=== PATIENT | male | born 1970 | race Caucasian/White ===

== ENCOUNTER 2019-10-17 01:32 | Inpatient (IN) | payer MEDICAID ==
[~2019-10-17] VITALS: Ht 165.1 cm; Wt 80.6 kg
[2019-10-17] MEDS ORDERED: NO HOME MEDS (01:40)
[2019-10-17] MEDS ORDERED: magnesium hydroxide 30ml (MOM) UD suspension PO PRN (02:40)
[2019-10-17] MEDS ORDERED: acetaminophen 325mg tablet PO PRN (02:40)
[2019-10-17] MEDS ORDERED: mag hydrox/Alum hydrox/simeth 30ml oral suspension PO PRN (02:40)
[2019-10-17] MEDS ORDERED: ondansetron/PF 4mg/2ml inj IV PRN (02:40)
[2019-10-17] MEDS ORDERED: morphine 2 MG/ML inj. syringe IV PRN (02:40)
[2019-10-17] MEDS: normal saline 1000ml 1,000 ML IV SCH ×4 (03:06→19:38)
--- NOTE | 2019-10-17 03:43 | NUR ---
Patient in room [facility]. I have received report from Ej MEEKS and had the opportunity to ask questions and assume patient care.
[2019-10-17 03:44] VITALS: BP 136/89
[2019-10-17] MEDS ORDERED: albuterol 2.5 MG/3 ML nebule NEB PRN (04:05)
--- NOTE | 2019-10-17 06:36 | NUR ---
Problems reprioritized. Patient report given, questions answered & plan of care reviewed with Fallon MEEKS.
[2019-10-17 07:40] VITALS: BP 136/84
[2019-10-17] MEDS: metroNIDAZOLE-Flagyl 500mg/NS 100 ML IV SCH ×2 (08:02→15:24)
[2019-10-17] MEDS: morphine 2 MG/ML inj. syringe IV PRN ×2 (08:08→21:17)
[2019-10-17] MEDS: piperacillin/tazo 3.375gm/50ml 50 ML IV SCH ×3 (09:33→23:59)
[2019-10-17 10:10] LABS: ALBUMIN 2.6 G/DL (3.4-5.0); ANION GAP 9 (8-16); BLOOD UREA NITROGEN 19 MG/DL (7-18); BUN/CREATININE RATIO 19.8 (5.4-32.0); CHLORIDE 103 MMOL/L (99-107); CREATININE 0.96 MG/DL (0.60-1.10); GLUCOSE 109 MG/DL (70-104); POTASSIUM 4.1 MMOL/L (3.5-5.1); SODIUM 134 MMOL/L (135-145); TOTAL CARBON DIOXIDE 21.6 MMOL/L (24-32); eGFR 84 ML/MIN
[2019-10-17 10:12] LABS: BASOPHILS # (AUTO) 0.2 X10'3 (0-0.2); BASOPHILS % (AUTO) 1.1 % (0-1); EOSINOPHILS # (AUTO) 0.1 X10'3 (0-0.9); EOSINOPHILS % (AUTO) 0.4 % (0-6); HEMATOCRIT 39.3 % (42.0-52.0); HEMOGLOBIN 13.5 g/dl (14.0-17.9); LYMPHOCYTES % (AUTO) 6.4 % (21-51); MEAN CORPUSCULAR HEMOGLOBIN 31.1 PG (27.0-31.0); MEAN CORPUSCULAR HGB CONC 34.2 g/dL (33.0-36.5); MEAN CORPUSCULAR VOLUME 90.9 FL (78-98); MEAN PLATELET VOLUME 7.8 FL (7.4-10.4); MONOCYTES # (AUTO) 0.7 X10'3 (0-0.9); MONOCYTES % (AUTO) 4.6 % (2-12); NEUTROPHILS # (AUTO) 13.6 X10'3 (1.8-7.7); NEUTROPHILS % (AUTO) 87.5 % (42-75); PLATELET COUNT 265 X10'3 (140-440); RED BLOOD COUNT 4.32 X10'6 (4.70-6.10); RED CELL DISTRIBUTION WIDTH 13.3 % (11.5-14.5); WHITE BLOOD COUNT 15.5 X10'3 (4.5-11.0)
[2019-10-17 10:44] LABS: TOTAL CELLS COUNTED 100
[2019-10-17 10:45] LABS: PLATELET ESTIMATE NORMAL
[2019-10-17 11:41] VITALS: BP 124/84
--- NOTE | 2019-10-17 18:24 | NUR ---
Problems reprioritized. Patient report given, questions answered & plan of care reviewed with CONSTANTINO GLASER.
--- NOTE | 2019-10-17 18:30 | NUR ---
Patient in room [facility]. I have received report from YULIET and had the opportunity to ask questions and assume patient care.
[2019-10-17 19:00] VITALS: BP 148/93
[2019-10-17] MEDS: lactobacillus rhamnosus 10,000 MMU CELLS/CAPSULE PO SCH (21:11)
[2019-10-17 23:30] VITALS: BP 134/89
[2019-10-18] MEDS: normal saline 1000ml 1,000 ML IV SCH ×3 (02:35→17:40)
[2019-10-18 05:39] LABS: BASOPHILS % (AUTO) 0.2 % (0-1); EOSINOPHILS # (AUTO) 0.3 X10'3 (0-0.9); HEMATOCRIT 37.4 % (42.0-52.0); HEMOGLOBIN 12.6 g/dl (14.0-17.9); LYMPHOCYTES # (AUTO) 1.5 X10'3 (1.1-4.8); LYMPHOCYTES % (AUTO) 11.2 % (21-51); MEAN CORPUSCULAR HEMOGLOBIN 30.7 PG (27.0-31.0); MEAN CORPUSCULAR HGB CONC 33.7 g/dL (33.0-36.5); MEAN CORPUSCULAR VOLUME 91.2 FL (78-98); MEAN PLATELET VOLUME 7.9 FL (7.4-10.4); MONOCYTES # (AUTO) 0.8 X10'3 (0-0.9); MONOCYTES % (AUTO) 5.9 % (2-12); NEUTROPHILS # (AUTO) 10.5 X10'3 (1.8-7.7); NEUTROPHILS % (AUTO) 80.7 % (42-75); PLATELET COUNT 284 X10'3 (140-440); RED BLOOD COUNT 4.11 X10'6 (4.70-6.10); RED CELL DISTRIBUTION WIDTH 13.2 % (11.5-14.5)
[2019-10-18 05:58] LABS: ALANINE AMINOTRANSFERASE 12 U/L (12-78); ALBUMIN 2.3 G/DL (3.4-5.0); ALBUMIN/GLOBULIN RATIO 0.6 (1.1-1.5); ALKALINE PHOSPHATASE 85 IU/L (46-116); ANION GAP 10 (8-16); ASPARTATE AMINO TRANSFERASE 12 U/L (10-37); BILIRUBIN,TOTAL 0.6 MG/DL (0.1-1.0); BLOOD UREA NITROGEN 17 MG/DL (7-18); BUN/CREATININE RATIO 17.5 (5.4-32.0); CALCIUM 7.9 MG/DL (8.5-10.1); CHLORIDE 105 MMOL/L (99-107); CREATININE 0.97 MG/DL (0.60-1.10); GLUCOSE 95 MG/DL (70-104); POTASSIUM 3.9 MMOL/L (3.5-5.1); SODIUM 137 MMOL/L (135-145); TOTAL CARBON DIOXIDE 21.6 MMOL/L (24-32); TOTAL PROTEIN 6.2 G/DL (6.4-8.2); eGFR 83 ML/MIN
--- NOTE | 2019-10-18 06:23 | NUR ---
Problems reprioritized. Patient report given, questions answered & plan of care reviewed with YULIET.
[2019-10-18 07:35] VITALS: BP 131/93
[2019-10-18] MEDS: piperacillin/tazo 3.375gm/50ml 50 ML IV SCH ×3 (08:17→23:39)
[2019-10-18] MEDS: lactobacillus rhamnosus 10,000 MMU CELLS/CAPSULE PO SCH ×2 (08:17→21:32)
[2019-10-18 12:09] VITALS: BP 119/82
--- NOTE | 2019-10-18 18:07 | NUR ---
Problems reprioritized. Patient report given, questions answered & plan of care reviewed with CONSTANTINO GLASER.
--- NOTE | 2019-10-18 18:30 | NUR ---
Patient in room [facility]. I have received report from YULIET and had the opportunity to ask questions and assume patient care.
[2019-10-18 19:00] VITALS: BP 131/85
[2019-10-18] MEDS: morphine 2 MG/ML inj. syringe IV PRN (21:30)
[2019-10-18] MEDS: diatr meglu/diatrizoate 30ml oral sol.-(3 dose) bottle PO SCH (21:32)
[2019-10-18 23:30] VITALS: BP 149/93
[2019-10-19] MEDS: normal saline 1000ml 1,000 ML IV SCH ×4 (00:33→19:28)
[2019-10-19 06:26] LABS: BASOPHILS % (AUTO) 0.3 % (0-1); EOSINOPHILS # (AUTO) 0.3 X10'3 (0-0.9); EOSINOPHILS % (AUTO) 3.1 % (0-6); HEMATOCRIT 35.6 % (42.0-52.0); HEMOGLOBIN 11.9 g/dl (14.0-17.9); LYMPHOCYTES # (AUTO) 1.6 X10'3 (1.1-4.8); LYMPHOCYTES % (AUTO) 14.7 % (21-51); MEAN CORPUSCULAR HEMOGLOBIN 30.4 PG (27.0-31.0); MEAN CORPUSCULAR HGB CONC 33.3 g/dL (33.0-36.5); MEAN CORPUSCULAR VOLUME 91.3 FL (78-98); MEAN PLATELET VOLUME 7.6 FL (7.4-10.4); NEUTROPHILS % (AUTO) 72.9 % (42-75); PLATELET COUNT 310 X10'3 (140-440); RED CELL DISTRIBUTION WIDTH 13.2 % (11.5-14.5)
[2019-10-19 06:45] LABS: ALANINE AMINOTRANSFERASE 14 U/L (12-78); ALBUMIN 2.3 G/DL (3.4-5.0); ALBUMIN/GLOBULIN RATIO 0.6 (1.1-1.5); ALKALINE PHOSPHATASE 89 IU/L (46-116); ANION GAP 8 (8-16); ASPARTATE AMINO TRANSFERASE 15 U/L (10-37); BILIRUBIN,TOTAL 0.5 MG/DL (0.1-1.0); BLOOD UREA NITROGEN 11 MG/DL (7-18); BUN/CREATININE RATIO 12.6 (5.4-32.0); CALCIUM 7.7 MG/DL (8.5-10.1); CHLORIDE 105 MMOL/L (99-107); CREATININE 0.87 MG/DL (0.60-1.10); GLUCOSE 89 MG/DL (70-104); SODIUM 136 MMOL/L (135-145); TOTAL CARBON DIOXIDE 23.2 MMOL/L (24-32); TOTAL PROTEIN 6.1 G/DL (6.4-8.2); eGFR > 90 ML/MIN
--- NOTE | 2019-10-19 06:55 | NUR ---
Patient in room [facility]. I have received report from Anna MEEKS and had the opportunity to ask questions and assume patient care.
[2019-10-19 07:00] VITALS: BP 120/91
[2019-10-19] MEDS: lactobacillus rhamnosus 10,000 MMU CELLS/CAPSULE PO SCH ×2 (07:22→19:27)
[2019-10-19] MEDS: diatr meglu/diatrizoate 30ml oral sol.-(3 dose) bottle PO SCH ×2 (07:22→09:57)
[2019-10-19] MEDS: piperacillin/tazo 3.375gm/50ml 50 ML IV SCH ×3 (07:34→23:16)
[2019-10-19] MEDS ORDERED: iohexol 300mg/ml 100ml inj. ONE (09:55)
[2019-10-19 11:00] VITALS: BP 134/105
[2019-10-19 11:58] VITALS: BP 134/102
--- NOTE | 2019-10-19 18:15 | NUR ---
Patient in room [facility]. I have received report from CONSTANTINO Vazquez and had the opportunity to ask questions and assume patient care.
--- NOTE | 2019-10-19 18:50 | NUR ---
Problems reprioritized. Patient report given, questions answered & plan of care reviewed with Kathya MEEKS.
[2019-10-19 19:54] VITALS: BP 143/88
--- NOTE | 2019-10-19 20:00 | NUR ---
Pt states up to restroom every hour to urinate and have a BM. States stools are brown and lose.
[2019-10-20] VITALS: BP 136/90
[2019-10-20] MEDS: normal saline 1000ml 1,000 ML IV SCH (01:48)
[2019-10-20 05:15] LABS: ALANINE AMINOTRANSFERASE 14 U/L (12-78); ALBUMIN 2.2 G/DL (3.4-5.0); ALBUMIN/GLOBULIN RATIO 0.6 (1.1-1.5); ALKALINE PHOSPHATASE 75 IU/L (46-116); ANION GAP 8 (8-16); ASPARTATE AMINO TRANSFERASE 15 U/L (10-37); BILIRUBIN,TOTAL 0.3 MG/DL (0.1-1.0); BLOOD UREA NITROGEN 9 MG/DL (7-18); BUN/CREATININE RATIO 10.3 (5.4-32.0); CALCIUM 7.8 MG/DL (8.5-10.1); CHLORIDE 105 MMOL/L (99-107); CREATININE 0.87 MG/DL (0.60-1.10); GLUCOSE 94 MG/DL (70-104); POTASSIUM 3.8 MMOL/L (3.5-5.1); SODIUM 137 MMOL/L (135-145); TOTAL CARBON DIOXIDE 23.6 MMOL/L (24-32); TOTAL PROTEIN 5.9 G/DL (6.4-8.2); eGFR > 90 ML/MIN
[2019-10-20 05:34] LABS: BASOPHILS % (AUTO) 0.3 % (0-1); EOSINOPHILS # (AUTO) 0.3 X10'3 (0-0.9); EOSINOPHILS % (AUTO) 3.1 % (0-6); HEMATOCRIT 34.3 % (42.0-52.0); HEMOGLOBIN 11.8 g/dl (14.0-17.9); LYMPHOCYTES # (AUTO) 1.8 X10'3 (1.1-4.8); LYMPHOCYTES % (AUTO) 17.3 % (21-51); MEAN CORPUSCULAR HEMOGLOBIN 31.2 PG (27.0-31.0); MEAN CORPUSCULAR HGB CONC 34.3 g/dL (33.0-36.5); MEAN CORPUSCULAR VOLUME 90.8 FL (78-98); MEAN PLATELET VOLUME 7.5 FL (7.4-10.4); MONOCYTES % (AUTO) 9.9 % (2-12); NEUTROPHILS # (AUTO) 7.3 X10'3 (1.8-7.7); NEUTROPHILS % (AUTO) 69.4 % (42-75); PLATELET COUNT 309 X10'3 (140-440); RED BLOOD COUNT 3.78 X10'6 (4.70-6.10); RED CELL DISTRIBUTION WIDTH 12.9 % (11.5-14.5); WHITE BLOOD COUNT 10.5 X10'3 (4.5-11.0)
--- NOTE | 2019-10-20 06:37 | NUR ---
Problems reprioritized. Patient report given, questions answered & plan of care reviewed with CONSTANTINO Vazquez.
--- NOTE | 2019-10-20 06:50 | NUR ---
Patient in room [facility]. I have received report from Kathya MEEKS and had the opportunity to ask questions and assume patient care.
[2019-10-20 08:00] VITALS: BP 139/95
[2019-10-20] MEDS: lactobacillus rhamnosus 10,000 MMU CELLS/CAPSULE PO SCH (08:01)
[2019-10-20] MEDS: piperacillin/tazo 3.375gm/50ml 50 ML IV SCH (08:01)
[2019-10-20 11:00] VITALS: BP 152/94
[2019-10-20] MEDS ORDERED: LEVO750T21 PO (15:15)
[2019-10-20] MEDS ORDERED: METR-159 PO (15:15)
[2019-10-20] MEDS ORDERED: HYDR-4383 PO ×2 (15:15→15:17)
--- NOTE | 2019-10-20 16:20 | NUR ---
Pt DC to home in [place]. Pt is A & Ox4 and in no apparent distress. Pt has not taken no pain meds in the last 2 days and states he is feeling very well. Pt will follow up with Dr Shaw in two weeks. Pt verbalizes understanding of all DC instructions and was able to teach back the importance of finishing antibiotics. Pt packed all of his belongings and will drive himself home. Pt ate regular meals on since this morning and has tolerated meals well. No pain. Pt walked to the front where he went home.
--- NOTE | 2019-10-20 16:25 | NUR ---
pt DC to [facility] where pt lived with his . Pt is A & O x4 and in no apparent distress. Pt verbalizes understanding of all DC orders and understands the importance of following up with Dr Sawyer and Clay . [facility] was also informed of the importance of following up with Dr's mention above. 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 pt's IV cath was removed and it was intact. Pt was loaded onto his own wheel chair brought in by [facility] advanced practice psychiatric nurse. Pt was helped into wheelchair. Pt taken by [facility] employee with all of his personal belongings. Addendum: 10/20/19 at 1939 by Taylor Armando RN wrong pt
== END 2019-10-20 16:19 | disposition home or self-care (01) | DRG 244 ==
LOC: ER 01:33 → ED HOLD 02:37 → SUR 3N 03:23
PROVIDERS: ADMIT Internal Medicine; ATTEND Family Medicine
DX: K57.20 Diverticulitis of large intestine with perforation and abscess without bleeding (principal); K65.8 Other peritonitis; Z79.899 Other long term (current) drug therapy
CPT/HCPCS: 36415; 74177; 80048; 80053; 85025; 87081; 94760; 99285; G0378; J2270; J2543; J3490; J7030; Q9963; Q9967

== ENCOUNTER 2020-07-26 18:58 | Emergency (ER) | payer MEDICAID ==
[~2020-07-26] VITALS: Ht 165.1 cm; Wt 70.5 kg
[~2020-07-26 18:58] MED LIST: HYDR-4383 PO
--- NOTE | 2020-07-26 19:22 | NUR ---
PT TAKEN BACK TO ROOM 8 FRMO TRIAGE AND PLACED IN AIRBORN ISOLATION PRECAUTIONS. OVEN UNLOADERRAFY UPDATED OF PT R/O COVID.
[2020-07-26] MEDS ORDERED: normal saline 1000ML IV soln IV ONE (19:30)
[2020-07-26] MEDS ORDERED: acetaminophen 325mg tablet PO ONE (19:30)
[2020-07-26 20:13] LABS: MEAN CORPUSCULAR HEMOGLOBIN 30.9 PG (27.0-31.0); MONOCYTES # (AUTO) 0.4 X10'3 (0-0.9)
[2020-07-26 20:16] LABS: BASOPHILS % (AUTO) 0.6 % (0-1); EOSINOPHILS % (AUTO) 0 % (0-6); HEMATOCRIT 51.6 % (42.0-52.0); HEMOGLOBIN 17.7 g/dl (14.0-17.9); LYMPHOCYTES # (AUTO) 1.7 X10'3 (1.1-4.8); LYMPHOCYTES % (AUTO) 22.9 % (21-51); MEAN CORPUSCULAR HGB CONC 34.4 g/dL (33.0-36.5); MEAN CORPUSCULAR VOLUME 89.8 FL (78-98); MEAN PLATELET VOLUME 7.5 FL (7.4-10.4); MONOCYTES % (AUTO) 4.9 % (2-12); NEUTROPHILS # (AUTO) 5.2 X10'3 (1.8-7.7); NEUTROPHILS % (AUTO) 71.6 % (42-75); PLATELET COUNT 236 X10'3 (140-440); RED BLOOD COUNT 5.74 X10'6 (4.70-6.10); RED CELL DISTRIBUTION WIDTH 13.4 % (11.5-14.5); WHITE BLOOD COUNT 7.2 X10'3 (4.5-11.0)
[2020-07-26 20:30] LABS: ALANINE AMINOTRANSFERASE 46 U/L (12-78); ALBUMIN 3.8 G/DL (3.4-5.0); ALBUMIN/GLOBULIN RATIO 0.8 (1.1-1.5); ALKALINE PHOSPHATASE 144 IU/L (46-116); ANION GAP 12 (8-16); ASPARTATE AMINO TRANSFERASE 47 U/L (10-37); BILIRUBIN,TOTAL 0.4 MG/DL (0.1-1.0); BLOOD UREA NITROGEN 21 MG/DL (7-18); BUN/CREATININE RATIO 16.7 (5.4-32.0); CALCIUM 9.2 MG/DL (8.5-10.1); CHLORIDE 95 MMOL/L (99-107); CREATININE 1.26 MG/DL (0.60-1.10); GLUCOSE 99 MG/DL (70-104); POTASSIUM 4.6 MMOL/L (3.5-5.1); SODIUM 132 MMOL/L (135-145); TOTAL PROTEIN 8.6 G/DL (6.4-8.2); eGFR 61 ML/MIN
[2020-07-26 22:00] LABS: CLARITY,URINE SLIGHTLY CLOUDY (Clear); GLUCOSE, URINE NEGATIVE (Neg); KETONES,URINE 15 mg/dl (Neg); LEUKOCYTE ESTERASE ,URINE NEGATIVE (Neg); NITRITES, URINE NEGATIVE (Neg); OCCULT BLOOD,URINE NEGATIVE (Neg); PH,URINE 5.5 (4.8-8.0); PROTEIN,URINE 30 mg/dl (Neg); UROBILINOGEN,URINE 0.2 E.U/dL (0.2-1.0)
[2020-07-26 22:02] LABS: COLOR,URINE DARK YELLOW (Yellow); UA COLLECTION TYPE CLN CATCH MIDSTREAM
[2020-07-26 22:07] LABS: BACTERIA,URINE FEW /HPF (Neg); MUCUS STRANDS MANY /LPF (Neg); RBC,URINE NONE SEEN /HPF (0-2); SQUAMOUS EPITHELIAL CELL,UR FEW /LPF (FEW); WBC,URINE 0-4 /HPF (0-4)
[2020-07-26 22:08] LABS: AMORPHOUS URATES 1+
[2020-07-26 22:16] LABS: URINE AMPHETAMINE SCREEN POSITIVE (Neg); URINE BARBITUATE SCREEN NEGATIVE (Neg); URINE BENZODIAZEPINES SCREEN NEGATIVE (Neg); URINE CANNABINOID SCREEN POSITIVE (Neg); URINE COCAINE SCREEN NEGATIVE (Neg); URINE METHADONE SCREEN NEGATIVE (Neg); URINE OPIATE SCREEN NEGATIVE (Neg); URINE PHENCYCLIDINE SCREEN NEGATIVE (Neg)
[2020-07-27 01:19] VITALS: BP 122/71
== END 2020-07-27 01:21 | disposition home or self-care (01) ==
LOC: ER 18:59
DX: R50.9 Fever, unspecified (principal); Z20.822 Contact with and (suspected) exposure to COVID-19; R53.1 Weakness; K63.2 Fistula of intestine; N32.1 Vesicointestinal fistula; R63.0 Anorexia; R05 Cough; R10.84 Generalized abdominal pain; F17.200 Nicotine dependence, unspecified, uncomplicated; Z72.89 Other problems related to lifestyle; Z79.899 Other long term (current) drug therapy
CPT/HCPCS: 36415; 71045; 74176; 80053; 80305; 81001; 83605; 83735; 84145; 85025; 87040; 87502; 87503; 87635; 93005; 96360; 96361; 99285; C9803; J7030

== ENCOUNTER 2022-02-06 11:20 | Emergency (ER) | payer MEDICAID ==
[~2022-02-06] VITALS: Ht 165.1 cm; Wt 72.7 kg
[2022-02-06 12:30] LABS: BASOPHILS # (AUTO) 0.2 X10'3 (0-0.2); BASOPHILS % (AUTO) 1.1 % (0-1); EOSINOPHILS # (AUTO) 0.2 X10'3 (0-0.9); HEMATOCRIT 44.3 % (42.0-52.0); HEMOGLOBIN 14.8 g/dl (14.0-17.9); LYMPHOCYTES # (AUTO) 3.7 X10'3 (1.1-4.8); LYMPHOCYTES % (AUTO) 24.6 % (21-51); MEAN CORPUSCULAR HEMOGLOBIN 29.6 PG (27.0-31.0); MEAN CORPUSCULAR HGB CONC 33.4 g/dL (33.0-36.5); MEAN CORPUSCULAR VOLUME 88.7 FL (78-98); MEAN PLATELET VOLUME 6.7 FL (7.4-10.4); MONOCYTES # (AUTO) 0.9 X10'3 (0-0.9); MONOCYTES % (AUTO) 5.7 % (2-12); NEUTROPHILS # (AUTO) 10.1 X10'3 (1.8-7.7); NEUTROPHILS % (AUTO) 67.6 % (42-75); PLATELET COUNT 585 X10'3 (140-440); RED CELL DISTRIBUTION WIDTH 13.3 % (11.5-14.5); WHITE BLOOD COUNT 14.9 X10'3 (4.5-11.0)
[2022-02-06] MEDS ORDERED: normal saline 1000ml 1,000 ML IV ONE (13:45)
[2022-02-06] MEDS ORDERED: ondansetron/PF 4mg/2ml inj IV ONE (13:45)
[2022-02-06] MEDS ORDERED: morphine 4 MG/ML inj SYRINge IV ONE (13:45)
[2022-02-06 14:36] VITALS: BP 100/82
[2022-02-06 15:06] LABS: ALANINE AMINOTRANSFERASE 17 U/L (12-78); ALBUMIN 3.5 G/DL (3.4-5.0); ALBUMIN/GLOBULIN RATIO 0.8 (1.1-1.5); ALKALINE PHOSPHATASE 99 IU/L (46-116); ANION GAP 13 (8-16); ASPARTATE AMINO TRANSFERASE 19 U/L (10-37); BILIRUBIN,TOTAL 0.3 MG/DL (0.1-1.0); BLOOD UREA NITROGEN 21 MG/DL (7-18); BUN/CREATININE RATIO 17.9 (5.4-32.0); CALCIUM 9.4 MG/DL (8.5-10.1); CHLORIDE 103 MMOL/L (99-107); CREATININE 1.17 MG/DL (0.60-1.10); GLUCOSE 131 MG/DL (70-104); LIPASE 121 U/L (73-393); POTASSIUM 4.2 MMOL/L (3.5-5.1); SODIUM 139 MMOL/L (135-145); TOTAL CARBON DIOXIDE 22.7 MMOL/L (24-32); TOTAL PROTEIN 7.8 G/DL (6.4-8.2); eGFR 66 ML/MIN
[2022-02-06] MEDS ORDERED: AZIT-31 PO (16:29)
== END 2022-02-06 16:47 | disposition home or self-care (01) ==
LOC: ER 11:21
DX: N45.2 Orchitis (principal); R10.31 Right lower quadrant pain; Z79.899 Other long term (current) drug therapy
CPT/HCPCS: 36415; 74176; 76870; 80053; 83690; 84145; 85025; 93976; 96361; 96374; 96375; 99285; J2270; J2405; J7030

== ENCOUNTER 2022-03-19 05:29 | Inpatient (IN) | payer MEDICAID ==
[2022-03-12 10:03] LABS: CLARITY,URINE CLOUDY (Clear); COLOR,URINE YELLOW (Yellow); GLUCOSE, URINE NEGATIVE (Neg); KETONES,URINE NEGATIVE (Neg); LEUKOCYTE ESTERASE ,URINE SMALL (Neg); NITRITES, URINE NEGATIVE (Neg); OCCULT BLOOD,URINE TRACE-INTACT (Neg); PH,URINE 6.5 (4.8-8.0); PROTEIN,URINE NEGATIVE (Neg); UROBILINOGEN,URINE 0.2 E.U/dL (0.2-1.0)
[2022-03-12 10:05] LABS: BASOPHILS # (AUTO) 0.1 X10'3 (0-0.2); BASOPHILS % (AUTO) 0.5 % (0-1); EOSINOPHILS # (AUTO) 0.2 X10'3 (0-0.9); EOSINOPHILS % (AUTO) 2.3 % (0-6); LYMPHOCYTES # (AUTO) 2.9 X10'3 (1.1-4.8); LYMPHOCYTES % (AUTO) 29.3 % (21-51); MEAN CORPUSCULAR HEMOGLOBIN 30.1 PG (27.0-31.0); MEAN CORPUSCULAR HGB CONC 33.9 g/dL (33.0-36.5); MEAN CORPUSCULAR VOLUME 88.8 FL (78-98); MEAN PLATELET VOLUME 7.1 FL (7.4-10.4); MONOCYTES # (AUTO) 0.7 X10'3 (0-0.9); MONOCYTES % (AUTO) 7.5 % (2-12); NEUTROPHILS # (AUTO) 5.9 X10'3 (1.8-7.7); NEUTROPHILS % (AUTO) 60.4 % (42-75); PRE OP HEMATOCRIT 43.4 % (42.0-52.0); PRE OP HEMOGLOBIN 14.7 g/dL (14.0-17.9); PRE OP PLATELET COUNT 357 X10'3 (140-440); RED BLOOD COUNT 4.88 X10'6 (4.70-6.10); RED CELL DISTRIBUTION WIDTH 13.7 % (11.5-14.5)
[2022-03-12 10:18] LABS: UA COLLECTION TYPE VOIDED
[2022-03-12 10:26] LABS: ALBUMIN 3.9 G/DL (3.4-5.0); ALBUMIN/GLOBULIN RATIO 1.1 (1.1-1.5); ALKALINE PHOSPHATASE 126 IU/L (46-116); BLOOD UREA NITROGEN 19 MG/DL (7-18); BUN/CREATININE RATIO 17.4 (5.4-32.0); CALCIUM 8.7 MG/DL (8.5-10.1); CHLORIDE 102 MMOL/L (99-107); CREATININE 1.09 MG/DL (0.60-1.10); PRE OP ALT 41 U/L (30-65); PRE OP ANION GAP 8 (8-16); PRE OP AST 31 U/L (10-37); PRE OP BILIRUB, TOTAL 0.4 MG/DL (0.0-1.0); PRE OP GLUCOSE 102 MG/DL (70-104); PRE OP SODIUM 138 MMOL/L (135-145); TOTAL CARBON DIOXIDE 27.9 MMOL/L (24-32); TOTAL PROTEIN 7.5 G/DL (6.4-8.2); eGFR 72 ML/MIN
[2022-03-12 10:29] LABS: BACTERIA,URINE 1+ /HPF (Neg); MUCUS STRANDS NONE SEEN /LPF (Neg); SQUAMOUS EPITHELIAL CELL,UR FEW /LPF (FEW)
[2022-03-12 10:41] LABS: TRANSITIONAL EPI CELLS,URINE FEW /HPF; WBC,URINE 30-50 /HPF (0-4)
[2022-03-19] VITALS (20 sets, daily range): BP systolic 102–156; BP diastolic 48–105
[~2022-03-19] VITALS: Ht 165.1 cm; Wt 72.6 kg
[~2022-03-19 05:29] MED LIST changes: -HYDR-4383 PO; +NO HOME MEDS; +ringers solution, lacted 1,000 ML IV SCH
[2022-03-19] MEDS ORDERED: albuterol 2.5 MG/3 ML nebule NEB ONE (05:30)
[2022-03-19] MEDS ORDERED: ceFAZolin inj. 2,000 MG in dextrose 5%-water 100 ML IV ONE (05:30)
[2022-03-19] MEDS ORDERED: famotidine 20mg tablet PO ONE (05:30)
[2022-03-19] MEDS ORDERED: fentaNYL/PF 50MCG/1 ML 2ML syringe ONE (06:37)
[2022-03-19] MEDS ORDERED: MIDAZolam 1 MG/ML 5ML VIAL ONE (06:38)
--- NOTE | 2022-03-19 13:16 | NUR ---
(5030) PT RETRIEVED FROM PAS UNIT BY GI LAB. (6675) RETURNED TO PAS UNIT. DROWSY BUT AWAKENS EASILY. SAO2 96-100% RA, P 69, RR 14. IV PATENT LEFT HAND #20 WITH LR AT TKO ON A PUMP.(1315) PT HAS BEEN SLEEPING MOSTLY. CONT O2 MONITOR REMAINS BETWEEN 96-100% RA, BP112/82, P 74, R 15. DENIES ANY DISCOMFORT WHEN ASKED, AWAITING SURGERY
--- NOTE | 2022-03-19 13:33 | NUR ---
PT'S YANDEL ARRIVED. PT UP WALKING, VOID BRP. YANDEL TAKING 1 CELL PHONE HOME TO CHARGE
[2022-03-19] MEDS ORDERED: morphine 4 MG/ML inj SYRINge IV PRN (13:50)
[2022-03-19] MEDS ORDERED: hydrALAZINE 20mg/ml inj. IV PRN (13:50)
[2022-03-19] MEDS ORDERED: labetalol 20mg/4ml (5mg/ml) syringe IV PRN (13:50)
[2022-03-19] MEDS ORDERED: acetaminophen 1,000mg/100ml IV 100 ML IV PRN (13:50)
[2022-03-19] MEDS ORDERED: ringers solution, lacted 1,000 ML IV SCH (13:50)
[2022-03-19] MEDS ORDERED: morphine 2 MG/ML inj. syringe IV PRN (13:50)
[2022-03-19] MEDS ORDERED: proCHLORperazine 10 MG/2 ml inj IV PRN (13:50)
[2022-03-19] MEDS ORDERED: meperidine/PF 25mg/ml syringe IV PRN ×3 (13:50)
[2022-03-19] MEDS ORDERED: ondansetron/PF 4mg/2ml inj IV PRN ×2 (13:50→19:05)
[2022-03-19] MEDS ORDERED: LIDOcaine 1% 30ml preserv. free vial ONE (13:58)
[2022-03-19] MEDS ORDERED: BUPIVAcaine 0.5% inj/PF 30 ML ONE (13:59)
[2022-03-19] MEDS ORDERED: INDOCYANINE GREEN 25 MG/10 ML VIAL IV ONE (14:01)
[2022-03-19] MEDS ORDERED: midazolam 1 mg/ML 2ml injection ONE (14:27)
[2022-03-19] MEDS ORDERED: fentaNYL /PF 50mcg/ml 5ml ampule ONE ×2 (14:28→18:23)
[2022-03-19] MEDS ORDERED: metroNIDAZOLE-Flagyl 500mg/NS 100 ML IV ONE (15:02)
[2022-03-19] MEDS ORDERED: propofol inj 20 ML IV ONE (15:04)
[2022-03-19] MEDS ORDERED: LIDOcaine 1%/PF 5ML 10 MG/ML VIAL ONE ×2 (15:04)
[2022-03-19] MEDS ORDERED: rocuronium 10mg/ml inj IV ONE ×2 (15:04→18:23)
[2022-03-19] MEDS ORDERED: dexamethasone sod phosphate 4mg/ml inj. ONE (15:38)
[2022-03-19] MEDS ORDERED: ondansetron/PF 4mg/2ml inj ONE (15:38)
[2022-03-19] MEDS ORDERED: BUPIVAcaine 0.5% inj/PF 30 ml vial IJ ONE (15:50)
[2022-03-19] MEDS ORDERED: neostigmine methylsulfate 1 MG/ML 10ml vial ONE (18:50)
[2022-03-19] MEDS ORDERED: glycopyrrolate 0.2mg/ml inj ONE (18:50)
[2022-03-19] MEDS ORDERED: naloxone 0.4 mg/ml inj IV PRN (19:05)
--- NOTE | 2022-03-19 19:07 | NUR ---
Received from OR via HOSPITAL BED, accompanied by Anesthesiologist and report given by CHUCK Anesthesiologist. PATIENT WAKING UP, DENIES PAIN, V/S WNL, SCD ON , PIV 20G LEFT HAND, ABDOMEN DRESSING C/D/I. WILLIS CATHETER DRAINING CLEAR YELLOW URINE. Addendum: 03/19/22 at 1935 by Espinoza Rangel RN Amended: Links added.
[2022-03-19] MEDS: HYDROmorph/NS 0.2 mg/ml PCA 100 ML IV SCH ×3 (19:38→23:00)
--- NOTE | 2022-03-19 19:57 | NUR ---
PATIENT HAS MET ALL CRITERIA FOR TRANSFER TO THE SURGICAL FLOOR. VSS. DRESSINGS INTACT. BED LOW, CALL LIGHT PRESENT AND 2 RAILS UP. RN PRESENT TO ACCEPT CARE OF PATIENT AND REPORT HAS BEEN CALLED. ALL QUESTIONS ANSWERED TO ACCEPTING RN. Addendum: 03/19/22 at 2009 by Espinoza Rangel RN Amended: Links added.
--- NOTE | 2022-03-19 20:05 | NUR ---
pt arrived his at the bedside. received report prior to pt's arrival.
[2022-03-19] MEDS: potassium CL 20mEq in D5-1/2NS 1,000 ML IV SCH (22:09)
[2022-03-19] MEDS: normal saline 1000ml 1,000 ML IV SCH (22:35)
[2022-03-19] MEDS: piperacillin/tazo 4.5gm/100ml 100 ML IV SCH (23:21)
[2022-03-19] MEDS: ketorolac tromethamine 15mg/ml inj. IV SCH (23:21)
[2022-03-20] MEDS: HYDROmorph/NS 0.2 mg/ml PCA 100 ML IV SCH ×12 (01:00→23:00)
[2022-03-20 02:00] VITALS: BP 101/62
[2022-03-20] MEDS: potassium CL 20mEq in D5-1/2NS 1,000 ML IV SCH ×3 (05:38→20:38)
[2022-03-20 06:00] VITALS: BP 106/62
--- NOTE | 2022-03-20 06:34 | NUR ---
Problems reprioritized. Patient report given, questions answered & plan of care reviewed with CONSTANTINO AKERS.
--- NOTE | 2022-03-20 06:44 | NUR ---
Patient in room [facility] 344. I have received report from Zoila MEEKS and had the opportunity to ask questions and assume patient care.
[2022-03-20 07:07] LABS: BASOPHILS % (AUTO) 0.1 % (0-1); EOSINOPHILS % (AUTO) 0 % (0-6); HEMATOCRIT 38.8 % (42.0-52.0); HEMOGLOBIN 13.1 g/dl (14.0-17.9); LYMPHOCYTES # (AUTO) 1.1 X10'3 (1.1-4.8); LYMPHOCYTES % (AUTO) 9.5 % (21-51); MEAN CORPUSCULAR HEMOGLOBIN 30.3 PG (27.0-31.0); MEAN CORPUSCULAR HGB CONC 33.9 g/dL (33.0-36.5); MEAN CORPUSCULAR VOLUME 89.4 FL (78-98); MEAN PLATELET VOLUME 7.6 FL (7.4-10.4); MONOCYTES # (AUTO) 0.6 X10'3 (0-0.9); MONOCYTES % (AUTO) 5.1 % (2-12); NEUTROPHILS # (AUTO) 10.4 X10'3 (1.8-7.7); NEUTROPHILS % (AUTO) 85.3 % (42-75); PLATELET COUNT 306 X10'3 (140-440); RED BLOOD COUNT 4.34 X10'6 (4.70-6.10); RED CELL DISTRIBUTION WIDTH 13.9 % (11.5-14.5); WHITE BLOOD COUNT 12.2 X10'3 (4.5-11.0)
[2022-03-20] MEDS: albuterol 2.5 MG/3 ML nebule NEB SCH ×4 (07:28→19:42)
[2022-03-20 08:01] LABS: ALBUMIN 2.9 G/DL (3.4-5.0); ANION GAP 8 (8-16); BLOOD UREA NITROGEN 17 MG/DL (7-18); BUN/CREATININE RATIO 14.5 (5.4-32.0); CALCIUM 7.3 MG/DL (8.5-10.1); CHLORIDE 102 MMOL/L (99-107); CREATININE 1.17 MG/DL (0.60-1.10); GLUCOSE 169 MG/DL (70-104); POTASSIUM 4.7 MMOL/L (3.5-5.1); SODIUM 134 MMOL/L (135-145); TOTAL CARBON DIOXIDE 24.5 MMOL/L (24-32); eGFR 66 ML/MIN
[2022-03-20] MEDS: normal saline 1000ml 1,000 ML IV SCH (08:25)
[2022-03-20] MEDS: ketorolac tromethamine 15mg/ml inj. IV SCH ×2 (08:43→15:38)
[2022-03-20] MEDS: piperacillin/tazo 4.5gm/100ml 100 ML IV SCH ×2 (08:43→15:38)
[2022-03-20] MEDS: enoxaparin 40mg/0.4ml syringe SQ SCH (08:43)
[2022-03-20 11:00] VITALS: BP 106/66
[2022-03-20 18:00] VITALS: BP 108/69
--- NOTE | 2022-03-20 18:41 | NUR ---
Patient in room [facility] 344. I have received report from Mey SANCHEZ and had the opportunity to ask questions and assume patient care.
--- NOTE | 2022-03-20 18:44 | NUR ---
Problems reprioritized. Patient report given, questions answered & plan of care reviewed with Jessi MEEKS.
--- NOTE | 2022-03-20 19:00 | NUR ---
Patient drank broth, apple juice, icy and ate jello. Addendum: 03/21/22 at 0105 by Jessi Luna RN Amended: Links added.
[2022-03-20 22:00] VITALS: BP 117/77
[2022-03-21] MEDS: ketorolac tromethamine 15mg/ml inj. IV SCH ×3 (00:07→16:28)
[2022-03-21] MEDS: piperacillin/tazo 4.5gm/100ml 100 ML IV SCH ×3 (00:07→16:28)
[2022-03-21] MEDS: HYDROmorph/NS 0.2 mg/ml PCA 100 ML IV SCH ×7 (01:00→12:52)
[2022-03-21] MEDS: potassium CL 20mEq in D5-1/2NS 1,000 ML IV SCH ×2 (04:33→12:43)
[2022-03-21 05:00] VITALS: BP 120/95
[2022-03-21 06:28] LABS: BASOPHILS % (AUTO) 0.2 % (0-1); EOSINOPHILS # (AUTO) 0.3 X10'3 (0-0.9); EOSINOPHILS % (AUTO) 2.6 % (0-6); HEMATOCRIT 35.7 % (42.0-52.0); HEMOGLOBIN 11.9 g/dl (14.0-17.9); LYMPHOCYTES % (AUTO) 30.6 % (21-51); MEAN CORPUSCULAR HEMOGLOBIN 30.1 PG (27.0-31.0); MEAN CORPUSCULAR HGB CONC 33.3 g/dL (33.0-36.5); MEAN CORPUSCULAR VOLUME 90.4 FL (78-98); MEAN PLATELET VOLUME 7.5 FL (7.4-10.4); MONOCYTES # (AUTO) 0.7 X10'3 (0-0.9); MONOCYTES % (AUTO) 7.6 % (2-12); NEUTROPHILS # (AUTO) 5.8 X10'3 (1.8-7.7); PLATELET COUNT 271 X10'3 (140-440); RED BLOOD COUNT 3.95 X10'6 (4.70-6.10); RED CELL DISTRIBUTION WIDTH 14.5 % (11.5-14.5); WHITE BLOOD COUNT 9.8 X10'3 (4.5-11.0)
[2022-03-21 06:29] LABS: ALBUMIN 2.8 G/DL (3.4-5.0); ANION GAP 7 (8-16); BLOOD UREA NITROGEN 15 MG/DL (7-18); BUN/CREATININE RATIO 12.3 (5.4-32.0); CALCIUM 7.5 MG/DL (8.5-10.1); CHLORIDE 105 MMOL/L (99-107); CREATININE 1.22 MG/DL (0.60-1.10); GLUCOSE 107 MG/DL (70-104); POTASSIUM 4.1 MMOL/L (3.5-5.1); SODIUM 137 MMOL/L (135-145); TOTAL CARBON DIOXIDE 25.5 MMOL/L (24-32); eGFR 63 ML/MIN
--- NOTE | 2022-03-21 06:47 | NUR ---
Patient in room [facility] 344. I have received report from Jessi and had the opportunity to ask questions and assume patient care.
--- NOTE | 2022-03-21 06:50 | NUR ---
Problems reprioritized. Patient report given, questions answered & plan of care reviewed with Vale MEEKS.
[2022-03-21] MEDS: albuterol 2.5 MG/3 ML nebule NEB SCH ×4 (07:10→19:56)
[2022-03-21] MEDS: enoxaparin 40mg/0.4ml syringe SQ SCH (08:11)
[2022-03-21 11:00] VITALS: BP 119/81
[2022-03-21] MEDS ORDERED: oxyCODONE/APAP 5-325mg tablet PO PRN (15:40)
[2022-03-21] MEDS ORDERED: PCA WASTE DOCUMENTATION MC ONE (16:05)
[2022-03-21 18:00] VITALS: BP 109/73
--- NOTE | 2022-03-21 18:16 | NUR ---
Problems reprioritized. Patient report given, questions answered & plan of care reviewed with Prudence.
--- NOTE | 2022-03-21 18:35 | NUR ---
Patient in room [facility] 344. I have received report from HUSSEIN Baker RN and had the opportunity to ask questions and assume patient care.
[2022-03-21] MEDS: acetaminophen 325mg tablet PO SCH (20:38)
[2022-03-21 22:00] VITALS: BP 127/77
[2022-03-22] MEDS: ketorolac tromethamine 15mg/ml inj. IV SCH ×2 (00:49→08:12)
[2022-03-22] MEDS: piperacillin/tazo 4.5gm/100ml 100 ML IV SCH ×2 (00:49→08:11)
[2022-03-22] MEDS: acetaminophen 325mg tablet PO SCH ×2 (02:00→08:12)
--- NOTE | 2022-03-22 06:46 | NUR ---
Patient in room [facility]. I have received report from Toya MEEKS and had the opportunity to ask questions and assume patient care.
[2022-03-22 07:05] LABS: BASOPHILS % (AUTO) 0.4 % (0-1); EOSINOPHILS # (AUTO) 0.4 X10'3 (0-0.9); EOSINOPHILS % (AUTO) 4.5 % (0-6); HEMOGLOBIN 12.2 g/dl (14.0-17.9); LYMPHOCYTES # (AUTO) 2.6 X10'3 (1.1-4.8); LYMPHOCYTES % (AUTO) 29.6 % (21-51); MEAN CORPUSCULAR HEMOGLOBIN 29.2 PG (27.0-31.0); MEAN CORPUSCULAR HGB CONC 32.3 g/dL (33.0-36.5); MEAN CORPUSCULAR VOLUME 90.6 FL (78-98); MEAN PLATELET VOLUME 7.7 FL (7.4-10.4); MONOCYTES # (AUTO) 0.7 X10'3 (0-0.9); MONOCYTES % (AUTO) 7.5 % (2-12); PLATELET COUNT 269 X10'3 (140-440); RED BLOOD COUNT 4.19 X10'6 (4.70-6.10); RED CELL DISTRIBUTION WIDTH 14.3 % (11.5-14.5); WHITE BLOOD COUNT 8.6 X10'3 (4.5-11.0)
[2022-03-22 07:15] LABS: ALBUMIN 2.7 G/DL (3.4-5.0); ANION GAP 5 (8-16); BLOOD UREA NITROGEN 13 MG/DL (7-18); BUN/CREATININE RATIO 12.7 (5.4-32.0); CALCIUM 8.2 MG/DL (8.5-10.1); CHLORIDE 106 MMOL/L (99-107); CREATININE 1.02 MG/DL (0.60-1.10); GLUCOSE 88 MG/DL (70-104); POTASSIUM 4.5 MMOL/L (3.5-5.1); SODIUM 138 MMOL/L (135-145); TOTAL CARBON DIOXIDE 26.8 MMOL/L (24-32); eGFR 78 ML/MIN
[2022-03-22] MEDS: albuterol 2.5 MG/3 ML nebule NEB SCH ×3 (07:43→14:27)
[2022-03-22] MEDS: enoxaparin 40mg/0.4ml syringe SQ SCH (08:12)
[2022-03-22 10:00] VITALS: BP 135/94
[2022-03-22] MEDS ORDERED: PER5325T PO (15:28)
[2022-03-22] MEDS ORDERED: AMOX-117 PO (15:28)
--- NOTE | 2022-03-22 16:27 | NUR ---
patient reported he had two BM diet advanced to reguylar which patient tolerated well. up and about. Dr elizabeth contacted. patient ok to DC. Education given to patient with regards rich care, and follow up with Dr elizabeth Mar 29. All Dc instructions given to patient. patient discharged to own car, to drive himself home in stable condition.
== END 2022-03-22 16:15 | disposition home or self-care (01) | DRG 447 ==
LOC: PAS IN 05:29 → SUR 3N 20:05
PROVIDERS: ADMIT Surgery; ATTEND Surgery
PROC: 0DBN4ZZ Excision of Sigmoid Colon, Percutaneous Endoscopic Approach (ICD-10-PCS; 2022-03-19)
PROC: 8E0W4CZ Robotic Assisted Procedure of Trunk Region, Percutaneous Endoscopic Approach (ICD-10-PCS; 2022-03-19)
PROC: 0DNN4ZZ Release Sigmoid Colon, Percutaneous Endoscopic Approach (ICD-10-PCS; 2022-03-19)
PROC: B4151ZZ Fluoroscopy of Inferior Mesenteric Artery using Low Osmolar Contrast (ICD-10-PCS; 2022-03-19)
PROC: B4141ZZ Fluoroscopy of Superior Mesenteric Artery using Low Osmolar Contrast (ICD-10-PCS; 2022-03-19)
PROC: 0DJD8ZZ Inspection of Lower Intestinal Tract, Via Natural or Artificial Opening Endoscopic (ICD-10-PCS; 2022-03-19)
PROC: 0DN84ZZ Release Small Intestine, Percutaneous Endoscopic Approach (ICD-10-PCS; principal; 2022-03-19 14:21)
DX: N32.1 Vesicointestinal fistula (principal); K57.32 Diverticulitis of large intestine without perforation or abscess without bleeding; K64.8 Other hemorrhoids; K66.0 Peritoneal adhesions (postprocedural) (postinfection)
CPT/HCPCS: 36415; 45330; 80048; 80053; 81001; 82948; 85025; 87081; 87088; 93005; 94640; 94760; 99152; 99153; A4215; A4618; A4620; A5200; A7000; C1758; G0378; J0690; J1100; J1170; J1650; J1885; J2250; J2405; J2543; J2704; J2710; J3010; J3480; J3490; J7030; J7060; J7120; S0020

== ENCOUNTER 2022-04-02 08:41 | Inpatient (IN) | payer MEDICAID ==
[~2022-04-02] VITALS: Ht 165.1 cm; Wt 70.5 kg
[2022-04-02] VITALS (7 sets, daily range): BP systolic 125–150; BP diastolic 75–101
[2022-04-02] MEDS: normal saline 1000ml 1,000 ML IV SCH ×2 (00:30→12:50)
[~2022-04-02 08:41] MED LIST changes: +AMOX-117 PO; +PER5325T PO; -ringers solution, lacted 1,000 ML IV SCH
[2022-04-02 10:10] LABS: BASOPHILS # (AUTO) 0.1 X10'3 (0-0.2); BASOPHILS % (AUTO) 0.5 % (0-1); EOSINOPHILS # (AUTO) 0.5 X10'3 (0-0.9); EOSINOPHILS % (AUTO) 3.3 % (0-6); HEMATOCRIT 42.7 % (42.0-52.0); HEMOGLOBIN 14.4 g/dl (14.0-17.9); LYMPHOCYTES # (AUTO) 2.2 X10'3 (1.1-4.8); LYMPHOCYTES % (AUTO) 13.8 % (21-51); MEAN CORPUSCULAR HEMOGLOBIN 29.7 PG (27.0-31.0); MEAN CORPUSCULAR HGB CONC 33.7 g/dL (33.0-36.5); MEAN PLATELET VOLUME 7.3 FL (7.4-10.4); MONOCYTES # (AUTO) 1.2 X10'3 (0-0.9); MONOCYTES % (AUTO) 7.5 % (2-12); NEUTROPHILS # (AUTO) 11.8 X10'3 (1.8-7.7); NEUTROPHILS % (AUTO) 74.9 % (42-75); PLATELET COUNT 549 X10'3 (140-440); RED BLOOD COUNT 4.85 X10'6 (4.70-6.10); RED CELL DISTRIBUTION WIDTH 14.2 % (11.5-14.5); WHITE BLOOD COUNT 15.7 X10'3 (4.5-11.0)
[2022-04-02 10:20] LABS: ALANINE AMINOTRANSFERASE 26 U/L (12-78); ALBUMIN 2.7 G/DL (3.4-5.0); ALBUMIN/GLOBULIN RATIO 0.5 (1.1-1.5); ALKALINE PHOSPHATASE 138 IU/L (46-116); ANION GAP 10 (8-16); ASPARTATE AMINO TRANSFERASE 14 U/L (10-37); BILIRUBIN,TOTAL 0.3 MG/DL (0.1-1.0); BLOOD UREA NITROGEN 19 MG/DL (7-18); BUN/CREATININE RATIO 20.4 (5.4-32.0); CALCIUM 9.5 MG/DL (8.5-10.1); CHLORIDE 99 MMOL/L (99-107); CREATININE 0.93 MG/DL (0.60-1.10); GLUCOSE 116 MG/DL (70-104); POTASSIUM 4.2 MMOL/L (3.5-5.1); SODIUM 137 MMOL/L (135-145); TOTAL PROTEIN 7.8 G/DL (6.4-8.2); eGFR 86 ML/MIN
[2022-04-02] MEDS ORDERED: normal saline 1000ML IV soln IVB ONE (10:30)
[2022-04-02] MEDS ORDERED: iohexol 300mg/ml 100ml inj. ONE (10:52)
[2022-04-02] MEDS ORDERED: piperacillin/tazo 3.375gm/50ml 50 ML IV ONE (12:00)
[2022-04-02] MEDS: diatr meglu/diatrizoate 30ml oral sol.-(3 dose) bottle PO SCH ×3 (12:30→14:00)
[2022-04-02] MEDS ORDERED: potassium Cl 40MEQ/1/2NS 520ml 520 ML IV PRN (12:50)
[2022-04-02] MEDS ORDERED: ondansetron/PF 4mg/2ml inj IV PRN ×3 (12:50→22:45)
[2022-04-02] MEDS ORDERED: acetaminophen 325mg tablet PO PRN ×2 (12:50)
[2022-04-02] MEDS ORDERED: morphine 2 MG/ML inj. syringe IV PRN ×2 (12:50→20:05)
[2022-04-02] MEDS ORDERED: magnesium 4gm in 100ml NS 100 ML IV PRN (12:50)
[2022-04-02] MEDS ORDERED: potassium Cl 20 mEq SR tablet PO PRN ×2 (12:50)
[2022-04-02] MEDS ORDERED: magnesium Cl slow-release 64mg tablet PO PRN (12:50)
[2022-04-02] MEDS ORDERED: HYDROcodone/acetaminophen 5mg/325mg tablet PO PRN (12:50)
[2022-04-02] MEDS ORDERED: diatr meglu/diatrizoate 30ml oral sol.-(3 dose) bottle ONE (13:05)
[2022-04-02 13:28] LABS: CLARITY,URINE CLEAR (Clear); COLOR,URINE YELLOW (Yellow); GLUCOSE, URINE NEGATIVE (Neg); KETONES,URINE 15 mg/dl (Neg); LEUKOCYTE ESTERASE ,URINE NEGATIVE (Neg); NITRITES, URINE NEGATIVE (Neg); OCCULT BLOOD,URINE NEGATIVE (Neg); PROTEIN,URINE NEGATIVE (Neg); UROBILINOGEN,URINE 0.2 E.U/dL (0.2-1.0)
[2022-04-02 13:42] LABS: UA COLLECTION TYPE VOIDED
[2022-04-02 14:01] LABS: URINE AMPHETAMINE SCREEN POSITIVE (Neg); URINE BARBITUATE SCREEN NEGATIVE (Neg); URINE BENZODIAZEPINES SCREEN NEGATIVE (Neg); URINE CANNABINOID SCREEN NEGATIVE (Neg); URINE COCAINE SCREEN NEGATIVE (Neg); URINE METHADONE SCREEN NEGATIVE (Neg); URINE OPIATE SCREEN NEGATIVE (Neg); URINE PHENCYCLIDINE SCREEN NEGATIVE (Neg)
[2022-04-02] MEDS ORDERED: vancomycin 1,750 MG in NS 350ml IV soln IV ONE (14:15)
[2022-04-02] MEDS ORDERED: OXYC-145 PO (15:03)
[2022-04-02] MEDS ORDERED: piperacillin/tazo 3.375gm/50ml 50 ML IV SCH (16:00)
[2022-04-02] MEDS: piperacillin/tazo 3.375gm/50ml 50 ML IV SCH (20:00)
[2022-04-02] MEDS ORDERED: heparin, porcine 5000 units/ml vial SQ SCH (20:00)
[2022-04-02] MEDS ORDERED: sevoflurane 250ml liquid IH ONE (20:04)
[2022-04-02] MEDS ORDERED: neostigmine methylsulfate 1 MG/ML 10ml vial ONE (20:04)
[2022-04-02] MEDS ORDERED: glycopyrrolate 0.2mg/ml inj ONE (20:04)
[2022-04-02] MEDS ORDERED: hydrALAZINE 20mg/ml inj. IV PRN (20:05)
[2022-04-02] MEDS ORDERED: ringers solution, lacted 1,000 ML IV SCH (20:05)
[2022-04-02] MEDS ORDERED: acetaminophen 1,000mg/100ml IV 100 ML IV PRN (20:05)
[2022-04-02] MEDS ORDERED: labetalol 20mg/4ml (5mg/ml) syringe IV PRN (20:05)
[2022-04-02] MEDS ORDERED: ketorolac trometh. 30mg/ml inj. IV ONE (20:05)
[2022-04-02] MEDS ORDERED: proCHLORperazine 10 MG/2 ml inj IV PRN (20:05)
[2022-04-02] MEDS ORDERED: meperidine/PF 25mg/ml syringe IV PRN ×3 (20:05)
[2022-04-02] MEDS ORDERED: midazolam 1 mg/ML 2ml injection ONE (20:09)
[2022-04-02] MEDS ORDERED: propofol inj 20 ML IV ONE (20:21)
[2022-04-02] MEDS ORDERED: fentaNYL /PF 50mcg/ml 5ml ampule ONE (20:21)
[2022-04-02] MEDS ORDERED: LIDOcaine 2% (20mg/ml) 5ml vial ONE (20:21)
[2022-04-02] MEDS ORDERED: rocuronium 10mg/ml inj IV ONE ×2 (20:22→21:01)
[2022-04-02] MEDS ORDERED: ceFOXitin 1000 MG inj ONE ×2 (20:33)
[2022-04-02] MEDS ORDERED: ondansetron/PF 4mg/2ml inj ONE (20:33)
[2022-04-02] MEDS ORDERED: dexamethasone sod phosphate 4mg/ml inj. ONE (20:33)
[2022-04-02] MEDS ORDERED: temazepam 15mg capsule PO PRN (21:00)
[2022-04-02] MEDS ORDERED: BUPIVAcaine 0.5% inj/PF 30 ML ONE (21:29)
[2022-04-02] MEDS ORDERED: BUPIVACAINE liposomal/PF 13.3 MG/ML vial IM ONE (21:29)
[2022-04-02] MEDS ORDERED: albumin (Human) 5% 250ml 250 ML IV ONE ×2 (21:40)
[2022-04-02] MEDS ORDERED: morphine 10mg/ml inj. ONE (22:43)
[2022-04-02] MEDS ORDERED: sugammadex 200mg/2ml injection IV ONE (22:44)
[2022-04-02] MEDS ORDERED: naloxone 0.4 mg/ml inj IV PRN (22:45)
[2022-04-02] MEDS ORDERED: HYDROmorphone inj. 0.5 MG/0.5 ML DISP.SYRIN IV PRN (22:50)
--- NOTE | 2022-04-02 22:55 | NUR ---
PT ARRIVED TO RR VIA BED ACCOMPANIED BY DR WOODS- ANESTHESIA REPORT GIVEN, PT AWAKE, C/O PAIN AT ABD INCISION-NEW COLOSTOMY WITH BAG PRESENT-STOMA PINK, SMALL AMOUNT OF DRAINAGE IN BAG, PATTI ON RIGHT SIDE OF ABD WITH BLOODY DRAINAGE NOTED, LG ABD DRESSING MIDLINE, F/C PRESENT-DRAINING DARK YELLOW URINE, SCDS ON, NG IN RIGHT NARE-TO CONT SXN-NO OUTPUT PRESENTLY, 20G PIV LEFT A/C-LR RUNNING AT 100ML/HR.
[2022-04-02] MEDS: morphine 4 MG/ML inj SYRINge IV PRN ×2 (23:15→23:42)
[2022-04-03] VITALS (13 sets, daily range): BP systolic 114–145; BP diastolic 61–86
--- NOTE | 2022-04-03 | NUR ---
PT PAIN A BIT BETTER AFTER DEMEROL, MORPHINE, TYLENOL, AND TORADOL-VSS, WOUND DRSG-CDI, J/P WITH SXN INTACT, NO CHANGES TO COLOSTOMY SITE, PT ABLE TO ROLL FOR US AND CHANGE BEDDING FOR COMFORT AND TO MOVE PT UP IN BED-TOLERATED WELL, NG REMOVED-PER DR REYNOLDS ORDER TO REMOVE IF NO OUTPUT WHILE IN RR-PT TOLERATED WELL, REPORT CALLED TO DORON RN-ALL QUESTIONS ANSWERED, PT TAKEN WITH ALL BELONGINGS TO [id number] RN IN TO RECEIVE PT. BED LOW AND LOCKED, CALL LIGHT IN REACH.
[2022-04-03] MEDS ORDERED: vancomycin/NS 1 GM ADD-VANTAGE 250 ML IV SCH (03:00)
[2022-04-03] MEDS: piperacillin/tazo 3.375gm/50ml 50 ML IV SCH ×4 (04:00→21:53)
[2022-04-03] MEDS: vancomycin/NS 1 GM ADD-VANTAGE 250 ML IV SCH ×2 (05:30→16:28)
--- NOTE | 2022-04-03 06:35 | NUR ---
Patient in room [facility]. I have received report from CONSTANTINO Doran and had the opportunity to ask questions and assume patient care.
--- NOTE | 2022-04-03 06:45 | NUR ---
Problems reprioritized. Patient report given, questions answered & plan of care reviewed with CONSTANTINO ROBERTS.
[2022-04-03] MEDS: morphine 2 MG/ML inj. syringe IV PRN ×3 (06:54→16:32)
[2022-04-03 07:01] LABS: ALANINE AMINOTRANSFERASE 15 U/L (12-78); ALBUMIN 2.3 G/DL (3.4-5.0); ALBUMIN/GLOBULIN RATIO 0.6 (1.1-1.5); ALKALINE PHOSPHATASE 99 IU/L (46-116); ANION GAP 10 (8-16); ASPARTATE AMINO TRANSFERASE 19 U/L (10-37); BILIRUBIN,TOTAL 0.7 MG/DL (0.1-1.0); BLOOD UREA NITROGEN 18 MG/DL (7-18); BUN/CREATININE RATIO 19.1 (5.4-32.0); CHLORIDE 104 MMOL/L (99-107); CREATININE 0.94 MG/DL (0.60-1.10); GLUCOSE 144 MG/DL (70-104); POTASSIUM 4.5 MMOL/L (3.5-5.1); SODIUM 139 MMOL/L (135-145); TOTAL CARBON DIOXIDE 24.9 MMOL/L (24-32); TOTAL PROTEIN 6.4 G/DL (6.4-8.2); eGFR 85 ML/MIN
[2022-04-03 07:06] LABS: BASOPHILS % (AUTO) 0.1 % (0-1); EOSINOPHILS % (AUTO) 0.1 % (0-6); HEMATOCRIT 36.2 % (42.0-52.0); HEMOGLOBIN 12.3 g/dl (14.0-17.9); LYMPHOCYTES # (AUTO) 0.6 X10'3 (1.1-4.8); LYMPHOCYTES % (AUTO) 5.2 % (21-51); MEAN CORPUSCULAR HEMOGLOBIN 30.1 PG (27.0-31.0); MEAN CORPUSCULAR VOLUME 88.6 FL (78-98); MEAN PLATELET VOLUME 7.3 FL (7.4-10.4); MONOCYTES # (AUTO) 1.2 X10'3 (0-0.9); MONOCYTES % (AUTO) 9.8 % (2-12); NEUTROPHILS # (AUTO) 10.5 X10'3 (1.8-7.7); NEUTROPHILS % (AUTO) 84.8 % (42-75); PLATELET COUNT 477 X10'3 (140-440); RED BLOOD COUNT 4.09 X10'6 (4.70-6.10); WHITE BLOOD COUNT 12.4 X10'3 (4.5-11.0)
[2022-04-03] MEDS: normal saline 1000ml 1,000 ML IV SCH ×2 (08:50→18:50)
--- NOTE | 2022-04-03 12:57 | NUR ---
Patient c/o pain, distended abd. Patient had ice chips at bedside and stated he had been "sipping just a little and maybe an ice chip every hour." Educated patient that he is NPO and importance to rest bowel as he is colostomy post op and no flatus. Encouraged patient to ambulate and also NPO. Oral swabs given to patient d/t patient c/o dry mouth. Will continue to monitor.
[2022-04-03] MEDS: ketorolac trometh. 30mg/ml inj. IV PRN (14:16)
--- NOTE | 2022-04-03 18:35 | NUR ---
Problems reprioritized. Patient report given, questions answered & plan of care reviewed with CONSTANTINO Collazo.
[2022-04-03] MEDS: HYDROcodone/acetaminophen 10/325mg tab PO PRN (21:54)
[2022-04-04] MEDS: piperacillin/tazo 3.375gm/50ml 50 ML IV SCH ×3 (04:24→19:39)
[2022-04-04] MEDS ORDERED: VANCOMYCIN LEVEL IV ONE (04:30)
[2022-04-04] MEDS: normal saline 1000ml 1,000 ML IV SCH ×2 (04:50→19:40)
[2022-04-04 05:54] LABS: BASOPHILS # (AUTO) 0.1 X10'3 (0-0.2); BASOPHILS % (AUTO) 0.3 % (0-1); EOSINOPHILS # (AUTO) 0.6 X10'3 (0-0.9); EOSINOPHILS % (AUTO) 3.2 % (0-6); HEMOGLOBIN 11.1 g/dl (14.0-17.9); LYMPHOCYTES # (AUTO) 1.7 X10'3 (1.1-4.8); LYMPHOCYTES % (AUTO) 9.7 % (21-51); MEAN CORPUSCULAR HEMOGLOBIN 29.2 PG (27.0-31.0); MEAN CORPUSCULAR HGB CONC 32.7 g/dL (33.0-36.5); MEAN CORPUSCULAR VOLUME 89.2 FL (78-98); MEAN PLATELET VOLUME 7.3 FL (7.4-10.4); MONOCYTES # (AUTO) 1.9 X10'3 (0-0.9); MONOCYTES % (AUTO) 10.8 % (2-12); NEUTROPHILS # (AUTO) 13.4 X10'3 (1.8-7.7); PLATELET COUNT 431 X10'3 (140-440); RED CELL DISTRIBUTION WIDTH 14.4 % (11.5-14.5); WHITE BLOOD COUNT 17.7 X10'3 (4.5-11.0)
[2022-04-04 06:14] LABS: ALANINE AMINOTRANSFERASE 18 U/L (12-78); ALBUMIN 2.2 G/DL (3.4-5.0); ALBUMIN/GLOBULIN RATIO 0.6 (1.1-1.5); ALKALINE PHOSPHATASE 88 IU/L (46-116); ANION GAP 8 (8-16); ASPARTATE AMINO TRANSFERASE 19 U/L (10-37); BILIRUBIN,TOTAL 0.5 MG/DL (0.1-1.0); BLOOD UREA NITROGEN 24 MG/DL (7-18); CALCIUM 8.5 MG/DL (8.5-10.1); CHLORIDE 105 MMOL/L (99-107); CREATININE 1.85 MG/DL (0.60-1.10); GLUCOSE 119 MG/DL (70-104); POTASSIUM 4.1 MMOL/L (3.5-5.1); SODIUM 137 MMOL/L (135-145); TOTAL CARBON DIOXIDE 24.5 MMOL/L (24-32); TOTAL PROTEIN 6.1 G/DL (6.4-8.2); VANCOMYCIN,TROUGH 11.3 UG/ML (6.0-14.0); eGFR 39 ML/MIN
--- NOTE | 2022-04-04 06:27 | NUR ---
L hand blood cultures positive for Gram + rods. Pt already on vancomycin and zosyn. Day shift nurse aware and will pass along to day shift hospitalist.
--- NOTE | 2022-04-04 06:57 | NUR ---
Patient in room [facility]. I have received report from Vale Galindo Traveler and had the opportunity to ask questions and assume patient care.
--- NOTE | 2022-04-04 07:01 | NUR ---
Patient in room [facility]. I have received report from Vale MEEKS and had the opportunity to ask questions and assume patient care.
--- NOTE | 2022-04-04 07:09 | NUR ---
Spoke to pharmacist regarding pt's kidney fx and antibiotic doses. He will contact Mansi regarding change on it.
[2022-04-04] MEDS: linezolid 600mg/300ml PREMIX 300 ML IV SCH ×2 (08:26→19:39)
--- NOTE | 2022-04-04 11:03 | NUR ---
called Dr Busby and asked to advance pt to full liquids. He said yes. Pt passing gas and + BS.
[2022-04-04] MEDS: HYDROcodone/acetaminophen 10/325mg tab PO PRN (12:18)
--- NOTE | 2022-04-04 15:33 | NUR ---
PRESSURE ULCER EDUCATION: DEFINITION: A pressure ulcer is an area of skin that breaks down when you stay in one position too long. The constant pressure against the skin reduces the blood flow to that area and the affected tissue dies. CAUSES: "Being bedridden or in a wheelchair "Fragile skin "Having a chronic condition, such as diabetes or vascular disease "Inability to move certain parts of your body without assistance "Older age "Incontinence of urine or stool SYMPTOMS: "A reddened area that DOES NOT turn white when pressed on - this can be the beginning of a pressure ulcer "A blister, deep sore or a crater - these can be advanced pressure ulcers FIRST AID: "Relieve the pressure on this area "Keep the area clean and dry "Call your primary doctor if you see any of the above symptoms "DO NOT massage the area "DO NOT use a donut shaped or ring shaped pillow- these actually interfere with the blood flow and cause complications PREVENTION: "Check for pressure ulcers everyday "Change position at least every two hours to relieve pressure "Use items that help relieve pressure- pillows, sheepskin, foam padding, and powders. "Keep skin clean and dry "Eat healthy well balanced meals "Exercise daily IF YOU SEE ANY OF THESE SYMPTOMS WHILE IN THE HOSPITAL - TELL YOUR NURSE IMMEDIATELY. IF YOU SEE ANY OF THESE SYMPTOMS WHILE AT HOME OR HAVE ANY QUESTIONS OR CONCERNS ABOUT PRESSURE ULCERS - CALL YOUR PRIMARY DOCTOR IMMEDIATELY. Addendum: 04/04/22 at 1534 by Gali Choi RN Amended: Links added.
[2022-04-04 18:00] VITALS: BP 145/60
--- NOTE | 2022-04-04 18:11 | NUR ---
Problems reprioritized. Patient report given, questions answered & plan of care reviewed with Prudence RN.
--- NOTE | 2022-04-04 18:53 | NUR ---
Patient in room [facility] 345. I have received report from DULCE MEEKS and had the opportunity to ask questions and assume patient care.
[2022-04-04 22:00] VITALS: BP 119/84
[2022-04-05] MEDS: normal saline 1000ml 1,000 ML IV SCH ×3 (00:50→17:00)
[2022-04-05] MEDS: morphine 2 MG/ML inj. syringe IV PRN ×2 (02:25→20:26)
[2022-04-05] MEDS: piperacillin/tazo 3.375gm/50ml 50 ML IV SCH (04:05)
[2022-04-05 05:30] VITALS: BP 122/96
[2022-04-05 05:51] LABS: BASOPHILS # (AUTO) 0.1 X10'3 (0-0.2); BASOPHILS % (AUTO) 0.4 % (0-1); EOSINOPHILS # (AUTO) 1.1 X10'3 (0-0.9); EOSINOPHILS % (AUTO) 5.7 % (0-6); HEMATOCRIT 31.8 % (42.0-52.0); HEMOGLOBIN 10.3 g/dl (14.0-17.9); LYMPHOCYTES # (AUTO) 2.1 X10'3 (1.1-4.8); LYMPHOCYTES % (AUTO) 11.4 % (21-51); MEAN CORPUSCULAR HEMOGLOBIN 29.2 PG (27.0-31.0); MEAN CORPUSCULAR HGB CONC 32.5 g/dL (33.0-36.5); MEAN CORPUSCULAR VOLUME 89.6 FL (78-98); MEAN PLATELET VOLUME 7.5 FL (7.4-10.4); MONOCYTES # (AUTO) 1.2 X10'3 (0-0.9); MONOCYTES % (AUTO) 6.4 % (2-12); NEUTROPHILS # (AUTO) 14.4 X10'3 (1.8-7.7); NEUTROPHILS % (AUTO) 76.1 % (42-75); PLATELET COUNT 464 X10'3 (140-440); RED BLOOD COUNT 3.54 X10'6 (4.70-6.10); RED CELL DISTRIBUTION WIDTH 14.9 % (11.5-14.5); WHITE BLOOD COUNT 18.9 X10'3 (4.5-11.0)
[2022-04-05 06:03] LABS: ALANINE AMINOTRANSFERASE 19 U/L (12-78); ALBUMIN 1.9 G/DL (3.4-5.0); ALBUMIN/GLOBULIN RATIO 0.4 (1.1-1.5); ALKALINE PHOSPHATASE 110 IU/L (46-116); ANION GAP 10 (8-16); ASPARTATE AMINO TRANSFERASE 31 U/L (10-37); BILIRUBIN,TOTAL 0.5 MG/DL (0.1-1.0); BLOOD UREA NITROGEN 25 MG/DL (7-18); BUN/CREATININE RATIO 9.5 (5.4-32.0); CALCIUM 8.4 MG/DL (8.5-10.1); CHLORIDE 104 MMOL/L (99-107); CREATININE 2.64 MG/DL (0.60-1.10); GLUCOSE 107 MG/DL (70-104); POTASSIUM 3.9 MMOL/L (3.5-5.1); SODIUM 138 MMOL/L (135-145); TOTAL CARBON DIOXIDE 24.2 MMOL/L (24-32); TOTAL PROTEIN 6.2 G/DL (6.4-8.2); eGFR 26 ML/MIN
--- NOTE | 2022-04-05 06:10 | NUR ---
Patient in room [facility]. I have received report from CONSTANTINO Pittman and had the opportunity to ask questions and assume patient care.
--- NOTE | 2022-04-05 06:28 | NUR ---
Problems reprioritized. Patient report given, questions answered & plan of care reviewed with ARLEEN RN.
[2022-04-05] MEDS: ketorolac trometh. 30mg/ml inj. IV PRN (07:11)
[2022-04-05] MEDS: linezolid 600mg/300ml PREMIX 300 ML IV SCH ×2 (08:24→20:26)
[2022-04-05] MEDS: HYDROcodone/acetaminophen 10/325mg tab PO PRN ×3 (08:25→17:06)
[2022-04-05 10:00] VITALS: BP 131/91
[2022-04-05] MEDS: meropenem inj 1 GM in normal saline 100ml IV soln 100 ML IV SCH ×2 (12:15→20:26)
--- NOTE | 2022-04-05 13:52 | NUR ---
Noted pt POD #3 s/p small bowel resection, sigmoid colon resection, and colostomy formation. Currently receiving Linezolid. Pt seen at bedside for written and verbal colostomy and low tyramine nutrition therapy educations. Pt denies questions at this time. RD contact information provided and pt encouraged to reach out if needed. Pt endorses a good appetite and denies food allergies, food preferences, or difficulty chewing/swallowing. Pt states he's used to "gumming it" with his food and denies need for texture modification. Patient's diet has been advanced to regular from full liquids, d/w RN recommendation for diet change to low fiber in view of recent GI surgery. Will continue to follow. Addendum: 04/05/22 at [address] Amended: Links added.
--- NOTE | 2022-04-05 15:20 | NUR ---
OSTOMY FACTS: Almost everyone has know of, or met, businessmen, entertainers, athletes, and people from all walks of life who have an ostomy. Ostomates (a person that has an ostomy) can ski, ride horses, bowl, and get healthy exercise in countless ways. Your usual activities of daily living can be resumed as soon as you are able. Gradually you will be able to wear the clothes worn before surgery. With modern pouches, nothing is noticeable under your clothing. It may be difficult at first to believe that an intimate relationship can be possible when one's body has been disfigured by surgery. This is not true. Love, fortunately, is not easily destroyed when it is based on genuine appreciation of a person as a thinking, feeling, reacting human being. AN OSTOMY IS NOT AN IMPAIRMENT!! DEFINITIONS: 1.OSTOMY: An opening that is created by a surgical procedure. The opening is called a "stoma". 2.STOMA: A surgical opening in the abdomen (belly) where intestine is brought through the abdominal wall and connected at the skin level. A stoma is shiny, wet and at first is dark purple but eventually turns pink, similar to the inside lining of your mouth. 3.COLON: A portion of the large bowel. 4.COLOSTOMY: A fecal diversion with an opening, (stoma) created anywhere along the colon. Making a connection between the colon and the abdominal wall. 5.ILLEOSTOMY: A fecal diversion with an opening, (stoma) created in the small intestine. Making a connection between the small intestine and the abdominal wall. 6.UROSTOMY: A urinary diversion with the ureters connected to a segment of the small bowel and one end is brought out and connected to the abdominal wall, creating a stoma. SHAPES and SIZES: "The stoma is usually round or oval. "It is anywhere from a dime to half dollar in size. "A stoma reaches its permanent size 6-8 weeks after surgery. PRODUCTS: 1.POUCH or APPLIANCE: An external device to contain stool or urine output and protect the skin around the stoma. It can be a one piece pouch or two pieces (a pouch and a wafer). 2.BARRIER: Substance that is used to protect the skin around the stoma from drainage and adhesive. 3.SKIN PREP or SEALANT: Product applied to the skin to reduce injury from moisture, drainage, or repeated pouch removal. Available in spray or wipes. 4.CLOSURE or CLAMP: A device used to close the bottom of a drainable pouch. 5.BRIDGE or ERICK: A piece of plastic placed under a loop of bowel on the skins surface, to secure the bowel in place while the skin heals. POUCH CHANGE PROCEEDURE: 1.Assemble all the supplies "1 or 2 piece appliance "Ostomy paste (if needed) "Ostomy powder (if needed) "Skin prep wipes ( not recommended with coloplast products) "Moist wash cloth or cotton balls 2.Remove plastic center and paper backing from pouch. If pouch or wafer is not precut, use the sizing guide, or plastic backing from pouch to make a pattern. Do this by placing the paper over the stoma and trace it, or draw a pattern. Cut the wafer to fit and set it aside. 3.Remove old pouch by lifting up on tape while pressing skin down away from the tape. If there is a clip on your pouch, remove it and save it. 4.Clean skin or stoma with moistened wash cloth or cotton balls. Place a clean cotton ball over stoma hole to catch any drainage. Let skin dry. 5.For grooves or uneven areas in the skin- apply ostomy paste and sprinkle with ostomy powder, then gently shape the past so the area around the stoma is smooth and as flat as possible. Wipe off or blow away excess. Blot powder with skin prep wipe (DO NOT wipe powder). Let dry until no longer sticky. 6.For irritated or reddened skin- sprinkle ostomy powder on red or irritated area. Wipe off or blow away excess. Blot powder with skin prep wipe (DO NOT wipe powder). Let dry until no longer sticky. 7.Apply skin prep wipe to skin to which the pouch and tape will adhere. Let dry until no longer sticky. 8.If you have a one piece appliance- apply pouch so it is centered around the stoma. No skin should be exposed to stool. All skin should be covered by paste or pouch. 9.If you have a two piece appliance- Apply the wafer as described above, then snap or stick pouch onto wafer. Check to make sure wafer and pouch are securely connected. 10.Place clip on bottom of pouch. 11.Empty pouch when 1/3 full. OSTOMY SKIN CARE: "Good health care and nutrition are essential for healthy skin. "Usually a correct pouch size will prevent skin breakdown. "Use warm water and soap for skin cleansing. "Do not use creams or oil based products on skin around the stoma. This will prevent the appliance from sticking. "Use skin prep around the stoma. IT CAN TAKE 24 HOURS TO SEVERAL DAYS FOR SKIN TO HEAL. IF IT IS NOT RESOLVING, OR GETTING WORSE, CALL YOUR PRIMARY CARE DOCTOR. Addendum: 04/05/22 at 1521 by Gali Choi RN Amended: Links added.
[2022-04-05 18:00] VITALS: BP 135/85
--- NOTE | 2022-04-05 18:30 | NUR ---
Problems reprioritized. Patient report given, questions answered & plan of care reviewed with CONSTANTINO Pittman.
--- NOTE | 2022-04-05 18:31 | NUR ---
Patient in room [facility]. I have received report from ARLEEN MEEKS and had the opportunity to ask questions and assume patient care.
[2022-04-05 22:53] VITALS: BP 151/95
[2022-04-06] MEDS: normal saline 1000ml 1,000 ML IV SCH ×2 (03:55→17:45)
[2022-04-06 05:30] VITALS: BP 140/82
[2022-04-06] MEDS: HYDROcodone/acetaminophen 10/325mg tab PO PRN ×5 (05:51→22:24)
--- NOTE | 2022-04-06 06:15 | NUR ---
Patient in room [facility]. I have received report from CONSTANTINO Pittman and had the opportunity to ask questions and assume patient care.
--- NOTE | 2022-04-06 06:25 | NUR ---
Problems reprioritized. Patient report given, questions answered & plan of care reviewed with HUSSEIN MEEKS. Addendum: 04/06/22 at 0626 by Toya Soler RN REPORT GIVEN TO ARLEEN MEEKS.
[2022-04-06 06:43] LABS: ALANINE AMINOTRANSFERASE 31 U/L (12-78); ALBUMIN 1.8 G/DL (3.4-5.0); ALBUMIN/GLOBULIN RATIO 0.4 (1.1-1.5); ALKALINE PHOSPHATASE 139 IU/L (46-116); ANION GAP 8 (8-16); ASPARTATE AMINO TRANSFERASE 31 U/L (10-37); BILIRUBIN,TOTAL 0.2 MG/DL (0.1-1.0); BLOOD UREA NITROGEN 29 MG/DL (7-18); CALCIUM 8.7 MG/DL (8.5-10.1); CHLORIDE 106 MMOL/L (99-107); CREATININE 2.64 MG/DL (0.60-1.10); GLUCOSE 99 MG/DL (70-104); POTASSIUM 4.2 MMOL/L (3.5-5.1); SODIUM 139 MMOL/L (135-145); TOTAL CARBON DIOXIDE 25.1 MMOL/L (24-32); TOTAL PROTEIN 6.3 G/DL (6.4-8.2); eGFR 26 ML/MIN
[2022-04-06 06:46] LABS: BASOPHILS # (AUTO) 0.1 X10'3 (0-0.2); BASOPHILS % (AUTO) 0.3 % (0-1); EOSINOPHILS # (AUTO) 0.9 X10'3 (0-0.9); HEMATOCRIT 31.8 % (42.0-52.0); HEMOGLOBIN 10.5 g/dl (14.0-17.9); LYMPHOCYTES # (AUTO) 1.9 X10'3 (1.1-4.8); LYMPHOCYTES % (AUTO) 10.7 % (21-51); MEAN CORPUSCULAR HEMOGLOBIN 29.8 PG (27.0-31.0); MEAN CORPUSCULAR VOLUME 90.2 FL (78-98); MEAN PLATELET VOLUME 7.7 FL (7.4-10.4); MONOCYTES # (AUTO) 1.3 X10'3 (0-0.9); MONOCYTES % (AUTO) 7.3 % (2-12); NEUTROPHILS # (AUTO) 13.8 X10'3 (1.8-7.7); NEUTROPHILS % (AUTO) 76.7 % (42-75); PLATELET COUNT 519 X10'3 (140-440); RED BLOOD COUNT 3.52 X10'6 (4.70-6.10); RED CELL DISTRIBUTION WIDTH 14.7 % (11.5-14.5)
[2022-04-06] MEDS: meropenem inj 1 GM in normal saline 100ml IV soln 100 ML IV SCH ×2 (09:48→20:30)
[2022-04-06] MEDS: heparin, porcine 5000 units/ml vial SQ SCH ×2 (09:49→20:30)
[2022-04-06 10:00] VITALS: BP 144/97
[2022-04-06] MEDS: linezolid 600mg/300ml PREMIX 300 ML IV SCH ×2 (10:42→22:24)
[2022-04-06 17:30] VITALS: BP 152/86
[2022-04-06 22:00] VITALS: BP 145/88
[2022-04-07] MEDS: HYDROcodone/acetaminophen 10/325mg tab PO PRN ×4 (02:10→21:05)
[2022-04-07] MEDS: normal saline 1000ml 1,000 ML IV SCH ×3 (02:50→19:35)
[2022-04-07 06:00] VITALS: BP 161/90
[2022-04-07 06:47] LABS: BASOPHILS # (AUTO) 0.1 X10'3 (0-0.2); BASOPHILS % (AUTO) 0.8 % (0-1); EOSINOPHILS # (AUTO) 0.8 X10'3 (0-0.9); EOSINOPHILS % (AUTO) 4.7 % (0-6); HEMATOCRIT 33.7 % (42.0-52.0); HEMOGLOBIN 10.9 g/dl (14.0-17.9); LYMPHOCYTES # (AUTO) 2.1 X10'3 (1.1-4.8); LYMPHOCYTES % (AUTO) 13.2 % (21-51); MEAN CORPUSCULAR HGB CONC 32.4 g/dL (33.0-36.5); MEAN CORPUSCULAR VOLUME 89.5 FL (78-98); MEAN PLATELET VOLUME 7.7 FL (7.4-10.4); MONOCYTES # (AUTO) 1.3 X10'3 (0-0.9); NEUTROPHILS # (AUTO) 11.8 X10'3 (1.8-7.7); NEUTROPHILS % (AUTO) 73.3 % (42-75); PLATELET COUNT 542 X10'3 (140-440); RED BLOOD COUNT 3.76 X10'6 (4.70-6.10); RED CELL DISTRIBUTION WIDTH 14.8 % (11.5-14.5); WHITE BLOOD COUNT 16.1 X10'3 (4.5-11.0)
--- NOTE | 2022-04-07 07:00 | NUR ---
Patient in room [facility] 345. I have received report from Lolita MEEKS and had the opportunity to ask questions and assume patient care.
[2022-04-07 07:04] LABS: ALANINE AMINOTRANSFERASE 25 U/L (12-78); ALBUMIN 1.8 G/DL (3.4-5.0); ALBUMIN/GLOBULIN RATIO 0.4 (1.1-1.5); ALKALINE PHOSPHATASE 107 IU/L (46-116); ANION GAP 7 (8-16); ASPARTATE AMINO TRANSFERASE 25 U/L (10-37); BILIRUBIN,TOTAL 0.2 MG/DL (0.1-1.0); BLOOD UREA NITROGEN 29 MG/DL (7-18); BUN/CREATININE RATIO 12.4 (5.4-32.0); CHLORIDE 106 MMOL/L (99-107); CREATININE 2.33 MG/DL (0.60-1.10); GLUCOSE 94 MG/DL (70-104); POTASSIUM 4.1 MMOL/L (3.5-5.1); SODIUM 138 MMOL/L (135-145); TOTAL CARBON DIOXIDE 24.8 MMOL/L (24-32); TOTAL PROTEIN 6.4 G/DL (6.4-8.2); eGFR 30 ML/MIN
--- NOTE | 2022-04-07 07:07 | NUR ---
Received report from night nurse Lolita RN. Assumed care of patient.
[2022-04-07] MEDS: heparin, porcine 5000 units/ml vial SQ SCH ×2 (08:16→20:56)
[2022-04-07] MEDS: meropenem inj 1 GM in normal saline 100ml IV soln 100 ML IV SCH ×2 (08:46→19:39)
[2022-04-07] MEDS: linezolid 600mg/300ml PREMIX 300 ML IV SCH ×2 (08:46→20:55)
[2022-04-07 10:00] VITALS: BP 150/97
--- NOTE | 2022-04-07 11:46 | NUR ---
Initial: Pt admit DX sepsis secondary to peritonitis s/p OR for sigmoid resection and colostomy per EMR. Advanced to low residue diet 04/05 PO initially ~50% avg meals though regressed yesterday only drinking fluids per EMR; not meeting needs. KRISTEN recommends Ensure Plus High Protein TIDWM; notified. Two BM's 04/06 w/ no colostomy volume noted in EMR. Will monitor for further PO trends and nutrition intervention needs. Rec: 1. continue low-residue diet; encourage PO 2. Ensure Plus High Protein TIDWM; pending physician verification in EMR 3. bowel care per rx 4. scaled wt this admit; subsequent weekly wts Addendum: 04/07/22 at [address] Amended: Links added.
[2022-04-07] MEDS: LACTOSE-REDUCED FOOD 237ML LIQUID PO SCH ×2 (13:00→18:00)
--- NOTE | 2022-04-07 16:55 | NUR ---
patient refused lunch from us. Drinks all fluids given on tray. Family brings patient fast food for lunch and sometimes dinner. Education given to patient regarding risk and surgery complications. Addendum: 04/07/22 at 1658 by Mirtha Amor LVN Amended: Links added.
--- NOTE | 2022-04-07 17:12 | NUR ---
Student documentation: I have reviewed and agree with all interventions, assessments performed and documented by Mirtha SANCHEZ.
--- NOTE | 2022-04-07 18:36 | NUR ---
Report given to night nurse Facundo MEEKS. Patient in bed resting at this time. No acute changes this shift. All safety measures in place.
[2022-04-07 19:00] VITALS: BP 163/99
[2022-04-07 22:00] VITALS: BP 147/94
[2022-04-08] MEDS: HYDROcodone/acetaminophen 10/325mg tab PO PRN ×4 (00:50→21:13)
--- NOTE | 2022-04-08 06:23 | NUR ---
Patient in room [facility]. I have received report from MICHELLE MEEKS and had the opportunity to ask questions and assume patient care.
--- NOTE | 2022-04-08 06:24 | NUR ---
Problems reprioritized. Patient report given, questions answered & plan of care reviewed with Shaheen. Addendum: 04/08/22 at 0624 by Lloyd Pollock RN Amended: Links added.
--- NOTE | 2022-04-08 06:25 | NUR ---
Problems reprioritized. Patient report given, questions answered & plan of care reviewed with Shaheen. Addendum: 04/08/22 at 0625 by Lloyd Pollock RN Amended: Links added.
--- NOTE | 2022-04-08 06:33 | NUR ---
received report from night nurse Facundo MEEKS. Assumed care of patient. Patient resting at this time. Will resume care. All safety measures in place and call light in reach.
[2022-04-08 06:49] VITALS: BP 157/107
[2022-04-08] MEDS: heparin, porcine 5000 units/ml vial SQ SCH ×2 (07:21→20:55)
[2022-04-08] MEDS: linezolid 600mg tablet PO SCH ×2 (07:22→20:54)
[2022-04-08] MEDS: meropenem inj 1 GM in normal saline 100ml IV soln 100 ML IV SCH ×2 (07:30→20:54)
[2022-04-08] MEDS: LACTOSE-REDUCED FOOD 237ML LIQUID PO SCH ×3 (08:00→18:18)
[2022-04-08] MEDS: amLODIPine 5mg tablet PO SCH (10:47)
[2022-04-08 11:00] VITALS: BP 144/95
[2022-04-08 13:45] LABS: BASOPHILS # (AUTO) 0.1 X10'3 (0-0.2); EOSINOPHILS # (AUTO) 0.6 X10'3 (0-0.9); LYMPHOCYTES % (AUTO) 11.9 % (21-51); MEAN PLATELET VOLUME 7.3 FL (7.4-10.4)
[2022-04-08 13:47] LABS: BASOPHILS % (AUTO) 0.5 % (0-1); EOSINOPHILS % (AUTO) 3.1 % (0-6); HEMATOCRIT 40.2 % (42.0-52.0); HEMOGLOBIN 12.6 g/dl (14.0-17.9); LYMPHOCYTES # (AUTO) 2.3 X10'3 (1.1-4.8); MEAN CORPUSCULAR HEMOGLOBIN 28.9 PG (27.0-31.0); MEAN CORPUSCULAR HGB CONC 31.3 g/dL (33.0-36.5); MEAN CORPUSCULAR VOLUME 92.5 FL (78-98); MONOCYTES # (AUTO) 1.3 X10'3 (0-0.9); MONOCYTES % (AUTO) 6.6 % (2-12); NEUTROPHILS # (AUTO) 14.9 X10'3 (1.8-7.7); NEUTROPHILS % (AUTO) 77.9 % (42-75); PLATELET COUNT 582 X10'3 (140-440); RED BLOOD COUNT 4.35 X10'6 (4.70-6.10); RED CELL DISTRIBUTION WIDTH 15.9 % (11.5-14.5); WHITE BLOOD COUNT 19.1 X10'3 (4.5-11.0)
--- NOTE | 2022-04-08 15:31 | NUR ---
Patient care provided. Patient walked 300ft 2x. Wound care to ABD dressing CDI. [place] provided for pain with good relief.
[2022-04-08] MEDS: normal saline 1000ml 1,000 ML IV SCH ×2 (15:36→18:50)
[2022-04-08 16:19] LABS: ALBUMIN 1.9 G/DL (3.4-5.0); ANION GAP 8 (8-16); BLOOD UREA NITROGEN 25 MG/DL (7-18); BUN/CREATININE RATIO 12.2 (5.4-32.0); CALCIUM 9.2 MG/DL (8.5-10.1); CHLORIDE 106 MMOL/L (99-107); CREATININE 2.05 MG/DL (0.60-1.10); GLUCOSE 98 MG/DL (70-104); POTASSIUM 4.3 MMOL/L (3.5-5.1); SODIUM 141 MMOL/L (135-145); TOTAL CARBON DIOXIDE 27.3 MMOL/L (24-32); eGFR 35 ML/MIN
--- NOTE | 2022-04-08 17:24 | NUR ---
End of shift note. Colostomy care and wound care provided. Dressing to ABD CDI. Patients colostomy intact. Continues to produce gas and small amounts of watery stool. MD ordered CT to ABD contrast will start tonight. Bed bath given. All safety measures in place and call light in reach. Will report to Mihir MEEKS.
--- NOTE | 2022-04-08 17:53 | NUR ---
Student documentation: I have reviewed and agree with all interventions, assessments performed and documented by Mirtha MEEKS.
[2022-04-08 18:30] VITALS: BP 157/100
[2022-04-08] MEDS: diatr meglu/diatrizoate 30ml oral sol.-(3 dose) bottle PO SCH (21:11)
[2022-04-09] MEDS: normal saline 1000ml 1,000 ML IV SCH ×2 (01:35→15:46)
[2022-04-09] MEDS: HYDROcodone/acetaminophen 10/325mg tab PO PRN ×3 (01:35→23:15)
[2022-04-09 05:59] LABS: BASOPHILS # (AUTO) 0.1 X10'3 (0-0.2); BASOPHILS % (AUTO) 0.5 % (0-1); EOSINOPHILS # (AUTO) 0.7 X10'3 (0-0.9); EOSINOPHILS % (AUTO) 4.1 % (0-6); HEMATOCRIT 30.8 % (42.0-52.0); HEMOGLOBIN 10.4 g/dl (14.0-17.9); LYMPHOCYTES # (AUTO) 2.8 X10'3 (1.1-4.8); LYMPHOCYTES % (AUTO) 16.5 % (21-51); MEAN CORPUSCULAR HEMOGLOBIN 29.6 PG (27.0-31.0); MEAN CORPUSCULAR HGB CONC 33.9 g/dL (33.0-36.5); MEAN CORPUSCULAR VOLUME 87.3 FL (78-98); MEAN PLATELET VOLUME 7.1 FL (7.4-10.4); MONOCYTES # (AUTO) 1.2 X10'3 (0-0.9); MONOCYTES % (AUTO) 7.3 % (2-12); NEUTROPHILS # (AUTO) 12.2 X10'3 (1.8-7.7); NEUTROPHILS % (AUTO) 71.6 % (42-75); PLATELET COUNT 565 X10'3 (140-440); RED BLOOD COUNT 3.53 X10'6 (4.70-6.10); RED CELL DISTRIBUTION WIDTH 14.7 % (11.5-14.5)
[2022-04-09 06:00] VITALS: BP 140/82
--- NOTE | 2022-04-09 06:00 | NUR ---
Problems reprioritized. Patient report given, questions answered & plan of care reviewed with XAVIER. Addendum: 04/09/22 at 0639 by Lloyd Pollock RN Amended: Links added.
[2022-04-09 06:11] LABS: ALBUMIN 1.9 G/DL (3.4-5.0); ANION GAP 8 (8-16); BLOOD UREA NITROGEN 23 MG/DL (7-18); BUN/CREATININE RATIO 11.4 (5.4-32.0); CALCIUM 9.1 MG/DL (8.5-10.1); CHLORIDE 107 MMOL/L (99-107); CREATININE 2.02 MG/DL (0.60-1.10); GLUCOSE 100 MG/DL (70-104); POTASSIUM 4.5 MMOL/L (3.5-5.1); SODIUM 141 MMOL/L (135-145); TOTAL CARBON DIOXIDE 25.6 MMOL/L (24-32); eGFR 35 ML/MIN
--- NOTE | 2022-04-09 06:33 | NUR ---
Patient in room [facility]. I have received report from MICHELLE MEEKS and had the opportunity to ask questions and assume patient care.
[2022-04-09] MEDS: diatr meglu/diatrizoate 30ml oral sol.-(3 dose) bottle PO SCH ×2 (07:16→21:00)
[2022-04-09] MEDS: linezolid 600mg tablet PO SCH ×2 (07:34→21:26)
[2022-04-09] MEDS: amLODIPine 5mg tablet PO SCH (07:34)
[2022-04-09] MEDS: meropenem inj 1 GM in normal saline 100ml IV soln 100 ML IV SCH ×2 (07:36→21:25)
[2022-04-09] MEDS: LACTOSE-REDUCED FOOD 237ML LIQUID PO SCH ×3 (08:00→18:00)
[2022-04-09] MEDS: heparin, porcine 5000 units/ml vial SQ SCH ×2 (10:08→21:30)
[2022-04-09 11:00] VITALS: BP 142/86
--- NOTE | 2022-04-09 12:00 | NUR ---
Rec'd call from "Therese" from "[facility]" to report a 'critical finding' of "free air" from the CT of A&P on 04/09/22 at 1043 am. Therese reports "imporved size of collection" and "New right lower lobe air space disease, suspicious for aspiration or other pneumonia", as per Dr Ledesma at [phone]. CONSTANTINO Rucker and LAURA Shannon, notified.
--- NOTE | 2022-04-09 12:29 | NUR ---
critical finding per Luz Maria boyle see note above reported to Dr Ryder and DR Salinas Addendum: 04/09/22 at 1338 by Alka Beatty RN reported findings to Dr Enamorado,hospitalist for this patient
--- NOTE | 2022-04-09 17:25 | NUR ---
Patient resting comfortably at this time. Will report off to night nurse. All safety measures in place and call light in reach. Will continue to monitor.
[2022-04-09 18:00] VITALS: BP 159/88
--- NOTE | 2022-04-09 18:40 | NUR ---
Patient in room [facility]. I have received report from Mirtha SANCHEZ and Alka MEEKS and had the opportunity to ask questions and assume patient care.
--- NOTE | 2022-04-09 18:52 | NUR ---
patient had CT today see results. Dr Sears into see patient, ok to DC in am with oral ABX by Dr sullivan. wound changed still distal serous drainage . DR Sears aware. Ambulating in hallway. [place] given for pain with good results. i agree with charting done by Mirtha SANCHEZ. . Report given to Jessi MEEKS
[2022-04-09 22:00] VITALS: BP 114/78
[2022-04-09] MEDS ORDERED: ciprofloxacin 250mg tablet PO SCH (22:00)
[2022-04-09] MEDS: metroNIDAZOLE 500mg tablet PO SCH (23:10)
[2022-04-10] MEDS: normal saline 1000ml 1,000 ML IV SCH (01:57)
[2022-04-10 06:00] VITALS: BP 139/79
--- NOTE | 2022-04-10 06:10 | NUR ---
Patient in room [facility]. I have received report from Jessi MEEKS and had the opportunity to ask questions and assume patient care.
[2022-04-10 06:13] VITALS: BP 139/79
--- NOTE | 2022-04-10 07:00 | NUR ---
Problems reprioritized. Patient report given, questions answered & plan of care reviewed with Shadia CALLE.
--- NOTE | 2022-04-10 07:53 | NUR ---
PAGER ID: [phone] MESSAGE: [id number]-Taiwo Doherty.- patient is wanting to leave by 08:30. Are you ok with discharge? Patient states he will leave AMA if not. Pls advise? NICOLETTE Reno LVN [id number]
[2022-04-10 08:31] VITALS: BP_SYST 139
[2022-04-10] MEDS: metroNIDAZOLE 500mg tablet PO SCH (08:31)
[2022-04-10] MEDS: linezolid 600mg tablet PO SCH (08:31)
[2022-04-10] MEDS: amLODIPine 5mg tablet PO SCH (08:31)
[2022-04-10] MEDS: heparin, porcine 5000 units/ml vial SQ SCH (08:32)
--- NOTE | 2022-04-10 09:30 | NUR ---
patient decided to leave AMA. All risks were explained to him regarding him wanting to leave. Both MD and surgeon were notified.
--- NOTE | 2022-04-10 09:54 | NUR ---
Called Dr. Sears and advised him that this patient left AMA. Dr. Sears verbalized understanding
--- NOTE | 2022-04-10 13:28 | NUR ---
WOUND INFECTION EDUCATION PROVIDED BY WOUND CARE 1. Patient instructed to call their primary doctor, or go the ED immediately if any of the following symptoms occur: * Increased pain in wound * Increase in drainage from the wound * Redness in the skin surrounding the wound * Warmth in the skin surrounding the wound * Bleeding from the wound * Temperature of 101 or greater 2. If any of these occur while in the hospital tell a nurse immediately. OSTOMY FACTS: Almost everyone has know of, or met, businessmen, entertainers, athletes, and people from all walks of life who have an ostomy. Ostomates (a person that has an ostomy) can ski, ride horses, bowl, and get healthy exercise in countless ways. Your usual activities of daily living can be resumed as soon as you are able. Gradually you will be able to wear the clothes worn before surgery. With modern pouches, nothing is noticeable under your clothing. It may be difficult at first to believe that an intimate relationship can be possible when one's body has been disfigured by surgery. This is not true. Love, fortunately, is not easily destroyed when it is based on genuine appreciation of a person as a thinking, feeling, reacting human being. AN OSTOMY IS NOT AN IMPAIRMENT!! DEFINITIONS: 1.OSTOMY: An opening that is created by a surgical procedure. The opening is called a "stoma". 2.STOMA: A surgical opening in the abdomen (belly) where intestine is brought through the abdominal wall and connected at the skin level. A stoma is shiny, wet and at first is dark purple but eventually turns pink, similar to the inside lining of your mouth. 3.COLON: A portion of the large bowel. 4.COLOSTOMY: A fecal diversion with an opening, (stoma) created anywhere along the colon. Making a connection between the colon and the abdominal wall. 5.ILLEOSTOMY: A fecal diversion with an opening, (stoma) created in the small intestine. Making a connection between the small intestine and the abdominal wall. 6.UROSTOMY: A urinary diversion with the ureters connected to a segment of the small bowel and one end is brought out and connected to the abdominal wall, creating a stoma. SHAPES and SIZES: "The stoma is usually round or oval. "It is anywhere from a dime to half dollar in size. "A stoma reaches its permanent size 6-8 weeks after surgery. PRODUCTS: 1.POUCH or APPLIANCE: An external device to contain stool or urine output and protect the skin around the stoma. It can be a one piece pouch or two pieces (a pouch and a wafer). 2.BARRIER: Substance that is used to protect the skin around the stoma from drainage and adhesive. 3.SKIN PREP or SEALANT: Product applied to the skin to reduce injury from moisture, drainage, or repeated pouch removal. Available in spray or wipes. 4.CLOSURE or CLAMP: A device used to close the bottom of a drainable pouch. 5.BRIDGE or ERICK: A piece of plastic placed under a loop of bowel on the skins surface, to secure the bowel in place while the skin heals. POUCH CHANGE PROCEEDURE: 1.Assemble all the supplies "1 or 2 piece appliance "Ostomy paste (if needed) "Ostomy powder (if needed) "Skin prep wipes ( not recommended with coloplast products) "Moist wash cloth or cotton balls 2.Remove plastic center and paper backing from pouch. If pouch or wafer is not precut, use the sizing guide, or plastic backing from pouch to make a pattern. Do this by placing the paper over the stoma and trace it, or draw a pattern. Cut the wafer to fit and set it aside. 3.Remove old pouch by lifting up on tape while pressing skin down away from the tape. If there is a clip on your pouch, remove it and save it. 4.Clean skin or stoma with moistened wash cloth or cotton balls. Place a clean cotton ball over stoma hole to catch any drainage. Let skin dry. 5.For grooves or uneven areas in the skin- apply ostomy paste and sprinkle with ostomy powder, then gently shape the past so the area around the stoma is smooth and as flat as possible. Wipe off or blow away excess. Blot powder with skin prep wipe (DO NOT wipe powder). Let dry until no longer sticky. 6.For irritated or reddened skin- sprinkle ostomy powder on red or irritated area. Wipe off or blow away excess. Blot powder with skin prep wipe (DO NOT wipe powder). Let dry until no longer sticky. 7.Apply skin prep wipe to skin to which the pouch and tape will adhere. Let dry until no longer sticky. 8.If you have a one piece appliance- apply pouch so it is centered around the stoma. No skin should be exposed to stool. All skin should be covered by paste or pouch. 9.If you have a two piece appliance- Apply the wafer as described above, then snap or stick pouch onto wafer. Check to make sure wafer and pouch are securely connected. 10.Place clip on bottom of pouch. 11.Empty pouch when 1/3 full. OSTOMY SKIN CARE: "Good health care and nutrition are essential for healthy skin. "Usually a correct pouch size will prevent skin breakdown. "Use warm water and soap for skin cleansing. "Do not use creams or oil based products on skin around the stoma. This will prevent the appliance from sticking. "Use skin prep around the stoma. IT CAN TAKE 24 HOURS TO SEVERAL DAYS FOR SKIN TO HEAL. IF IT IS NOT RESOLVING, OR GETTING WORSE, CALL YOUR PRIMARY CARE DOCTOR. Addendum: 04/10/22 at 1329 by Mercedez Shay LVN Amended: Links added.
--- NOTE | 2022-04-10 15:30 | NUR ---
Dr. Enamorado called and asked that I call patient and remind him to pharmacy picking technician his antibiotic and to call Dr. Sears office [facility]. Patient verbalized understanding
[2022-04-10] MEDS ORDERED: LINE600T12 PO (15:53)
[2022-04-10] MEDS ORDERED: METR-159 PO (15:53)
[2022-04-10] MEDS ORDERED: CIPR250T4 PO (15:53)
== END 2022-04-10 09:30 | disposition left against medical advice (07) | DRG 710 ==
LOC: ER 08:41 → ED HOLD 12:52 → SUR 3N 04-03 00:15
PROVIDERS: ADMIT Internal Medicine; ATTEND Internal Medicine
PROC: 0D1M0Z4 Bypass Descending Colon to Cutaneous, Open Approach (ICD-10-PCS; 2022-04-02)
PROC: BW211ZZ Computerized Tomography (CT Scan) of Abdomen and Pelvis using Low Osmolar Contrast (ICD-10-PCS; 2022-04-02)
PROC: 3E0T3BZ Introduction of Anesthetic Agent into Peripheral Nerves and Plexi, Percutaneous Approach (ICD-10-PCS; 2022-04-02)
PROC: 3E0T33Z Introduction of Anti-inflammatory into Peripheral Nerves and Plexi, Percutaneous Approach (ICD-10-PCS; 2022-04-02)
PROC: 0DB80ZZ Excision of Small Intestine, Open Approach (ICD-10-PCS; principal; 2022-04-02 20:04)
DX: A41.9 Sepsis, unspecified organism (principal); N17.0 Acute kidney failure with tubular necrosis; K56.50 Intestinal adhesions [bands], unspecified as to partial versus complete obstruction; K65.9 Peritonitis, unspecified; J18.9 Pneumonia, unspecified organism; K57.20 Diverticulitis of large intestine with perforation and abscess without bleeding; B95.2 Enterococcus as the cause of diseases classified elsewhere; K91.89 Other postprocedural complications and disorders of digestive system; Z16.21 Resistance to vancomycin; B96.20 Unspecified Escherichia coli [E. coli] as the cause of diseases classified elsewhere; Z16.24 Resistance to multiple antibiotics; F12.90 Cannabis use, unspecified, uncomplicated; R79.89 Other specified abnormal findings of blood chemistry; D75.839 Thrombocytosis, unspecified; F17.210 Nicotine dependence, cigarettes, uncomplicated; Z53.29 Procedure and treatment not carried out because of patient's decision for other reasons; Z87.440 Personal history of urinary (tract) infections; Z71.6 Tobacco abuse counseling; Z88.5 Allergy status to narcotic agent; Z79.899 Other long term (current) drug therapy
CPT/HCPCS: 36415; 71045; 74018; 74176; 74177; 80048; 80053; 80202; 80305; 81003; 83605; 84145; 85025; 87015; 87040; 87070; 87075; 87076; 87077; 87081; 87185; 87186; 99285; A4421; A4615; A4618; A4649; A6212; A6213; A6253; A6407; A6449; A7000; C1758; C9290; G0378; J0131; J0694; J1100; J1644; J1885; J2020; J2175; J2185; J2250; J2270; J2274; J2405; J2543; J2704; J2710; J3010; J3370; J3490; J7030; J7040; J7120; P9045; Q9963; Q9967; S0020

== ENCOUNTER 2022-06-04 14:36 | Emergency (ER) | payer MEDICAID ==
[~2022-06-04] VITALS: Ht 165.1 cm; Wt 73.1 kg
[~2022-06-04 14:36] MED LIST changes: -AMOX-117 PO; -NO HOME MEDS; +OXYC-145 PO; -PER5325T PO
[2022-06-04 17:51] LABS: BASOPHILS % (AUTO) 0.4 % (0-1); EOSINOPHILS # (AUTO) 0.3 X10'3 (0-0.9); EOSINOPHILS % (AUTO) 1.9 % (0-6); HEMATOCRIT 35.3 % (42.0-52.0); HEMOGLOBIN 11.6 g/dl (14.0-17.9); LYMPHOCYTES # (AUTO) 5.1 X10'3 (1.1-4.8); LYMPHOCYTES % (AUTO) 37.9 % (21-51); MEAN CORPUSCULAR HGB CONC 32.9 g/dL (33.0-36.5); MEAN CORPUSCULAR VOLUME 82.2 FL (78-98); MEAN PLATELET VOLUME 6.5 FL (7.4-10.4); MONOCYTES # (AUTO) 1.1 X10'3 (0-0.9); MONOCYTES % (AUTO) 8.1 % (2-12); NEUTROPHILS % (AUTO) 51.7 % (42-75); PLATELET COUNT 536 X10'3 (140-440); RED BLOOD COUNT 4.29 X10'6 (4.70-6.10); RED CELL DISTRIBUTION WIDTH 18.1 % (11.5-14.5); WHITE BLOOD COUNT 13.5 X10'3 (4.5-11.0)
[2022-06-04 18:06] LABS: ALANINE AMINOTRANSFERASE 9 U/L (12-78); ALBUMIN/GLOBULIN RATIO 0.6 (1.1-1.5); ALKALINE PHOSPHATASE 103 IU/L (46-116); ANION GAP 10 (8-16); ASPARTATE AMINO TRANSFERASE 10 U/L (10-37); BILIRUBIN,TOTAL 0.3 MG/DL (0.1-1.0); BLOOD UREA NITROGEN 17 MG/DL (7-18); BUN/CREATININE RATIO 17.5 (10.0-20.0); CALCIUM 9.3 MG/DL (8.5-10.1); CHLORIDE 100 MMOL/L (99-107); CREATININE 0.97 MG/DL (0.60-1.10); GLUCOSE 102 MG/DL (70-104); MAGNESIUM 2.1 MG/DL (1.5-2.4); SODIUM 136 MMOL/L (135-145); TOTAL CARBON DIOXIDE 26.4 MMOL/L (24-32); TOTAL PROTEIN 8.4 G/DL (6.4-8.2); eGFR 82 ML/MIN
[2022-06-04] MEDS ORDERED: cephalexin 500mg capsule PO ONE (18:10)
[2022-06-04] MEDS ORDERED: CEPH-585 PO (18:12)
[2022-06-04 18:48] VITALS: BP 121/79
--- NOTE | 2022-06-04 19:27 | NUR ---
dressing applied to wound site.
== END 2022-06-04 19:29 | disposition home or self-care (01) ==
LOC: ER 14:36
DX: T81.30XA Disruption of wound, unspecified, initial encounter (principal); F17.200 Nicotine dependence, unspecified, uncomplicated; Z90.49 Acquired absence of other specified parts of digestive tract; Z79.899 Other long term (current) drug therapy
CPT/HCPCS: 36415; 80053; 83735; 84145; 85025; 99283; A6222

== ENCOUNTER 2022-07-11 05:22 | Day surgery (SDC) | payer MEDICAID ==
[2022-07-09 15:21] LABS: BASOPHILS % (AUTO) 0.4 % (0-1); EOSINOPHILS # (AUTO) 0.2 X10'3 (0-0.9); EOSINOPHILS % (AUTO) 2.1 % (0-6); LYMPHOCYTES # (AUTO) 5.1 X10'3 (1.1-4.8); LYMPHOCYTES % (AUTO) 43.5 % (21-51); MEAN CORPUSCULAR HEMOGLOBIN 27.7 PG (27.0-31.0); MEAN CORPUSCULAR HGB CONC 32.3 g/dL (33.0-36.5); MEAN CORPUSCULAR VOLUME 85.6 FL (78-98); MEAN PLATELET VOLUME 6.7 FL (7.4-10.4); MONOCYTES # (AUTO) 0.9 X10'3 (0-0.9); MONOCYTES % (AUTO) 7.7 % (2-12); NEUTROPHILS # (AUTO) 5.5 X10'3 (1.8-7.7); NEUTROPHILS % (AUTO) 46.3 % (42-75); PRE OP HEMATOCRIT 41.5 % (42.0-52.0); PRE OP HEMOGLOBIN 13.4 g/dL (14.0-17.9); PRE OP PLATELET COUNT 452 X10'3 (140-440); RED BLOOD COUNT 4.85 X10'6 (4.70-6.10); RED CELL DISTRIBUTION WIDTH 19.7 % (11.5-14.5)
[2022-07-09 15:32] LABS: ALBUMIN 3.5 G/DL (3.4-5.0); ALBUMIN/GLOBULIN RATIO 0.8 (1.1-1.5); ALKALINE PHOSPHATASE 141 IU/L (46-116); BLOOD UREA NITROGEN 16 MG/DL (7-18); BUN/CREATININE RATIO 17.8 (10.0-20.0); CALCIUM 8.8 MG/DL (8.5-10.1); CHLORIDE 103 MMOL/L (99-107); PRE OP ALT 19 U/L (30-65); PRE OP ANION GAP 7 (8-16); PRE OP AST 12 U/L (10-37); PRE OP BILIRUB, TOTAL 0.2 MG/DL (0.0-1.0); PRE OP GLUCOSE 90 MG/DL (70-104); PRE OP POTASSIUM 4.2 MMOL/L (3.4-5.1); PRE OP SODIUM 138 MMOL/L (135-145); TOTAL CARBON DIOXIDE 27.9 MMOL/L (24-32); TOTAL PROTEIN 7.9 G/DL (6.4-8.2); eGFR 90 ML/MIN
[2022-07-09 16:29] LABS: PLATELET ESTIMATE INCREASED
[2022-07-09 16:30] LABS: ANISOCYTOSIS 2+
[~2022-07-11] VITALS: Ht 165.1 cm; Wt 72.6 kg
[~2022-07-11 05:22] MED LIST changes: +MARIJUANA INH; -OXYC-145 PO; +PER5325T PO; +ringers solution, lacted 1,000 ML IV SCH
[2022-07-11] MEDS ORDERED: famotidine 20mg tablet PO ONE (05:30)
[2022-07-11] MEDS ORDERED: ceFOXitin 2GM-NS 100mL ADDvant 100 ML IV ONE (05:30)
[2022-07-11] MEDS ORDERED: fentaNYL/PF 50MCG/1 ML 2ML syringe ONE (06:45)
[2022-07-11] MEDS ORDERED: MIDAZolam 1 MG/ML 5ML VIAL ONE (06:45)
[2022-07-11 07:04] VITALS: BP 140/85
[2022-07-11 07:35] VITALS: BP 126/87
[2022-07-11 07:45] VITALS: BP 127/72
[2022-07-11 07:55] VITALS: BP 124/90
[2022-07-11 08:05] VITALS: BP 120/86
[2022-07-11] MEDS ORDERED: ondansetron/PF 4mg/2ml inj IV PRN (11:15)
[2022-07-11] MEDS ORDERED: PEG 3350/Na sulf,bicarb,Cl/KCl oral sol 4 liter bottle PO ONE (11:15)
[2022-07-11] MEDS ORDERED: MIDAZolam 1 MG/ML 5ML VIAL IV PRN (11:15)
[2022-07-11] MEDS ORDERED: naloxone 0.4 mg/ml inj IV PRN (11:15)
[2022-07-11] MEDS ORDERED: fentaNYL/PF 50MCG/1 ML 2ML syringe IV PRN (11:15)
[2022-07-11] MEDS ORDERED: oxyCODONE/APAP 5-325mg tablet PO PRN (11:20)
--- NOTE | 2022-07-11 11:57 | NUR ---
WOUND CONSULT NOT REQUIRED PER PAS UNIT- PATIENT WILL BE SEEN AT LATER DATE
[2022-07-11] MEDS ORDERED: metoclopramide 5 mg/ml inj IV SCH (14:00)
== END 2022-07-11 13:00 | disposition home or self-care (01) ==
LOC: PAS IN 05:22 → OR 05:22 → UNDOADMIN 05:22 → OR 11:57 → EDSTATUS 13:00
PROVIDERS: ATTEND Surgery
DX: Z43.3 Encounter for attention to colostomy (principal); K64.8 Other hemorrhoids; F17.210 Nicotine dependence, cigarettes, uncomplicated; Z72.89 Other problems related to lifestyle; Z90.49 Acquired absence of other specified parts of digestive tract; Z82.3 Family history of stroke; Z79.899 Other long term (current) drug therapy
CPT/HCPCS: 36415; 44388; 45330; 80053; 82948; 85025; 86885; 86900; 86901; 87081; 99152; J0694; J2250; J3010; J7030; J7120; Z7512; 45378; 85008; 99153; A4620

== ENCOUNTER 2022-07-12 06:43 | Day surgery (SDC) | payer MEDICAID ==
--- NOTE | 2022-07-11 05:30 | NUR ---
PLACED IV AND WAITING FOR GI LAB TO COME GET PATIENT. DOCTOR ANITA WILL DO A COLONOSCOPY TO CHECK FOR TAKEDOWN OPTION FOR THIS PATIENT.
--- NOTE | 2022-07-11 07:00 | NUR ---
RN FROM [facility] CAME TO GET PATIENT.
--- NOTE | 2022-07-11 08:00 | NUR ---
DR HOWARD HAS DECIDED TO CANCEL THIS PATIENT DUE TO A BAD PREP. WITH DC IV AND SEND PATIENT HOME. Addendum: 07/11/22 at 1434 by Debora Sims RN WILL DC IV / NOT WITH DC IV
--- NOTE | 2022-07-11 13:00 | NUR ---
DR HOWARD EDUCATED PATIENT ON RETURN INSTRUCTIONS AND I DC'D THE IV AND WHEELED THE PATIENT DOWN TO THE LOBBY AND WAITED FOR HIS RIDE. HIS RIDE PICKED HIM UP.
[~2022-07-12] VITALS: Ht 165.1 cm; Wt 76.4 kg
[~2022-07-12 06:43] MED LIST changes: -ringers solution, lacted 1,000 ML IV SCH
[2022-07-12 06:50] VITALS: BP 131/93
[2022-07-12] MEDS ORDERED: fentaNYL/PF 50MCG/1 ML 2ML syringe ONE (06:52)
[2022-07-12] MEDS ORDERED: MIDAZolam 1 MG/ML 5ML VIAL ONE (06:52)
[2022-07-12 08:00] VITALS: BP 134/85
[2022-07-12 08:10] VITALS: BP 143/80
[2022-07-12 08:20] VITALS: BP 141/88
[2022-07-12 08:30] VITALS: BP 151/75
[2022-07-16] MEDS ORDERED: morphine 4 MG/ML inj SYRINge IV PRN (10:05)
[2022-07-16] MEDS ORDERED: ringers solution, lacted 1,000 ML IV SCH (10:05)
[2022-07-16] MEDS ORDERED: proCHLORperazine 10 MG/2 ml inj IV PRN (10:05)
[2022-07-16] MEDS ORDERED: ondansetron/PF 4mg/2ml inj IV PRN (10:05)
[2022-07-16] MEDS ORDERED: meperidine/PF 25mg/ml syringe IV PRN ×3 (10:05)
[2022-07-16] MEDS ORDERED: morphine 2 MG/ML inj. syringe IV PRN (10:05)
== END 2022-07-12 09:12 | disposition home or self-care (01) ==
LOC: GI LAB 06:43
PROVIDERS: ATTEND Surgery
DX: Z43.3 Encounter for attention to colostomy (principal); K57.32 Diverticulitis of large intestine without perforation or abscess without bleeding; F17.210 Nicotine dependence, cigarettes, uncomplicated; F12.90 Cannabis use, unspecified, uncomplicated
CPT/HCPCS: 44388; 99152; 99153; J2250; J3010; J7030; Z7512; A4620

== ENCOUNTER 2022-07-16 10:08 | Inpatient (IN) | payer MEDICAID ==
[2022-07-16] VITALS (19 sets, daily range): BP systolic 109–135; BP diastolic 71–91
[~2022-07-16] VITALS: Ht 165.1 cm; Wt 75.2 kg
[~2022-07-16 10:08] MED LIST changes: +cefazolin 2gm/D5W 100mL 100 ML IV ONE; +famotidine 20mg tablet PO ONE; +ringers solution, lacted 1,000 ML IV SCH
[2022-07-16] MEDS ORDERED: LIDOcaine 1% 30ml preserv. free vial ONE (10:49)
[2022-07-16] MEDS ORDERED: BUPIVAcaine/PF 2.5 mg/ml (0.25%) 30ml vial ONE (10:49)
[2022-07-16] MEDS ORDERED: midazolam 1 mg/ML 2ml injection ONE (11:37)
[2022-07-16] MEDS ORDERED: fentaNYL /PF 50mcg/ml 5ml ampule ONE (11:37)
[2022-07-16] MEDS ORDERED: rocuronium 10mg/ml inj IV ONE ×2 (11:39→15:28)
[2022-07-16] MEDS ORDERED: LIDOcaine 2% (20mg/ml) 5ml vial ONE (11:39)
[2022-07-16] MEDS ORDERED: propofol inj 20 ML IV ONE (11:39)
[2022-07-16] MEDS ORDERED: neostigmine methylsulfate 1 MG/ML 10ml vial ONE (11:55)
[2022-07-16] MEDS ORDERED: sevoflurane 250ml liquid IH ONE (11:55)
[2022-07-16] MEDS ORDERED: glycopyrrolate 0.2mg/ml inj ONE (11:55)
[2022-07-16] MEDS ORDERED: dexamethasone sod phosphate 10mg/ml inj ONE (11:55)
[2022-07-16] MEDS ORDERED: acetaminophen 1,000mg/100ml IV 100 ML IV ONE (13:37)
[2022-07-16] MEDS ORDERED: ceFOXitin 1000 MG inj ONE (15:28)
[2022-07-16] MEDS ORDERED: morphine 10mg/ml inj. ONE (15:29)
[2022-07-16] MEDS ORDERED: ondansetron/PF 4mg/2ml inj ONE (17:07)
[2022-07-16] MEDS ORDERED: ondansetron/PF 4mg/2ml inj IV PRN ×2 (17:35→18:30)
[2022-07-16] MEDS ORDERED: naloxone 0.4 mg/ml inj IV PRN (17:35)
[2022-07-16] MEDS: normal saline 1000ml 1,000 ML IV SCH (17:35)
--- NOTE | 2022-07-16 17:47 | NUR ---
Received from OR via HOSPITAL BED , accompanied by Anesthesiologist and report given by RENETTA Anesthesiologist. PATIENT WAKING UP, NO S/S OF PAIN, V/S WNL, SCD ON , PIV 20G RIGHT FOREARM, GAUZE CLOSED C/D/I TO ABDOMEN. WILLIS CATHETER DRAINING CLEAR YELLOW URINE. COLOSTOMY SITE NOTED ON RIGHT LOWER QUADRANT IS MOIST AND PINK. Addendum: 07/16/22 at 1807 by Espinoza Rangel RN Amended: Links added.
[2022-07-16] MEDS ORDERED: meperidine/PF 25mg/ml syringe IV PRN ×3 (18:30)
[2022-07-16] MEDS ORDERED: morphine 2 MG/ML inj. syringe IV PRN (18:30)
[2022-07-16] MEDS ORDERED: HYDROmorphone/PF 0.2 MG/ML SYRINGE IV PRN ×2 (18:30)
[2022-07-16] MEDS ORDERED: ringers solution, lacted 1,000 ML IV SCH (18:30)
[2022-07-16] MEDS ORDERED: HYDROmorphone inj. 0.5 MG/0.5 ML DISP.SYRIN IM ONE (18:30)
[2022-07-16] MEDS ORDERED: morphine 4 MG/ML inj SYRINge IV PRN (18:30)
[2022-07-16] MEDS ORDERED: proCHLORperazine 10 MG/2 ml inj IV PRN (18:30)
[2022-07-16] MEDS: HYDROmorph/NS 0.2 mg/ml PCA 100 ML IV SCH ×3 (18:35→23:00)
--- NOTE | 2022-07-16 19:07 | NUR ---
PATIENT HAS MET ALL CRITERIA FOR TRANSFER TO ORTHO FLOOR. VSS. DRESSINGS INTACT. BED LOW, CALL LIGHT PRESENT AND 2 RAILS UP. RN PRESENT TO ACCEPT CARE OF PATIENT AND REPORT HAS BEEN CALLED. ALL QUESTIONS ANSWERED TO ACCEPTING RN. Addendum: 07/16/22 at 1918 by Espinoza Rangel RN Amended: Links added.
--- NOTE | 2022-07-16 19:14 | NUR ---
PT ARIRVED ON THE FLOOR FROM RECOVERY. VSS. SADATED. CALL LIGHT IN HAND. RECEIVED REPORT FROM CONSTANTINO LUCIO PRIOR TO PT'S ARRIVAL
[2022-07-16] MEDS: ringers solution, lacted 1,000 ML IV SCH (19:20)
[2022-07-16] MEDS: ceFOXitin inj 1,000 MG in normal saline 100ml IV soln 100 ML IV SCH (23:29)
[2022-07-17] MEDS: HYDROmorph/NS 0.2 mg/ml PCA 100 ML IV SCH ×11 (01:00→23:00)
[2022-07-17] MEDS: ringers solution, lacted 1,000 ML IV SCH ×5 (01:48→21:23)
[2022-07-17 02:00] VITALS: BP 104/69
--- NOTE | 2022-07-17 06:44 | NUR ---
Problems reprioritized. Patient report given, questions answered & plan of care reviewed with myranda Huff.
[2022-07-17 06:47] LABS: ALBUMIN 2.6 G/DL (3.4-5.0); ANION GAP 8 (8-16); BLOOD UREA NITROGEN 10 MG/DL (7-18); BUN/CREATININE RATIO 10.4 (10.0-20.0); CALCIUM 8.5 MG/DL (8.5-10.1); CHLORIDE 103 MMOL/L (99-107); CREATININE 0.96 MG/DL (0.60-1.10); GLUCOSE 130 MG/DL (70-104); POTASSIUM 4.6 MMOL/L (3.5-5.1); SODIUM 137 MMOL/L (135-145); TOTAL CARBON DIOXIDE 26.4 MMOL/L (24-32); eGFR 83 ML/MIN
[2022-07-17 06:48] LABS: BASOPHILS % (AUTO) 0 % (0-1); EOSINOPHILS % (AUTO) 0 % (0-6); HEMOGLOBIN 13.2 g/dl (14.0-17.9); LYMPHOCYTES # (AUTO) 2.5 X10'3 (1.1-4.8); LYMPHOCYTES % (AUTO) 12.9 % (21-51); MEAN CORPUSCULAR HEMOGLOBIN 27.8 PG (27.0-31.0); MEAN CORPUSCULAR HGB CONC 32.2 g/dL (33.0-36.5); MEAN CORPUSCULAR VOLUME 86.2 FL (78-98); MEAN PLATELET VOLUME 6.9 FL (7.4-10.4); MONOCYTES # (AUTO) 1.1 X10'3 (0-0.9); MONOCYTES % (AUTO) 5.7 % (2-12); NEUTROPHILS # (AUTO) 15.7 X10'3 (1.8-7.7); NEUTROPHILS % (AUTO) 81.4 % (42-75); PLATELET COUNT 411 X10'3 (140-440); RED BLOOD COUNT 4.75 X10'6 (4.70-6.10); RED CELL DISTRIBUTION WIDTH 19.1 % (11.5-14.5); WHITE BLOOD COUNT 19.3 X10'3 (4.5-11.0)
--- NOTE | 2022-07-17 06:52 | NUR ---
Patient in room ORTHO 4013. I have received report from CONSTANTINO Cummings and had the opportunity to ask questions and assume patient care.
[2022-07-17 06:56] VITALS: BP 107/70
[2022-07-17] MEDS: albuterol 2.5 MG/3 ML nebule NEB SCH ×4 (08:01→19:34)
[2022-07-17] MEDS: ceFOXitin inj 1,000 MG in normal saline 100ml IV soln 100 ML IV SCH (08:22)
[2022-07-17] MEDS: enoxaparin 40mg/0.4ml syringe SQ SCH (08:23)
--- NOTE | 2022-07-17 09:51 | NUR ---
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 I witnessed and cosigned the change w/ Italo Reis RN.
[2022-07-17 11:48] VITALS: BP 103/62
--- NOTE | 2022-07-17 14:52 | NUR ---
Charting by eSrgio ANDREWS reviewed by Angela Gibbons RN
--- NOTE | 2022-07-17 15:58 | NUR ---
The following was taken from the patients H&P: This 51 yr. old male came to this hospital for a planned colostomy takedown resulting in bowel resection and placement of new loop ileostomy secondary to complication R/T severe diverticulitis. He has a medical history of diverticulitis with colostomy placement, urinary issues and carpal tunnel. He reports daily tobacco use. He denies the use of alcohol and illicit drugs. There have been no studies performed so far this admission. His most recent labs show a WBC of 19.3, HGB 13.2, BUN 10, BG 130 and an albumin of 2.6. He remains admitted for post-operative care per progress notes. Wound care in for evaluation of new ileostomy site per nursing consult request. The pt. was found lying in bed. Greeted and explained the intent. He appears to be A/O x4. He requests that care be done at a latera time since he is experiencing a lot of pain this post-operative day one. He allowed visualization of his ABD. The RUQ ileostomy appliance is intact, pale red stoma seen through clear appliance with bridge noted. There is a CDI dressing to the left ABD. Educational materials provided concerning the ileostomy. Plan follow-up on 07/18/22 for total body assessment/wound care. Bed in lowest position, call light/personal items in reach. Report was given to the primary nurse.
[2022-07-17 18:00] VITALS: BP 103/70
--- NOTE | 2022-07-17 18:08 | NUR ---
Problems reprioritized. Patient report given, questions answered & plan of care reviewed with CONSTANTINO Pittman.
--- NOTE | 2022-07-17 18:58 | NUR ---
Patient in room ORTHO 4013. I have received report from ARMANDO MEEKS and had the opportunity to ask questions and assume patient care.
[2022-07-17 22:00] VITALS: BP 115/78
[2022-07-18] MEDS: HYDROmorph/NS 0.2 mg/ml PCA 100 ML IV SCH ×12 (01:00→23:00)
[2022-07-18] MEDS: ringers solution, lacted 1,000 ML IV SCH ×3 (04:12→19:36)
[2022-07-18 06:00] LABS: ALBUMIN 2.3 G/DL (3.4-5.0); ANION GAP 2 (8-16); BLOOD UREA NITROGEN 13 MG/DL (7-18); BUN/CREATININE RATIO 13.5 (10.0-20.0); CALCIUM 8.4 MG/DL (8.5-10.1); CHLORIDE 102 MMOL/L (99-107); CREATININE 0.96 MG/DL (0.60-1.10); GLUCOSE 105 MG/DL (70-104); POTASSIUM 4.3 MMOL/L (3.5-5.1); SODIUM 135 MMOL/L (135-145); TOTAL CARBON DIOXIDE 30.6 MMOL/L (24-32); eGFR 83 ML/MIN
[2022-07-18 06:12] LABS: BASOPHILS % (AUTO) 0.2 % (0-1); EOSINOPHILS # (AUTO) 0.2 X10'3 (0-0.9); EOSINOPHILS % (AUTO) 1.1 % (0-6); HEMATOCRIT 36.4 % (42.0-52.0); HEMOGLOBIN 12.1 g/dl (14.0-17.9); LYMPHOCYTES # (AUTO) 3.1 X10'3 (1.1-4.8); LYMPHOCYTES % (AUTO) 19.5 % (21-51); MEAN CORPUSCULAR HEMOGLOBIN 28.6 PG (27.0-31.0); MEAN CORPUSCULAR HGB CONC 33.3 g/dL (33.0-36.5); MEAN PLATELET VOLUME 7.1 FL (7.4-10.4); MONOCYTES # (AUTO) 1.1 X10'3 (0-0.9); MONOCYTES % (AUTO) 6.8 % (2-12); NEUTROPHILS # (AUTO) 11.4 X10'3 (1.8-7.7); NEUTROPHILS % (AUTO) 72.4 % (42-75); PLATELET COUNT 303 X10'3 (140-440); RED BLOOD COUNT 4.24 X10'6 (4.70-6.10); RED CELL DISTRIBUTION WIDTH 19.4 % (11.5-14.5); WHITE BLOOD COUNT 15.7 X10'3 (4.5-11.0)
--- NOTE | 2022-07-18 06:23 | NUR ---
Problems reprioritized. Patient report given, questions answered & plan of care reviewed with ARMANDO MEEKS.
--- NOTE | 2022-07-18 06:29 | NUR ---
Patient in room ORTHO 4013. I have received report from CONSTANTINO Pittman and had the opportunity to ask questions and assume patient care.
[2022-07-18 06:39] VITALS: BP 125/82
[2022-07-18] MEDS: enoxaparin 40mg/0.4ml syringe SQ SCH (07:45)
--- NOTE | 2022-07-18 07:50 | NUR ---
Hilary Villasenor RN give Dilaudid MANAGER HEAVY DUTY bolus of .5mg per order.
[2022-07-18] MEDS: albuterol 2.5 MG/3 ML nebule NEB SCH ×4 (08:13→19:45)
--- NOTE | 2022-07-18 09:19 | NUR ---
Patient up and ambulated 150ft then back to room in chair by window. Patient rating pain 4/10.
[2022-07-18] MEDS: PCA WASTE DOCUMENTATION 1 MG ML MC SCH (12:47)
--- NOTE | 2022-07-18 13:34 | NUR ---
OSTOMY FACTS: Almost everyone has know of, or met, businessmen, entertainers, athletes, and people from all walks of life who have an ostomy. Ostomates (a person that has an ostomy) can ski, ride horses, bowl, and get healthy exercise in countless ways. Your usual activities of daily living can be resumed as soon as you are able. Gradually you will be able to wear the clothes worn before surgery. With modern pouches, nothing is noticeable under your clothing. It may be difficult at first to believe that an intimate relationship can be possible when one's body has been disfigured by surgery. This is not true. Love, fortunately, is not easily destroyed when it is based on genuine appreciation of a person as a thinking, feeling, reacting human being. AN OSTOMY IS NOT AN IMPAIRMENT!! DEFINITIONS: 1.OSTOMY: An opening that is created by a surgical procedure. The opening is called a "stoma". 2.STOMA: A surgical opening in the abdomen (belly) where intestine is brought through the abdominal wall and connected at the skin level. A stoma is shiny, wet and at first is dark purple but eventually turns pink, similar to the inside lining of your mouth. 3.COLON: A portion of the large bowel. 4.COLOSTOMY: A fecal diversion with an opening, (stoma) created anywhere along the colon. Making a connection between the colon and the abdominal wall. 5.ILLEOSTOMY: A fecal diversion with an opening, (stoma) created in the small intestine. Making a connection between the small intestine and the abdominal wall. 6.UROSTOMY: A urinary diversion with the ureters connected to a segment of the small bowel and one end is brought out and connected to the abdominal wall, creating a stoma. SHAPES and SIZES: "The stoma is usually round or oval. "It is anywhere from a dime to half dollar in size. "A stoma reaches its permanent size 6-8 weeks after surgery. PRODUCTS: 1.POUCH or APPLIANCE: An external device to contain stool or urine output and protect the skin around the stoma. It can be a one piece pouch or two pieces (a pouch and a wafer). 2.BARRIER: Substance that is used to protect the skin around the stoma from drainage and adhesive. 3.SKIN PREP or SEALANT: Product applied to the skin to reduce injury from moisture, drainage, or repeated pouch removal. Available in spray or wipes. 4.CLOSURE or CLAMP: A device used to close the bottom of a drainable pouch. 5.BRIDGE or ERICK: A piece of plastic placed under a loop of bowel on the skins surface, to secure the bowel in place while the skin heals. POUCH CHANGE PROCEEDURE: 1.Assemble all the supplies "1 or 2 piece appliance "Ostomy paste (if needed) "Ostomy powder (if needed) "Skin prep wipes ( not recommended with coloplast products) "Moist wash cloth or cotton balls 2.Remove plastic center and paper backing from pouch. If pouch or wafer is not precut, use the sizing guide, or plastic backing from pouch to make a pattern. Do this by placing the paper over the stoma and trace it, or draw a pattern. Cut the wafer to fit and set it aside. 3.Remove old pouch by lifting up on tape while pressing skin down away from the tape. If there is a clip on your pouch, remove it and save it. 4.Clean skin or stoma with moistened wash cloth or cotton balls. Place a clean cotton ball over stoma hole to catch any drainage. Let skin dry. 5.For grooves or uneven areas in the skin- apply ostomy paste and sprinkle with ostomy powder, then gently shape the past so the area around the stoma is smooth and as flat as possible. Wipe off or blow away excess. Blot powder with skin prep wipe (DO NOT wipe powder). Let dry until no longer sticky. 6.For irritated or reddened skin- sprinkle ostomy powder on red or irritated area. Wipe off or blow away excess. Blot powder with skin prep wipe (DO NOT wipe powder). Let dry until no longer sticky. 7.Apply skin prep wipe to skin to which the pouch and tape will adhere. Let dry until no longer sticky. 8.If you have a one piece appliance- apply pouch so it is centered around the stoma. No skin should be exposed to stool. All skin should be covered by paste or pouch. 9.If you have a two piece appliance- Apply the wafer as described above, then snap or stick pouch onto wafer. Check to make sure wafer and pouch are securely connected. 10.Place clip on bottom of pouch. 11.Empty pouch when 1/3 full. OSTOMY SKIN CARE: "Good health care and nutrition are essential for healthy skin. "Usually a correct pouch size will prevent skin breakdown. "Use warm water and soap for skin cleansing. "Do not use creams or oil based products on skin around the stoma. This will prevent the appliance from sticking. "Use skin prep around the stoma. IT CAN TAKE 24 HOURS TO SEVERAL DAYS FOR SKIN TO HEAL. IF IT IS NOT RESOLVING, OR GETTING WORSE, CALL YOUR PRIMARY CARE DOCTOR. Addendum: 07/18/22 at 1334 by Mercedez Shay LVN Amended: Links added.
[2022-07-18 14:50] VITALS: BP 127/84
--- NOTE | 2022-07-18 14:51 | NUR ---
DID VITAL SIGNS. CHARTED
[2022-07-18] MEDS: normal saline 1000ml 1,000 ML IV SCH (17:35)
[2022-07-18 18:00] VITALS: BP 121/76
--- NOTE | 2022-07-18 18:38 | NUR ---
Problems reprioritized. Patient report given, questions answered & plan of care reviewed with CONSTANTINO Ross.
--- NOTE | 2022-07-18 18:40 | NUR ---
Patient in room ORTHO 4013. I have received report from CONSTANTINO Metcalf and had the opportunity to ask questions and assume patient care.
[2022-07-18 22:00] VITALS: BP 141/87
[2022-07-19] MEDS: HYDROmorph/NS 0.2 mg/ml PCA 100 ML IV SCH ×12 (01:00→23:00)
[2022-07-19] MEDS: ringers solution, lacted 1,000 ML IV SCH ×3 (02:38→20:04)
--- NOTE | 2022-07-19 06:10 | NUR ---
Problems reprioritized. Patient report given, questions answered & plan of care reviewed with CONSTANTINO Webb.
--- NOTE | 2022-07-19 06:14 | NUR ---
reported to day shift. noted need for ambulation and shower this morning
--- NOTE | 2022-07-19 06:30 | NUR ---
Patient in room ORTHO 4013. I have received report from Vandana and had the opportunity to ask questions and assume patient care.
[2022-07-19 07:00] VITALS: BP 137/75
[2022-07-19 07:15] LABS: ALBUMIN 2.3 G/DL (3.4-5.0); ANION GAP 3 (8-16); BLOOD UREA NITROGEN 8 MG/DL (7-18); BUN/CREATININE RATIO 8.9 (10.0-20.0); CALCIUM 8.6 MG/DL (8.5-10.1); CHLORIDE 99 MMOL/L (99-107); GLUCOSE 95 MG/DL (70-104); POTASSIUM 4.3 MMOL/L (3.5-5.1); SODIUM 133 MMOL/L (135-145); TOTAL CARBON DIOXIDE 30.6 MMOL/L (24-32); eGFR 90 ML/MIN
[2022-07-19 07:20] LABS: EOSINOPHILS # (AUTO) 0.2 X10'3 (0-0.9); MONOCYTES # (AUTO) 0.9 X10'3 (0-0.9)
[2022-07-19 07:23] LABS: BASOPHILS % (AUTO) 0.2 % (0-1); EOSINOPHILS % (AUTO) 1.6 % (0-6); HEMATOCRIT 34.2 % (42.0-52.0); HEMOGLOBIN 11.4 g/dl (14.0-17.9); LYMPHOCYTES # (AUTO) 2.7 X10'3 (1.1-4.8); LYMPHOCYTES % (AUTO) 20.6 % (21-51); MEAN CORPUSCULAR HEMOGLOBIN 28.8 PG (27.0-31.0); MEAN CORPUSCULAR HGB CONC 33.4 g/dL (33.0-36.5); MEAN CORPUSCULAR VOLUME 86.1 FL (78-98); MEAN PLATELET VOLUME 7.4 FL (7.4-10.4); MONOCYTES % (AUTO) 6.7 % (2-12); NEUTROPHILS # (AUTO) 9.4 X10'3 (1.8-7.7); NEUTROPHILS % (AUTO) 70.9 % (42-75); PLATELET COUNT 308 X10'3 (140-440); RED BLOOD COUNT 3.97 X10'6 (4.70-6.10); RED CELL DISTRIBUTION WIDTH 19.3 % (11.5-14.5); WHITE BLOOD COUNT 13.2 X10'3 (4.5-11.0)
[2022-07-19] MEDS: enoxaparin 40mg/0.4ml syringe SQ SCH (07:45)
[2022-07-19] MEDS: albuterol 2.5 MG/3 ML nebule NEB SCH ×4 (07:59→19:10)
[2022-07-19 08:06] LABS: PLATELET ESTIMATE NORMAL
[2022-07-19 08:20] LABS: ANISOCYTOSIS 2+
[2022-07-19 11:00] VITALS: BP 122/88
[2022-07-19 18:00] VITALS: BP 126/77
--- NOTE | 2022-07-19 18:37 | NUR ---
Problems reprioritized. Patient report given, questions answered & plan of care reviewed with Prudence.
--- NOTE | 2022-07-19 19:15 | NUR ---
Patient in room ORTHO 4013. I have received report from MARIPOSA MEEKS and had the opportunity to ask questions and assume patient care.
[2022-07-19 22:48] VITALS: BP 145/85
[2022-07-20] MEDS: HYDROmorph/NS 0.2 mg/ml PCA 100 ML IV SCH ×4 (01:00→07:20)
[2022-07-20] MEDS: ringers solution, lacted 1,000 ML IV SCH (06:27)
--- NOTE | 2022-07-20 06:28 | NUR ---
Problems reprioritized. Patient report given, questions answered & plan of care reviewed with MICHELLE MEEKS.
[2022-07-20 06:55] VITALS: BP 138/92
[2022-07-20] MEDS: albuterol 2.5 MG/3 ML nebule NEB SCH ×4 (07:03→19:00)
[2022-07-20 07:05] LABS: BASOPHILS % (AUTO) 0.2 % (0-1); EOSINOPHILS # (AUTO) 0.2 X10'3 (0-0.9); EOSINOPHILS % (AUTO) 1.8 % (0-6); HEMATOCRIT 32.8 % (42.0-52.0); HEMOGLOBIN 10.8 g/dl (14.0-17.9); LYMPHOCYTES # (AUTO) 2.3 X10'3 (1.1-4.8); LYMPHOCYTES % (AUTO) 18.4 % (21-51); MEAN CORPUSCULAR HEMOGLOBIN 28.3 PG (27.0-31.0); MEAN CORPUSCULAR HGB CONC 32.8 g/dL (33.0-36.5); MEAN CORPUSCULAR VOLUME 86.2 FL (78-98); MEAN PLATELET VOLUME 7.7 FL (7.4-10.4); MONOCYTES # (AUTO) 0.8 X10'3 (0-0.9); MONOCYTES % (AUTO) 6.1 % (2-12); NEUTROPHILS # (AUTO) 9.3 X10'3 (1.8-7.7); NEUTROPHILS % (AUTO) 73.5 % (42-75); PLATELET COUNT 347 X10'3 (140-440); RED BLOOD COUNT 3.81 X10'6 (4.70-6.10); RED CELL DISTRIBUTION WIDTH 19.1 % (11.5-14.5); WHITE BLOOD COUNT 12.6 X10'3 (4.5-11.0)
[2022-07-20 07:24] LABS: ALBUMIN 2.1 G/DL (3.4-5.0); ANION GAP 7 (8-16); BLOOD UREA NITROGEN 5 MG/DL (7-18); BUN/CREATININE RATIO 6.4 (10.0-20.0); CHLORIDE 97 MMOL/L (99-107); CREATININE 0.78 MG/DL (0.60-1.10); GLUCOSE 92 MG/DL (70-104); POTASSIUM 3.9 MMOL/L (3.5-5.1); SODIUM 133 MMOL/L (135-145); TOTAL CARBON DIOXIDE 29.5 MMOL/L (24-32); eGFR > 90 ML/MIN
[2022-07-20] MEDS: enoxaparin 40mg/0.4ml syringe SQ SCH (08:34)
[2022-07-20] MEDS ORDERED: oxyCODONE/APAP 5-325mg tablet PO PRN (09:20)
[2022-07-20 10:00] VITALS: BP 142/82
[2022-07-20] MEDS: PCA WASTE DOCUMENTATION 1 MG ML MC SCH (10:21)
[2022-07-20] MEDS: oxyCODONE/APAP 5-325mg tablet PO PRN ×3 (10:26→23:13)
--- NOTE | 2022-07-20 10:30 | NUR ---
Patient in room ORTHO 4013. I have received report from Facundo GalindoData Architect and had the opportunity to ask questions and assume patient care.
--- NOTE | 2022-07-20 10:40 | NUR ---
Report given to Taylor Armando RN.
--- NOTE | 2022-07-20 11:30 | NUR ---
Physical assessment done by charge nurse, I agree with findings. Wounds assessed, pt refused dressing change, states "Dr. Shaw already did it this AM an does not want nursing to mess with it". pt educated about order change BID/PRN dressing change. Old Dressing in place, Abdominal wound w/demetrio BRENDA per . Abd wound has minor drainage on bottom of wound, wound is not well approximated in some areas of the wound. Pt is comfortable and in no distress. No pain at the moment. Olivares will be re-assessed tomorrow for DC. DO NOT REMOVED unless Dr. Shaw or Urologist gives order to DC.
--- NOTE | 2022-07-20 15:59 | NUR ---
Pt requested to have a dressing covering his abdominal surgical wound which was BRENDA per Dr. Shaw, pt is uncomfortable because demetrio keep getting stuck/rubbing on gown. Charge nurse Facundo gallo.
--- NOTE | 2022-07-20 16:52 | NUR ---
Problems reprioritized. Patient report given, questions answered & plan of care reviewed with Mihir MEEKS Charge.
[2022-07-20 18:00] VITALS: BP 132/84
--- NOTE | 2022-07-20 18:59 | NUR ---
Patient in room ORTHO 4013. I have received report from SOLE MEEKS and had the opportunity to ask questions and assume patient care.
[2022-07-20 22:00] VITALS: BP 139/83
--- NOTE | 2022-07-21 06:00 | NUR ---
received report from night nurse Prudence RN. Assumed care of patient. Patient resting bed. Alert. no c/o pain or discomfort. All safety measures in place and call light in reach. will continue to monitor.
--- NOTE | 2022-07-21 06:05 | NUR ---
FC DISCONTINUED S/P DAY 5 PER DOCTOR ANITA'S ORDER
[2022-07-21 06:15] LABS: ALBUMIN 2.2 G/DL (3.4-5.0); ANION GAP 8 (8-16); BLOOD UREA NITROGEN 6 MG/DL (7-18); BUN/CREATININE RATIO 7.5 (10.0-20.0); CHLORIDE 99 MMOL/L (99-107); GLUCOSE 95 MG/DL (70-104); POTASSIUM 3.7 MMOL/L (3.5-5.1); SODIUM 136 MMOL/L (135-145); TOTAL CARBON DIOXIDE 28.6 MMOL/L (24-32); eGFR > 90 ML/MIN
[2022-07-21 06:29] LABS: BASOPHILS % (AUTO) 0.3 % (0-1); EOSINOPHILS # (AUTO) 0.3 X10'3 (0-0.9); EOSINOPHILS % (AUTO) 2.9 % (0-6); HEMATOCRIT 33.1 % (42.0-52.0); HEMOGLOBIN 10.9 g/dl (14.0-17.9); LYMPHOCYTES # (AUTO) 2.4 X10'3 (1.1-4.8); LYMPHOCYTES % (AUTO) 22.3 % (21-51); MEAN CORPUSCULAR HEMOGLOBIN 28.4 PG (27.0-31.0); MEAN CORPUSCULAR HGB CONC 32.9 g/dL (33.0-36.5); MEAN CORPUSCULAR VOLUME 86.4 FL (78-98); MEAN PLATELET VOLUME 7.3 FL (7.4-10.4); MONOCYTES # (AUTO) 0.7 X10'3 (0-0.9); MONOCYTES % (AUTO) 6.7 % (2-12); NEUTROPHILS # (AUTO) 7.4 X10'3 (1.8-7.7); NEUTROPHILS % (AUTO) 67.8 % (42-75); PLATELET COUNT 371 X10'3 (140-440); RED BLOOD COUNT 3.83 X10'6 (4.70-6.10); RED CELL DISTRIBUTION WIDTH 18.8 % (11.5-14.5); WHITE BLOOD COUNT 10.9 X10'3 (4.5-11.0)
--- NOTE | 2022-07-21 06:36 | NUR ---
Problems reprioritized. Patient report given, questions answered & plan of care reviewed with JOON SANCHEZ.
[2022-07-21] MEDS: albuterol 2.5 MG/3 ML nebule NEB SCH (07:00)
[2022-07-21] MEDS: enoxaparin 40mg/0.4ml syringe SQ SCH (08:14)
[2022-07-21] MEDS ORDERED: PER5325T PO (09:51)
--- NOTE | 2022-07-21 10:09 | NUR ---
Initial: Pt hx colostomy and complicated diverticulitis s/p OR 07/16 for colostomy takedown, extensive RADHA, resection of terminal ileum/cecum/distal descending colon, and ileostomy per MD note. Pt advanced to clears 07/16 WS no intake documentation, full liquids 07/19 WS PO 100% first two meals, and then regular diet 07/20 WL PO 100% first two meals per EMR. Overall not meeting needs given NPO vs restrictive diet periods though if current intake persists will meet estimated needs. KRISTEN d/w RN regarding change to low-residue diet if MD agreeable given recent GI surgery and Ileostomy status. Pt seen by RD for written/verbal Ileostomy diet ed, fiber content of foods list, and RD contact information provided. RD encouraged pt to contact dietitian's office if further nutrition questions/concerns. Ileostomy -230ml past 24 hours per EMR. Will continue to follow. Rec: 1. transition to low-residue diet if MD agreeable 2. monitor further PO trends for ONS needs 3. bowel care per rx 4. weekly wt Addendum: 07/21/22 at [address] Amended: Links added.
--- NOTE | 2022-07-21 11:37 | NUR ---
discharged patient. Patient alert. No c/o pain or discomfort. Independent and walking without assistance. IV removed from patients right wrist. covered with gauze and tape. Patient education provided. Patient will follow up with for the removal of demetrio. Urine output 200CC in urinal. All patient belongings left with patient. All paper work signed and put in chart.
== END 2022-07-21 10:30 | disposition home or self-care (01) | DRG 231 ==
LOC: PAS IN 10:08 → ORTHO 4S 19:29
PROVIDERS: ADMIT Surgery; ATTEND Surgery
PROC: 0T9B80Z Drainage of Bladder with Drainage Device, Via Natural or Artificial Opening Endoscopic (ICD-10-PCS; 2022-07-16)
PROC: 0DBM0ZZ Excision of Descending Colon, Open Approach (ICD-10-PCS; principal; 2022-07-16 11:55)
PROC: 0DNB0ZZ Release Ileum, Open Approach (ICD-10-PCS; 2022-07-16 11:55)
DX: K57.32 Diverticulitis of large intestine without perforation or abscess without bleeding (principal); N36.5 Urethral false passage; K66.0 Peritoneal adhesions (postprocedural) (postinfection); Z93.3 Colostomy status
CPT/HCPCS: 36415; 80048; 82948; 85008; 85025; 86885; 86900; 86901; 94640; 94760; 97161; 97530; A4355; A4421; A4615; A4618; A5200; A6212; A6253; A6258; A6266; A6449; A7000; C1758; C1769; G0378; J0131; J0690; J0694; J1100; J1170; J1650; J2250; J2274; J2405; J2704; J2710; J3010; J3490; J7120; J7121

== ENCOUNTER 2022-08-09 11:17 | Inpatient (IN) | payer MEDICAID ==
[~2022-08-09] VITALS: Ht 165.1 cm; Wt 72.0 kg
[~2022-08-09 11:17] MED LIST changes: -cefazolin 2gm/D5W 100mL 100 ML IV ONE; -famotidine 20mg tablet PO ONE; -ringers solution, lacted 1,000 ML IV SCH
[2022-08-09] MEDS ORDERED: normal saline 1000ML IV soln IV ONE (11:40)
[2022-08-09] MEDS ORDERED: piperacillin/tazo 3.375gm/50ml 50 ML IV ONE (11:40)
[2022-08-09 12:53] LABS: EOSINOPHILS # (AUTO) 0.1 X10'3 (0-0.9); MONOCYTES # (AUTO) 0.9 X10'3 (0-0.9); WHITE BLOOD COUNT 17.5 X10'3 (4.5-11.0)
[2022-08-09 12:55] LABS: BASOPHILS # (AUTO) 0.1 X10'3 (0-0.2); BASOPHILS % (AUTO) 0.3 % (0-1); EOSINOPHILS % (AUTO) 0.3 % (0-6); HEMATOCRIT 49.2 % (42.0-52.0); HEMOGLOBIN 16.4 g/dl (14.0-17.9); LYMPHOCYTES % (AUTO) 22.8 % (21-51); MEAN CORPUSCULAR HEMOGLOBIN 27.3 PG (27.0-31.0); MEAN CORPUSCULAR HGB CONC 33.4 g/dL (33.0-36.5); MEAN CORPUSCULAR VOLUME 81.8 FL (78-98); MEAN PLATELET VOLUME 7.1 FL (7.4-10.4); MONOCYTES % (AUTO) 5.2 % (2-12); NEUTROPHILS # (AUTO) 12.5 X10'3 (1.8-7.7); NEUTROPHILS % (AUTO) 71.4 % (42-75); PLATELET COUNT 796 X10'3 (140-440); RED BLOOD COUNT 6.02 X10'6 (4.70-6.10); RED CELL DISTRIBUTION WIDTH 18.2 % (11.5-14.5)
[2022-08-09 13:06] LABS: ALANINE AMINOTRANSFERASE 58 U/L (12-78); ALBUMIN 3.7 G/DL (3.4-5.0); ALBUMIN/GLOBULIN RATIO 0.8 (1.1-1.5); ALKALINE PHOSPHATASE 195 IU/L (46-116); ANION GAP 8 (8-16); ASPARTATE AMINO TRANSFERASE 21 U/L (10-37); BILIRUBIN,TOTAL 0.3 MG/DL (0.1-1.0); BLOOD UREA NITROGEN 99 MG/DL (7-18); BUN/CREATININE RATIO 62.7 (10.0-20.0); CHLORIDE 95 MMOL/L (99-107); CREATININE 1.58 MG/DL (0.60-1.10); GLUCOSE 113 MG/DL (70-104); MAGNESIUM 2.4 MG/DL (1.5-2.4); SODIUM 125 MMOL/L (135-145); TOTAL CARBON DIOXIDE 22.3 MMOL/L (24-32); TOTAL PROTEIN 8.6 G/DL (6.4-8.2); eGFR 47 ML/MIN
[2022-08-09 13:09] LABS: POTASSIUM 7.1 MMOL/L (3.5-5.1)
[2022-08-09] MEDS ORDERED: dextrose 50%-water 50ml dispensing syringe IV ONE (13:20)
[2022-08-09] MEDS ORDERED: sodium bicarbonate (8.4%) 1 mEq/ml syringe IV ONE (13:20)
[2022-08-09] MEDS ORDERED: calcium chloride 100 MG/1 ML inj IV ONE (13:20)
[2022-08-09] MEDS ORDERED: insulin regular, human 10 units/0.1 ml syringe IV ONE (13:20)
--- NOTE | 2022-08-09 13:22 | NUR ---
RECEVIED CALL FROM PHARMACY {KELLY ,PHARMACIST},MAKING CALICIUM CHLORIDE ,INSTRUCTED TO BRING IT ANN PT K+ IS 7.1
[2022-08-09] MEDS ORDERED: calcium chloride inj. 1,000 MG in NS 100ml IV soln (110ml) IV ONE (13:25)
--- NOTE | 2022-08-09 13:30 | NUR ---
waiting meds bicarb and calcium chloride from pharmacy at this time .
[2022-08-09] MEDS ORDERED: albuterol 2.5 MG/3 ML nebule CONTNEB PRN (14:15)
[2022-08-09] MEDS ORDERED: ringers solution, lacted 1,000 ML IV ONE (14:20)
[2022-08-09] MEDS ORDERED: magnesium 2GM in 50ml NS 50 ML IV PRN (14:30)
[2022-08-09] MEDS ORDERED: acetaminophen 325mg tablet PO PRN ×2 (14:30)
[2022-08-09] MEDS ORDERED: ondansetron/PF 4mg/2ml inj IV PRN (14:30)
[2022-08-09] MEDS ORDERED: potassium Cl 40MEQ/1/2NS 520ml 520 ML IV PRN (14:30)
[2022-08-09] MEDS ORDERED: magnesium Cl slow-release 64mg tablet PO PRN (14:30)
[2022-08-09] MEDS ORDERED: potassium Cl 20 mEq SR tablet PO PRN ×2 (14:30)
[2022-08-09] MEDS ORDERED: morphine 2 MG/ML inj. syringe IV PRN ×2 (14:30)
[2022-08-09] MEDS ORDERED: HYDROcodone/acetaminophen 10/325mg tab PO PRN (14:30)
[2022-08-09] MEDS ORDERED: magnesium 4gm in 100ml NS 100 ML IV PRN (14:30)
[2022-08-09] MEDS ORDERED: sodium polystyrene sulfonate 15gm/60ml oral suspension PO ONE (15:05)
[2022-08-09 15:11] LABS: CLARITY,URINE CLEAR (Clear); COLOR,URINE YELLOW (Yellow); GLUCOSE, URINE NEGATIVE (Neg); KETONES,URINE NEGATIVE (Neg); LEUKOCYTE ESTERASE ,URINE NEGATIVE (Neg); NITRITES, URINE NEGATIVE (Neg); OCCULT BLOOD,URINE NEGATIVE (Neg); PROTEIN,URINE NEGATIVE (Neg); UROBILINOGEN,URINE 0.2 E.U/dL (0.2-1.0)
[2022-08-09 15:12] LABS: UA COLLECTION TYPE CLN CATCH MIDSTREAM
--- NOTE | 2022-08-09 15:23 | NUR ---
confirmed with the md {jackie}regarding the kayxalate po order as pt is npo ,as per md story to admin kayxalate.
--- NOTE | 2022-08-09 15:24 | NUR ---
as per dr mejia let the LR finish first and then start the n.s at ordered rate.
--- NOTE | 2022-08-09 16:16 | NUR ---
SPOKE TO ROSALBA MEEKS TO CALL REPORT PER RN THE PRIMARY RN IS ON LUNCH BREAK.
[2022-08-09 16:21] LABS: ANION GAP 9 (8-16); BLOOD UREA NITROGEN 84 MG/DL (7-18); BUN/CREATININE RATIO 58.7 (10.0-20.0); CALCIUM 9.7 MG/DL (8.5-10.1); CHLORIDE 99 MMOL/L (99-107); CREATININE 1.43 MG/DL (0.60-1.10); GLUCOSE 104 MG/DL (70-104); POTASSIUM 4.4 MMOL/L (3.5-5.1); SODIUM 130 MMOL/L (135-145); TOTAL CARBON DIOXIDE 22.3 MMOL/L (24-32); eGFR 53 ML/MIN
[2022-08-09] MEDS: nicotine 14mg patch - 24hr TD SCH (17:45)
[2022-08-09] MEDS: normal saline 1000ml 1,000 ML IV SCH ×2 (17:48→22:39)
[2022-08-09 19:00] VITALS: BP 129/84
--- NOTE | 2022-08-09 19:10 | NUR ---
Problems reprioritized. Patient report given, questions answered & plan of care reviewed with Kylah [facility].
[2022-08-09] MEDS: metroNIDAZOLE-Flagyl 500mg/NS 100 ML IV SCH (20:24)
--- NOTE | 2022-08-09 20:30 | NUR ---
AGRICULTURAL SCIENCES PROFESSOR documentation: I have reviewed and agree with all interventions, assessments performed and documented by Kylah Prakash LVN.
[2022-08-09 20:44] LABS: CLARITY,URINE CLEAR (Clear); COLOR,URINE YELLOW (Yellow); GLUCOSE, URINE NEGATIVE (Neg); KETONES,URINE NEGATIVE (Neg); LEUKOCYTE ESTERASE ,URINE NEGATIVE (Neg); NITRITES, URINE NEGATIVE (Neg); OCCULT BLOOD,URINE NEGATIVE (Neg); PH,URINE 5.5 (4.8-8.0); PROTEIN,URINE NEGATIVE (Neg); UROBILINOGEN,URINE 0.2 E.U/dL (0.2-1.0)
[2022-08-09 20:48] LABS: UA COLLECTION TYPE CLN CATCH MIDSTREAM
[2022-08-09 20:56] LABS: SODIUM,URINE RANDOM < 15 MEQ/L; TOTAL PROTEIN,URINE RANDOM 17.2 MG/DL
[2022-08-09] MEDS: ciprofloxacin lact 400MG/200ML 200 ML IV SCH (21:47)
[2022-08-09 21:59] LABS: UA EOSINOPHILS NO EOS /HPF
[2022-08-09 23:00] VITALS: BP 126/82
[2022-08-10 03:00] VITALS: BP 130/86
--- NOTE | 2022-08-10 03:12 | NUR ---
Page sent to -Pt [id number], Maria Esther Doherty, + blood culture, 08/09 1237, L arm aerobic + gram cocci chains. Lab just notified. Please advise. Kylah Reis @[phone].
--- NOTE | 2022-08-10 03:14 | NUR ---
responded to page, Pt currently on cipro IV, stated no new orders att.
[2022-08-10] MEDS: normal saline 1000ml 1,000 ML IV SCH ×3 (04:54→19:35)
--- NOTE | 2022-08-10 05:47 | NUR ---
Page sent to as FYI - Pt [id number], Maria Esther Doherty, [facility] lab called @ 0520 - (+)blood cultures - 08/09 @1155 R arm aerobic + 16hrs, gram + cocci in chains, and 08/09 @1237 L arm anerobic + @15 hrs, gram + cocci in chains. Kylah C @1066.
[2022-08-10 06:29] LABS: BASOPHILS % (AUTO) 0.3 % (0-1); EOSINOPHILS # (AUTO) 0.2 X10'3 (0-0.9); EOSINOPHILS % (AUTO) 1.3 % (0-6); HEMATOCRIT 43.1 % (42.0-52.0); HEMOGLOBIN 14.1 g/dl (14.0-17.9); LYMPHOCYTES # (AUTO) 3.8 X10'3 (1.1-4.8); LYMPHOCYTES % (AUTO) 24.4 % (21-51); MEAN CORPUSCULAR HEMOGLOBIN 26.9 PG (27.0-31.0); MEAN CORPUSCULAR HGB CONC 32.7 g/dL (33.0-36.5); MEAN CORPUSCULAR VOLUME 82.3 FL (78-98); MEAN PLATELET VOLUME 7.1 FL (7.4-10.4); MONOCYTES # (AUTO) 1.1 X10'3 (0-0.9); MONOCYTES % (AUTO) 7.2 % (2-12); NEUTROPHILS # (AUTO) 10.5 X10'3 (1.8-7.7); NEUTROPHILS % (AUTO) 66.8 % (42-75); PLATELET COUNT 599 X10'3 (140-440); RED BLOOD COUNT 5.24 X10'6 (4.70-6.10); RED CELL DISTRIBUTION WIDTH 17.9 % (11.5-14.5); WHITE BLOOD COUNT 15.7 X10'3 (4.5-11.0)
[2022-08-10 06:48] LABS: ALANINE AMINOTRANSFERASE 46 U/L (12-78); ALBUMIN 3.1 G/DL (3.4-5.0); ALBUMIN/GLOBULIN RATIO 0.7 (1.1-1.5); ALKALINE PHOSPHATASE 155 IU/L (46-116); ANION GAP 5 (8-16); ASPARTATE AMINO TRANSFERASE 21 U/L (10-37); BILIRUBIN,TOTAL 0.3 MG/DL (0.1-1.0); BLOOD UREA NITROGEN 60 MG/DL (7-18); BUN/CREATININE RATIO 47.6 (10.0-20.0); CALCIUM 9.4 MG/DL (8.5-10.1); CHLORIDE 99 MMOL/L (99-107); CREATININE 1.26 MG/DL (0.60-1.10); GLUCOSE 97 MG/DL (70-104); POTASSIUM 5.1 MMOL/L (3.5-5.1); SODIUM 130 MMOL/L (135-145); TOTAL CARBON DIOXIDE 25.9 MMOL/L (24-32); TOTAL PROTEIN 7.3 G/DL (6.4-8.2); eGFR 61 ML/MIN
--- NOTE | 2022-08-10 06:53 | NUR ---
Patient in room PCU 3010. I have received report from Kylah RN and had the opportunity to ask questions and assume patient care.
[2022-08-10] MEDS: nicotine 14mg patch - 24hr TD SCH (07:58)
[2022-08-10] MEDS: metroNIDAZOLE-Flagyl 500mg/NS 100 ML IV SCH ×2 (07:59→21:20)
[2022-08-10] MEDS: ciprofloxacin lact 400MG/200ML 200 ML IV SCH ×2 (07:59→19:34)
[2022-08-10 11:00] VITALS: BP 115/69
--- NOTE | 2022-08-10 11:06 | NUR ---
Malnutrition consult: Pt reports 14-23 lb wt loss with decreased appetite/PO intake per malnutrition risk screen with RN. Per scaled wt hx in EMR patient's wt fluctuates however overall fairly stable, currently -3.2 kg since most recent scaled wt of 75.2 kg taken 07/16 which is non-severe wt loss of 4% in 3.5 weeks. Patient's diet was just advanced to clear liquids from NPO and per EMR pt states he is very hungry. Pt with no documented significant decrease in muscle strength or edema. Pt currently lacks a minimum of two criteria for malnutrition though at a high risk should he lose any more weight, continue with an insufficient diet order for a prolonged period of time, or have high stool output with minimal PO intake. Noted pt received colostomy nutrition therapy education by RD 04/05 and ileostomy nutrition therapy education 07/[address] information provided both times. Will remain available should pt need further education and will continue to monitor s/s of malnutrition. Addendum: 08/10/22 at [address] Amended: Links added.
[2022-08-10] MEDS ORDERED: diatr meglu/diatrizoate 30ml oral sol.-(3 dose) bottle ONE (14:04)
--- NOTE | 2022-08-10 15:42 | NUR ---
Appliance changed ostomy is healthy. Pt. is in full change of all ostomy care.
--- NOTE | 2022-08-10 16:21 | NUR ---
Dr. mejia is already aware that Pt. is eating foods from his personal belongings bag that are not on the clear liquid diet. This afternoon Pt. was eating a large order of garlic fries. Nursing instructions for clear liquid diet understood but disregarded by the Pt.
[2022-08-10 18:00] VITALS: BP 115/76
--- NOTE | 2022-08-10 20:17 | NUR ---
Per pt. he is not "non-compliant", he "just wants to be informed". Feels like he would like to leave hospital. INformed of his right to leave AMA, but pt. denies wanting to leave "right at this moment" due to living far away ([place]). States he felt the MD and nursing staff did not listen to him enough. States he will not work with wound care r/t to the same reason. Pt. reassured and "listened" to. Pt. describes performing adequate wound care at home , however an education session in infection control was provided, and now pt. is performing his own wound care with gloves. Per his choice. Refusing staple removal at this time. States the last time his demetrio were removed 3 weeks post surgery, his wound "collapsed" or dehisced. States "I should be going back to surgery to be plugged back up any time now. and then they will remove these demetrio and place new ones somewhere else." He would like regular food and his diet is ordered advance as tolerated. He denies nausea, states he is passing stool. Liquid OP in ileostomy copious. Diet advanced. Pt. has stored [employer] in his side drawers and has been eating these with a CL diet ordered anyways. He ambulates in the [place] often. (Has been educated about his isolation status and infection control measures) States he passes stool out of his anus as well, but that it's "been a couple weeks".
[2022-08-10 22:00] VITALS: BP 110/68
[2022-08-11 02:00] VITALS: BP 120/76
[2022-08-11] MEDS: normal saline 1000ml 1,000 ML IV SCH ×2 (05:53→17:53)
[2022-08-11 06:13] LABS: ALANINE AMINOTRANSFERASE 32 U/L (12-78); ALBUMIN 2.8 G/DL (3.4-5.0); ALBUMIN/GLOBULIN RATIO 0.7 (1.1-1.5); ALKALINE PHOSPHATASE 132 IU/L (46-116); ANION GAP 7 (8-16); ASPARTATE AMINO TRANSFERASE 14 U/L (10-37); BILIRUBIN,TOTAL 0.2 MG/DL (0.1-1.0); BLOOD UREA NITROGEN 31 MG/DL (7-18); BUN/CREATININE RATIO 33.7 (10.0-20.0); CALCIUM 8.5 MG/DL (8.5-10.1); CHLORIDE 99 MMOL/L (99-107); CREATININE 0.92 MG/DL (0.60-1.10); GLUCOSE 93 MG/DL (70-104); MAGNESIUM 1.9 MG/DL (1.5-2.4); MEAN PLATELET VOLUME 7.4 FL (7.4-10.4); PHOSPHORUS 2.6 MG/DL (2.3-4.5); POTASSIUM 3.8 MMOL/L (3.5-5.1); SODIUM 131 MMOL/L (135-145); TOTAL PROTEIN 6.6 G/DL (6.4-8.2); eGFR 87 ML/MIN
[2022-08-11 06:15] LABS: BASOPHILS # (AUTO) 0.1 X10'3 (0-0.2); BASOPHILS % (AUTO) 0.4 % (0-1); EOSINOPHILS # (AUTO) 0.3 X10'3 (0-0.9); EOSINOPHILS % (AUTO) 1.8 % (0-6); HEMATOCRIT 35.8 % (42.0-52.0); HEMOGLOBIN 12.1 g/dl (14.0-17.9); LYMPHOCYTES # (AUTO) 4.3 X10'3 (1.1-4.8); MEAN CORPUSCULAR HGB CONC 33.9 g/dL (33.0-36.5); MEAN CORPUSCULAR VOLUME 82.4 FL (78-98); MONOCYTES # (AUTO) 1.3 X10'3 (0-0.9); MONOCYTES % (AUTO) 7.8 % (2-12); NEUTROPHILS # (AUTO) 11.1 X10'3 (1.8-7.7); PLATELET COUNT 491 X10'3 (140-440); RED BLOOD COUNT 4.34 X10'6 (4.70-6.10); RED CELL DISTRIBUTION WIDTH 17.6 % (11.5-14.5); WHITE BLOOD COUNT 17.1 X10'3 (4.5-11.0)
--- NOTE | 2022-08-11 06:26 | NUR ---
Gave report to Fozia MEEKS
--- NOTE | 2022-08-11 06:57 | NUR ---
Patient in room PCU 3010. I have received report from CONSTANTINO LAYTON and had the opportunity to ask questions and assume patient care.
[2022-08-11 07:00] VITALS: BP 100/52
[2022-08-11] MEDS ORDERED: CIPROFLOXACIN 200mg/D5W 100 ML premix IV SCH ×2 (07:00→07:30)
[2022-08-11] MEDS: nicotine 14mg patch - 24hr TD SCH (08:00)
[2022-08-11] MEDS: metroNIDAZOLE-Flagyl 500mg/NS 100 ML IV SCH ×2 (11:45→21:13)
[2022-08-11 12:00] VITALS: BP 115/58
[2022-08-11 16:07] VITALS: BP 119/74
[2022-08-11 18:00] VITALS: BP 115/74
--- NOTE | 2022-08-11 18:38 | NUR ---
Problems reprioritized. Patient report given, questions answered & plan of care reviewed with CONSTANTINO PARK.
--- NOTE | 2022-08-11 18:50 | NUR ---
Patient in room PCU 3010. I have received report from Fozia MEEKS and had the opportunity to ask questions and assume patient care.
[2022-08-11] MEDS: CIPROFLOXACIN 400MG/200ML premix IV SCH (20:14)
[2022-08-12] MEDS: normal saline 1000ml 1,000 ML IV SCH ×4 (00:55→20:30)
[2022-08-12 01:08] VITALS: BP 120/70
[2022-08-12] MEDS: HYDROcodone/acetaminophen 5mg/325mg tablet PO PRN ×2 (01:08→20:30)
[2022-08-12 06:25] LABS: BASOPHILS # (AUTO) 0.1 X10'3 (0-0.2); BASOPHILS % (AUTO) 0.4 % (0-1); EOSINOPHILS # (AUTO) 0.4 X10'3 (0-0.9); EOSINOPHILS % (AUTO) 2.7 % (0-6); HEMATOCRIT 31.5 % (42.0-52.0); HEMOGLOBIN 10.4 g/dl (14.0-17.9); LYMPHOCYTES % (AUTO) 27.4 % (21-51); MEAN CORPUSCULAR HEMOGLOBIN 27.6 PG (27.0-31.0); MEAN CORPUSCULAR VOLUME 83.8 FL (78-98); MEAN PLATELET VOLUME 6.8 FL (7.4-10.4); MONOCYTES # (AUTO) 1.1 X10'3 (0-0.9); MONOCYTES % (AUTO) 7.7 % (2-12); NEUTROPHILS % (AUTO) 61.8 % (42-75); PLATELET COUNT 382 X10'3 (140-440); RED BLOOD COUNT 3.77 X10'6 (4.70-6.10); RED CELL DISTRIBUTION WIDTH 17.3 % (11.5-14.5); WHITE BLOOD COUNT 14.5 X10'3 (4.5-11.0)
[2022-08-12 06:35] LABS: ALANINE AMINOTRANSFERASE 24 U/L (12-78); ALBUMIN 2.3 G/DL (3.4-5.0); ALBUMIN/GLOBULIN RATIO 0.7 (1.1-1.5); ALKALINE PHOSPHATASE 112 IU/L (46-116); ANION GAP 6 (8-16); ASPARTATE AMINO TRANSFERASE 11 U/L (10-37); BILIRUBIN,TOTAL 0.1 MG/DL (0.1-1.0); BLOOD UREA NITROGEN 19 MG/DL (7-18); BUN/CREATININE RATIO 22.4 (10.0-20.0); CALCIUM 8.1 MG/DL (8.5-10.1); CHLORIDE 104 MMOL/L (99-107); CREATININE 0.85 MG/DL (0.60-1.10); GLUCOSE 96 MG/DL (70-104); MAGNESIUM 1.7 MG/DL (1.5-2.4); PHOSPHORUS 2.5 MG/DL (2.3-4.5); POTASSIUM 3.5 MMOL/L (3.5-5.1); SODIUM 133 MMOL/L (135-145); TOTAL CARBON DIOXIDE 22.8 MMOL/L (24-32); TOTAL PROTEIN 5.6 G/DL (6.4-8.2); eGFR > 90 ML/MIN
--- NOTE | 2022-08-12 06:35 | NUR ---
Problems reprioritized. Patient report given, questions answered & plan of care reviewed with Fozia MEEKS.
--- NOTE | 2022-08-12 06:38 | NUR ---
Patient in room PCU 3010. I have received report from CONSTANTINO PARK and had the opportunity to ask questions and assume patient care.
[2022-08-12 07:00] VITALS: BP 111/66
[2022-08-12] MEDS: metroNIDAZOLE-Flagyl 500mg/NS 100 ML IV SCH (08:50)
[2022-08-12] MEDS ORDERED: NO HOME MEDS (09:36)
[2022-08-12] MEDS: CIPROFLOXACIN 400MG/200ML premix IV SCH (11:01)
[2022-08-12 12:00] VITALS: BP 104/66
--- NOTE | 2022-08-12 12:37 | NUR ---
OSTOMY FACTS: Almost everyone has know of, or met, businessmen, entertainers, athletes, and people from all walks of life who have an ostomy. Ostomates (a person that has an ostomy) can ski, ride horses, bowl, and get healthy exercise in countless ways. Your usual activities of daily living can be resumed as soon as you are able. Gradually you will be able to wear the clothes worn before surgery. With modern pouches, nothing is noticeable under your clothing. It may be difficult at first to believe that an intimate relationship can be possible when one's body has been disfigured by surgery. This is not true. Love, fortunately, is not easily destroyed when it is based on genuine appreciation of a person as a thinking, feeling, reacting human being. AN OSTOMY IS NOT AN IMPAIRMENT!! DEFINITIONS: 1.OSTOMY: An opening that is created by a surgical procedure. The opening is called a "stoma". 2.STOMA: A surgical opening in the abdomen (belly) where intestine is brought through the abdominal wall and connected at the skin level. A stoma is shiny, wet and at first is dark purple but eventually turns pink, similar to the inside lining of your mouth. 3.COLON: A portion of the large bowel. 4.COLOSTOMY: A fecal diversion with an opening, (stoma) created anywhere along the colon. Making a connection between the colon and the abdominal wall. 5.ILLEOSTOMY: A fecal diversion with an opening, (stoma) created in the small intestine. Making a connection between the small intestine and the abdominal wall. 6.UROSTOMY: A urinary diversion with the ureters connected to a segment of the small bowel and one end is brought out and connected to the abdominal wall, creating a stoma. SHAPES and SIZES: "The stoma is usually round or oval. "It is anywhere from a dime to half dollar in size. "A stoma reaches its permanent size 6-8 weeks after surgery. PRODUCTS: 1.POUCH or APPLIANCE: An external device to contain stool or urine output and protect the skin around the stoma. It can be a one piece pouch or two pieces (a pouch and a wafer). 2.BARRIER: Substance that is used to protect the skin around the stoma from drainage and adhesive. 3.SKIN PREP or SEALANT: Product applied to the skin to reduce injury from moisture, drainage, or repeated pouch removal. Available in spray or wipes. 4.CLOSURE or CLAMP: A device used to close the bottom of a drainable pouch. 5.BRIDGE or ERICK: A piece of plastic placed under a loop of bowel on the skins surface, to secure the bowel in place while the skin heals. POUCH CHANGE PROCEEDURE: 1.Assemble all the supplies "1 or 2 piece appliance "Ostomy paste (if needed) "Ostomy powder (if needed) "Skin prep wipes ( not recommended with coloplast products) "Moist wash cloth or cotton balls 2.Remove plastic center and paper backing from pouch. If pouch or wafer is not precut, use the sizing guide, or plastic backing from pouch to make a pattern. Do this by placing the paper over the stoma and trace it, or draw a pattern. Cut the wafer to fit and set it aside. 3.Remove old pouch by lifting up on tape while pressing skin down away from the tape. If there is a clip on your pouch, remove it and save it. 4.Clean skin or stoma with moistened wash cloth or cotton balls. Place a clean cotton ball over stoma hole to catch any drainage. Let skin dry. 5.For grooves or uneven areas in the skin- apply ostomy paste and sprinkle with ostomy powder, then gently shape the past so the area around the stoma is smooth and as flat as possible. Wipe off or blow away excess. Blot powder with skin prep wipe (DO NOT wipe powder). Let dry until no longer sticky. 6.For irritated or reddened skin- sprinkle ostomy powder on red or irritated area. Wipe off or blow away excess. Blot powder with skin prep wipe (DO NOT wipe powder). Let dry until no longer sticky. 7.Apply skin prep wipe to skin to which the pouch and tape will adhere. Let dry until no longer sticky. 8.If you have a one piece appliance- apply pouch so it is centered around the stoma. No skin should be exposed to stool. All skin should be covered by paste or pouch. 9.If you have a two piece appliance- Apply the wafer as described above, then snap or stick pouch onto wafer. Check to make sure wafer and pouch are securely connected. 10.Place clip on bottom of pouch. 11.Empty pouch when 1/3 full. OSTOMY SKIN CARE: "Good health care and nutrition are essential for healthy skin. "Usually a correct pouch size will prevent skin breakdown. "Use warm water and soap for skin cleansing. "Do not use creams or oil based products on skin around the stoma. This will prevent the appliance from sticking. "Use skin prep around the stoma. IT CAN TAKE 24 HOURS TO SEVERAL DAYS FOR SKIN TO HEAL. IF IT IS NOT RESOLVING, OR GETTING WORSE, CALL YOUR PRIMARY CARE DOCTOR. Addendum: 08/12/22 at 1238 by June Hamlin RN Amended: Links added.
--- NOTE | 2022-08-12 12:51 | NUR ---
Provided with Mike Sebastian for his next change. His stoma to his right abdomen is red moist and noted to have large amount of food particles in the pouch. Educated pt on need to chew food well and he states that he is edentulous. Also educated on hydration due to high output ileostomy and gave examples. He is independent in ostomy care and provided him with new pouch for next change. He states that he is going to have reversal soon. Addendum: 08/12/22 at 1252 by June Hamlin RN Amended: Links added.
[2022-08-12 16:00] VITALS: BP 108/71
[2022-08-12 18:00] VITALS: BP 116/71
--- NOTE | 2022-08-12 18:12 | NUR ---
PATIENT EMPTIES OWN ILEOSTOMY BAG Addendum: 08/12/22 at 1813 by Fozia Robles RN Amended: Links added.
--- NOTE | 2022-08-12 18:41 | NUR ---
Problems reprioritized. Patient report given, questions answered & plan of care reviewed with CONSTANTINO SAL.
[2022-08-12] MEDS: linezolid 600mg/300ml PREMIX 300 ML IV SCH (20:29)
--- NOTE | 2022-08-12 20:30 | NUR ---
PT EMPTIES OWN ILEOSTOMY BAG AND REFUSED WOUND CARE THIS SHIFT. PT SAID HE WOULD DO HIS OWN WOUND CARE TOMORROW.
[2022-08-12 23:52] VITALS: BP 114/71
[2022-08-13 02:54] VITALS: BP 112/63
--- NOTE | 2022-08-13 04:00 | NUR ---
PT ADVISED TO RECORD OUTPUT SO WE CAN DOCUMENT IT. HE SAID HE WILL TRY AND RECORD SO WE CAN DOCUMENT. PT STATES HE KNOWS WHAT HIS AVERAGE IS AND IT HAS BEEN HIS NORMAL AMOUNT TONIGHT.
[2022-08-13] MEDS: normal saline 1000ml 1,000 ML IV SCH ×3 (04:50→22:30)
--- NOTE | 2022-08-13 06:17 | NUR ---
Problems reprioritized. Patient report given, questions answered & plan of care reviewed with CONSTANTINO MURPHY.
--- NOTE | 2022-08-13 06:32 | NUR ---
Patient in room PCU 3010. I have received report from CONSTANTINO SAL and had the opportunity to ask questions and assume patient care.
[2022-08-13 07:00] VITALS: BP 120/70
[2022-08-13 07:41] LABS: EOSINOPHILS # (AUTO) 0.4 X10'3 (0-0.9); LYMPHOCYTES # (AUTO) 3.3 X10'3 (1.1-4.8); MONOCYTES # (AUTO) 1.1 X10'3 (0-0.9); MONOCYTES % (AUTO) 6.8 % (2-12)
[2022-08-13 07:43] LABS: BASOPHILS % (AUTO) 0.2 % (0-1); EOSINOPHILS % (AUTO) 2.6 % (0-6); HEMATOCRIT 32.8 % (42.0-52.0); LYMPHOCYTES % (AUTO) 19.9 % (21-51); MEAN CORPUSCULAR HEMOGLOBIN 27.8 PG (27.0-31.0); MEAN CORPUSCULAR HGB CONC 33.4 g/dL (33.0-36.5); MEAN PLATELET VOLUME 7.3 FL (7.4-10.4); NEUTROPHILS # (AUTO) 11.8 X10'3 (1.8-7.7); NEUTROPHILS % (AUTO) 70.5 % (42-75); PLATELET COUNT 383 X10'3 (140-440); RED BLOOD COUNT 3.95 X10'6 (4.70-6.10); RED CELL DISTRIBUTION WIDTH 17.9 % (11.5-14.5); WHITE BLOOD COUNT 16.7 X10'3 (4.5-11.0)
[2022-08-13 08:03] LABS: ALANINE AMINOTRANSFERASE 21 U/L (12-78); ALBUMIN 2.2 G/DL (3.4-5.0); ALBUMIN/GLOBULIN RATIO 0.6 (1.1-1.5); ALKALINE PHOSPHATASE 105 IU/L (46-116); ANION GAP 8 (8-16); ASPARTATE AMINO TRANSFERASE 13 U/L (10-37); BILIRUBIN,TOTAL 0.1 MG/DL (0.1-1.0); BLOOD UREA NITROGEN 12 MG/DL (7-18); BUN/CREATININE RATIO 16.9 (10.0-20.0); CALCIUM 7.9 MG/DL (8.5-10.1); CHLORIDE 104 MMOL/L (99-107); CREATININE 0.71 MG/DL (0.60-1.10); GLUCOSE 93 MG/DL (70-104); MAGNESIUM 1.4 MG/DL (1.5-2.4); POTASSIUM 3.4 MMOL/L (3.5-5.1); SODIUM 133 MMOL/L (135-145); TOTAL CARBON DIOXIDE 20.9 MMOL/L (24-32); TOTAL PROTEIN 5.6 G/DL (6.4-8.2); eGFR > 90 ML/MIN
--- NOTE | 2022-08-13 09:19 | NUR ---
Dr Shaw at bedside, wounds assessed and new orders to change to thera honey and gauze daily obtained. Report to primary RN and provided honey for dressing chagne. Addendum: 08/13/22 at 0921 by June Hamlin RN Amended: Links added.
[2022-08-13] MEDS: linezolid 600mg/300ml PREMIX 300 ML IV SCH ×2 (10:57→20:25)
[2022-08-13 11:00] VITALS: BP 102/71
--- NOTE | 2022-08-13 13:38 | NUR ---
Dr Shaw at bedside to assess surgical wounds. New orders obtained to change wound care to thera honey and gauze. Pt likely will go home this afternoon and return later next week to have his ostomy taken down. Report to primary nurse and provided her with dorcas granger for dressing changes. Addendum: 08/13/22 at 1341 by June Hamlin RN Amended: Links added.
[2022-08-13 15:00] VITALS: BP 114/70
[2022-08-13] MEDS ORDERED: PERFLUTREN PROTEIN-A MICROSPHR (Optison) 0.22 MG/ML 3ML VIAL IV ONE (15:40)
[2022-08-13] MEDS ORDERED: potassium Cl 40MEQ/1/2NS 520ml 520 ML IV PRN (16:45)
[2022-08-13] MEDS ORDERED: magnesium 2GM in 50ml NS 50 ML IV PRN (16:45)
[2022-08-13] MEDS ORDERED: potassium Cl 20 mEq SR tablet PO PRN ×2 (16:45)
[2022-08-13] MEDS ORDERED: magnesium 4gm in 100ml NS 100 ML IV PRN (16:45)
[2022-08-13 18:00] VITALS: BP 104/69
--- NOTE | 2022-08-13 18:47 | NUR ---
Problems reprioritized. Patient report given, questions answered & plan of care reviewed with CONSTANTINO SAL.
[2022-08-13] MEDS: magnesium Cl slow-release 64mg tablet PO PRN (19:24)
[2022-08-13] MEDS: K and/or MAG REPLACEMENT MC SCH (20:00)
[2022-08-13 22:15] VITALS: BP 101/72
[2022-08-13] MEDS: HYDROcodone/acetaminophen 5mg/325mg tablet PO PRN (22:19)
[2022-08-14 02:30] VITALS: BP 111/81
--- NOTE | 2022-08-14 05:25 | NUR ---
PT EMPTIES OWN ILEOSTOMY AND DID NOT RECORD ALL HIS OUTPUT TONIGHT.
--- NOTE | 2022-08-14 06:15 | NUR ---
Problems reprioritized. Patient report given, questions answered & plan of care reviewed with LAURA MUELLER.
[2022-08-14] MEDS: normal saline 1000ml 1,000 ML IV SCH (06:30)
--- NOTE | 2022-08-14 06:34 | NUR ---
Patient in room PCU 3010. I have received report from Andreea MEEKS and had the opportunity to ask questions and assume patient care.
[2022-08-14 06:49] LABS: BASOPHILS # (AUTO) 0.1 X10'3 (0-0.2); BASOPHILS % (AUTO) 0.4 % (0-1); EOSINOPHILS # (AUTO) 0.5 X10'3 (0-0.9); EOSINOPHILS % (AUTO) 2.9 % (0-6); HEMATOCRIT 35.8 % (42.0-52.0); HEMOGLOBIN 11.7 g/dl (14.0-17.9); LYMPHOCYTES # (AUTO) 2.9 X10'3 (1.1-4.8); LYMPHOCYTES % (AUTO) 18.6 % (21-51); MEAN CORPUSCULAR HEMOGLOBIN 27.7 PG (27.0-31.0); MEAN CORPUSCULAR HGB CONC 32.7 g/dL (33.0-36.5); MEAN CORPUSCULAR VOLUME 84.6 FL (78-98); MEAN PLATELET VOLUME 7.4 FL (7.4-10.4); MONOCYTES % (AUTO) 6.3 % (2-12); NEUTROPHILS # (AUTO) 11.2 X10'3 (1.8-7.7); NEUTROPHILS % (AUTO) 71.8 % (42-75); PLATELET COUNT 389 X10'3 (140-440); RED BLOOD COUNT 4.24 X10'6 (4.70-6.10); RED CELL DISTRIBUTION WIDTH 17.6 % (11.5-14.5); WHITE BLOOD COUNT 15.7 X10'3 (4.5-11.0)
[2022-08-14 06:52] LABS: ALANINE AMINOTRANSFERASE 14 U/L (12-78); ALBUMIN 2.2 G/DL (3.4-5.0); ALBUMIN/GLOBULIN RATIO 0.6 (1.1-1.5); ALKALINE PHOSPHATASE 96 IU/L (46-116); ANION GAP 9 (8-16); ASPARTATE AMINO TRANSFERASE 11 U/L (10-37); BILIRUBIN,TOTAL 0.1 MG/DL (0.1-1.0); BLOOD UREA NITROGEN 6 MG/DL (7-18); BUN/CREATININE RATIO 7.9 (10.0-20.0); CALCIUM 8.2 MG/DL (8.5-10.1); CHLORIDE 105 MMOL/L (99-107); CREATININE 0.76 MG/DL (0.60-1.10); GLUCOSE 95 MG/DL (70-104); MAGNESIUM 1.4 MG/DL (1.5-2.4); PHOSPHORUS 2.4 MG/DL (2.3-4.5); POTASSIUM 3.7 MMOL/L (3.5-5.1); SODIUM 136 MMOL/L (135-145); TOTAL CARBON DIOXIDE 22.4 MMOL/L (24-32); eGFR > 90 ML/MIN
[2022-08-14 07:00] VITALS: BP 102/74
[2022-08-14] MEDS: linezolid 600mg/300ml PREMIX 300 ML IV SCH (07:37)
[2022-08-14] MEDS: K and/or MAG REPLACEMENT MC SCH (08:00)
[2022-08-14] MEDS: magnesium Cl slow-release 64mg tablet PO PRN (08:16)
[2022-08-14] MEDS ORDERED: LINE600T11 PO (09:51)
[2022-08-14] MEDS ORDERED: HYDR-3972 PO (10:27)
[2022-08-14 10:30] VITALS: BP 101/72
--- NOTE | 2022-08-14 11:00 | NUR ---
Patient discharged home with all belongings and discharge instructions. IV removed and tele box removed and returned to telemarketer supervisor. Escorted out via wheel chair and wants to sit on the bench until his ride gets here.
--- NOTE | 2022-08-14 12:48 | NUR ---
PRESSURE ULCER EDUCATION: DEFINITION: A pressure ulcer is an area of skin that breaks down when you stay in one position too long. The constant pressure against the skin reduces the blood flow to that area and the affected tissue dies. CAUSES: "Being bedridden or in a wheelchair "Fragile skin "Having a chronic condition, such as diabetes or vascular disease "Inability to move certain parts of your body without assistance "Older age "Incontinence of urine or stool SYMPTOMS: "A reddened area that DOES NOT turn white when pressed on - this can be the beginning of a pressure ulcer "A blister, deep sore or a crater - these can be advanced pressure ulcers FIRST AID: "Relieve the pressure on this area "Keep the area clean and dry "Call your primary doctor if you see any of the above symptoms "DO NOT massage the area "DO NOT use a donut shaped or ring shaped pillow- these actually interfere with the blood flow and cause complications PREVENTION: "Check for pressure ulcers everyday "Change position at least every two hours to relieve pressure "Use items that help relieve pressure- pillows, sheepskin, foam padding, and powders. "Keep skin clean and dry "Eat healthy well balanced meals "Exercise daily IF YOU SEE ANY OF THESE SYMPTOMS WHILE IN THE HOSPITAL - TELL YOUR NURSE IMMEDIATELY. IF YOU SEE ANY OF THESE SYMPTOMS WHILE AT HOME OR HAVE ANY QUESTIONS OR CONCERNS ABOUT PRESSURE ULCERS - CALL YOUR PRIMARY DOCTOR IMMEDIATELY. Addendum: 08/14/22 at 1249 by Reji Hull RN Amended: Links added.
== END 2022-08-14 11:00 | disposition home or self-care (01) | DRG 720 ==
LOC: ER 11:18 → ED HOLD 14:35 → PCU 3S 17:08
PROVIDERS: ADMIT Internal Medicine; ATTEND Internal Medicine
DX: A41.81 Sepsis due to Enterococcus (principal); N17.0 Acute kidney failure with tubular necrosis; E87.1 Hypo-osmolality and hyponatremia; E86.0 Dehydration; R65.20 Severe sepsis without septic shock; E87.6 Hypokalemia; F12.90 Cannabis use, unspecified, uncomplicated; E83.42 Hypomagnesemia; E87.5 Hyperkalemia; F17.210 Nicotine dependence, cigarettes, uncomplicated; Z93.2 Ileostomy status; Z93.3 Colostomy status
CPT/HCPCS: 36415; 71045; 74176; 80048; 80053; 81003; 82570; 82948; 83605; 83735; 84100; 84145; 84156; 84300; 85025; 85651; 87040; 87077; 87081; 87186; 87207; 93306; 94640; 99285; A4421; A4649; A6212; A6260; A6449; A6455; G0378; J0744; J1815; J2020; J2543; J3490; J7030; J7040; J7120; Q9963

== ENCOUNTER 2022-10-01 06:52 | Inpatient (IN) | payer MEDICAID ==
[2022-09-24 14:42] LABS: BASOPHILS # (AUTO) 0.1 X10'3 (0-0.2); BASOPHILS % (AUTO) 0.4 % (0-1); EOSINOPHILS # (AUTO) 0.2 X10'3 (0-0.9); EOSINOPHILS % (AUTO) 1.9 % (0-6); LYMPHOCYTES # (AUTO) 4.4 X10'3 (1.1-4.8); LYMPHOCYTES % (AUTO) 36.8 % (21-51); MEAN CORPUSCULAR HEMOGLOBIN 28.8 PG (27.0-31.0); MEAN CORPUSCULAR HGB CONC 33.5 g/dL (33.0-36.5); MEAN CORPUSCULAR VOLUME 85.8 FL (78-98); MEAN PLATELET VOLUME 6.8 FL (7.4-10.4); MONOCYTES # (AUTO) 0.8 X10'3 (0-0.9); MONOCYTES % (AUTO) 6.7 % (2-12); NEUTROPHILS # (AUTO) 6.5 X10'3 (1.8-7.7); NEUTROPHILS % (AUTO) 54.2 % (42-75); PRE OP HEMATOCRIT 43.7 % (42.0-52.0); PRE OP HEMOGLOBIN 14.7 g/dL (14.0-17.9); PRE OP PLATELET COUNT 414 X10'3 (140-440); RED CELL DISTRIBUTION WIDTH 17.6 % (11.5-14.5)
[2022-09-24 15:00] LABS: ALBUMIN 3.8 G/DL (3.4-5.0); ALKALINE PHOSPHATASE 132 IU/L (46-116); BLOOD UREA NITROGEN 23 MG/DL (7-18); BUN/CREATININE RATIO 22.3 (10.0-20.0); CALCIUM 9.4 MG/DL (8.5-10.1); CHLORIDE 101 MMOL/L (99-107); CREATININE 1.03 MG/DL (0.60-1.10); PRE OP ALT 44 U/L (30-65); PRE OP ANION GAP 8 (8-16); PRE OP AST 23 U/L (10-37); PRE OP BILIRUB, TOTAL 0.4 MG/DL (0.0-1.0); PRE OP GLUCOSE 79 MG/DL (70-104); PRE OP SODIUM 136 MMOL/L (135-145); TOTAL CARBON DIOXIDE 27.1 MMOL/L (24-32); TOTAL PROTEIN 7.8 G/DL (6.4-8.2); eGFR 77 ML/MIN
[~2022-10-01] VITALS: Ht 165.1 cm; Wt 70.9 kg
[2022-10-01] VITALS (30 sets, daily range): BP systolic 103–140; BP diastolic 61–95; PULSE 60–107; RESP 12–20; TEMP 97.1–99.1; O2SAT 92–100
[~2022-10-01 06:52] MED LIST changes: -MARIJUANA INH; +NO HOME MEDS; -PER5325T PO; +ceFOXitin 2GM-NS 100mL ADDvant 100 ML IV ONE; +famotidine 20mg tablet PO ONE; +ringers solution, lacted 1,000 ML IV SCH
[2022-10-01] MEDS ORDERED: morphine 2 MG/ML inj. syringe IV PRN (07:20)
[2022-10-01] MEDS ORDERED: ringers solution, lacted 1,000 ML IV SCH (07:20)
[2022-10-01] MEDS ORDERED: ondansetron/PF 4mg/2ml inj IV PRN ×2 (07:20→11:45)
[2022-10-01] MEDS ORDERED: fentaNYL/PF 50MCG/1 ML 2ML syringe IV PRN ×2 (07:20)
[2022-10-01] MEDS ORDERED: hydrALAZINE 20mg/ml inj. IV PRN (07:20)
[2022-10-01] MEDS ORDERED: labetalol 20mg/4ml (5mg/ml) syringe IV PRN (07:20)
[2022-10-01] MEDS ORDERED: BUPIVAcaine/PF 2.5 mg/ml (0.25%) 30ml vial ONE (09:10)
[2022-10-01] MEDS ORDERED: LIDOcaine 1% (10mg/ml)w/preservative inj. 20ml MDV ONE (09:10)
[2022-10-01] MEDS ORDERED: neostigmine methylsulfate 1 MG/ML 10ml vial ONE (09:20)
[2022-10-01] MEDS ORDERED: rocuronium 10mg/ml inj IV ONE ×2 (09:20→09:39)
[2022-10-01] MEDS ORDERED: dexamethasone sod phosphate 10mg/ml inj ONE (09:20)
[2022-10-01] MEDS ORDERED: sevoflurane 250ml liquid IH ONE (09:20)
[2022-10-01] MEDS ORDERED: fentaNYL /PF 50mcg/ml 5ml ampule ONE (09:29)
[2022-10-01] MEDS ORDERED: midazolam 1 mg/ML 2ml injection ONE (09:29)
[2022-10-01] MEDS ORDERED: LIDOcaine 1% w/EPI 1:100,000 30ml vial (MDV) IJ ONE (09:30)
[2022-10-01] MEDS ORDERED: BUPIVAcaine/PF 2.5 mg/ml (0.25%) 30ml vial IJ ONE (09:30)
[2022-10-01] MEDS ORDERED: propofol inj 20 ML IV ONE (09:38)
[2022-10-01] MEDS ORDERED: LIDOcaine 2% (20mg/ml) 5ml vial ONE (09:38)
[2022-10-01] MEDS ORDERED: glycopyrrolate 0.2mg/ml inj ONE (09:39)
[2022-10-01] MEDS ORDERED: ondansetron/PF 4mg/2ml inj ONE (09:39)
--- NOTE | 2022-10-01 11:36 | NUR ---
Received from OR via HOSPITAL BED TO RR #6, accompanied by Anesthesiologist ANTONIO and report given by Anesthesiolgist. VSS. PATIENT ON 10L MASK WITH SPO2 100%. LR RUNNING AT 100ML, F/C DRAINING TO GRAVITY, CLEAR, YELLOW URINE. ABD DRESSING LLQ WITH GAUZE AND MEDIPORE, 4 BANDAIDS TO L ABD CDI. SCD'S ON LE. SENIOR NURSE C
[2022-10-01] MEDS ORDERED: naloxone 0.4 mg/ml inj IV PRN (11:45)
--- NOTE | 2022-10-01 12:16 | NUR ---
IS GIVEN TO PATIENT. PATIENT IS NOT READY TO USE IT YET. HE WILL TRY IT LATER PER PATIENT.
[2022-10-01] MEDS: morphine 4 MG/ML inj SYRINge IV PRN ×2 (12:30→13:47)
--- NOTE | 2022-10-01 13:56 | NUR ---
PATIENT REPORT GIVEN TO CONSTANTINO ROBERTS, ALL QUESTIONS, COMMENTS, AND CONCERNS ANSWERED AT THIS TIME. PATIENT TRANSPORTED ON HOSPITAL BED TO ROOM 4024A. PERSONAL BAG WITH PILLOW AND 1 HOSPITAL BAG WITH PATIENT. VSS WITH SPO2 99% ON RA. LR RUNNING AT 100ML/HR. F/C DRAINING TO GRAVITY, URINE REMAINS CY. DRESSING CDI AND [address], CDI. BLL, 2 RAILS UP, CALL LIGHT WITHIN REACH. PATIENT PILLOW GIVEN TO PATIENT PER THEIR REQUEST. ONCOMING NURSE IN ROOM UPON TRANSFER.
--- NOTE | 2022-10-01 14:08 | NUR ---
Received patient to room 4024A accompanied by 2 staff. Patient alert and oriented and c/o pain to "sides" of abdomen. Patient given pain meds prior transfer per oil recovery operator dillon and patient. X4 lap sites to left abd and dressing to right abd CDI. Olivares catheter draining to gravity. Post op vitals started and VSS. Patient belongings bag x1 and backpack at bedside. Oriented patient to room and call light. Call light placed within patient's reach. Patient stating he "feels trapped [place]. The last time I had a room like this it wasn't good for me." Will notify supercharge repair supervisor.
[2022-10-01] MEDS: ringers solution, lacted 1,000 ML IV SCH ×2 (14:19→16:07)
--- NOTE | 2022-10-01 14:39 | NUR ---
Patient refusing to have SCD on. Patient educated about SCD for post op. Patient states he "this is my 5th time here. I know what it's for. I won't get blood clots. I will keep moving my feet" as patient doing heel pumps.
[2022-10-01] MEDS: ceFOXitin inj 1,000 MG in normal saline 100ml IV soln 100 ML IV SCH (16:07)
[2022-10-01] MEDS: HYDROmorphone 1 mg/ml syringe IV PRN ×2 (16:16→19:45)
--- NOTE | 2022-10-01 18:29 | NUR ---
Problems reprioritized. Patient report given, questions answered & plan of care reviewed with CONSTANTINO Wright.
--- NOTE | 2022-10-01 19:00 | NUR ---
Patient in room ORTHO 4018. I have received report from Adriana RN and had the opportunity to ask questions and assume patient care.
[2022-10-02] VITALS (8 sets, daily range): BP systolic 108–132; BP diastolic 62–88; PULSE 59–87; RESP 7–18; TEMP 97.6–97.9; O2SAT 94–98
[2022-10-02] MEDS: ceFOXitin inj 1,000 MG in normal saline 100ml IV soln 100 ML IV SCH (00:04)
[2022-10-02] MEDS: ringers solution, lacted 1,000 ML IV SCH ×2 (04:22→19:00)
[2022-10-02] MEDS: oxyCODONE/APAP 5-325mg tablet PO PRN ×2 (04:27→09:12)
[2022-10-02] MEDS: HYDROmorphone 1 mg/ml syringe IV PRN ×4 (05:32→21:44)
--- NOTE | 2022-10-02 06:00 | NUR ---
Continue AM care of pateint
[2022-10-02 06:45] LABS: BASOPHILS % (AUTO) 0.2 % (0-1); EOSINOPHILS % (AUTO) 0.1 % (0-6); HEMATOCRIT 39.8 % (42.0-52.0); HEMOGLOBIN 13.2 g/dl (14.0-17.9); LYMPHOCYTES # (AUTO) 2.6 X10'3 (1.1-4.8); LYMPHOCYTES % (AUTO) 20.4 % (21-51); MEAN CORPUSCULAR HEMOGLOBIN 28.8 PG (27.0-31.0); MEAN CORPUSCULAR HGB CONC 33.2 g/dL (33.0-36.5); MEAN CORPUSCULAR VOLUME 86.9 FL (78-98); MEAN PLATELET VOLUME 7.2 FL (7.4-10.4); MONOCYTES # (AUTO) 0.8 X10'3 (0-0.9); MONOCYTES % (AUTO) 6.3 % (2-12); NEUTROPHILS # (AUTO) 9.4 X10'3 (1.8-7.7); PLATELET COUNT 430 X10'3 (140-440); RED BLOOD COUNT 4.58 X10'6 (4.70-6.10); RED CELL DISTRIBUTION WIDTH 16.9 % (11.5-14.5); WHITE BLOOD COUNT 12.9 X10'3 (4.5-11.0)
[2022-10-02 06:53] LABS: ALBUMIN 2.8 G/DL (3.4-5.0); ANION GAP 11 (8-16); BLOOD UREA NITROGEN 13 MG/DL (7-18); BUN/CREATININE RATIO 17.8 (10.0-20.0); CALCIUM 8.8 MG/DL (8.5-10.1); CHLORIDE 102 MMOL/L (99-107); CREATININE 0.73 MG/DL (0.60-1.10); GLUCOSE 105 MG/DL (70-104); POTASSIUM 4.3 MMOL/L (3.5-5.1); SODIUM 137 MMOL/L (135-145); TOTAL CARBON DIOXIDE 23.8 MMOL/L (24-32); eGFR > 90 ML/MIN
[2022-10-02] MEDS: enoxaparin 40mg/0.4ml syringe SQ SCH (09:12)
--- NOTE | 2022-10-02 13:00 | NUR ---
Problems reprioritized. Patient report given, questions answered & plan of care reviewed with Kimberlee MEEKS.
--- NOTE | 2022-10-02 17:00 | NUR ---
Pt. found eating cheetos in room. States if we take away his cheetos he will leave AMA. States "you can't make a turd if you don't eat." Educated. Pt. refused education. Surgeon notified. Would like pt. to remain on CL at this time. OK to DC F/C. F/C removed. Pt. educated to let RN know if he has any bladder discomfort or if he urinates. Surgeon may round on pt. in 15-30 min.
--- NOTE | 2022-10-02 17:57 | NUR ---
DC'd Elise with no issues.
--- NOTE | 2022-10-02 19:00 | NUR ---
Gave report to Prudence CONSTANTINO.
--- NOTE | 2022-10-02 19:16 | NUR ---
Patient in room ORTHO 4018. I have received report from CALIN MEEKS and had the opportunity to ask questions and assume patient care.
[2022-10-03] MEDS: ringers solution, lacted 1,000 ML IV SCH ×3 (03:42→23:45)
[2022-10-03] MEDS: oxyCODONE/APAP 5-325mg tablet PO PRN ×3 (03:45→14:21)
[2022-10-03 06:00] VITALS: BP 130/69; PULSE 78; RESP 18; TEMP 98.1; O2SAT 95
--- NOTE | 2022-10-03 06:24 | NUR ---
Problems reprioritized. Patient report given, questions answered & plan of care reviewed with SUKUMAR MEEKS.
[2022-10-03 06:42] LABS: ALBUMIN 2.8 G/DL (3.4-5.0); ANION GAP 10 (8-16); BLOOD UREA NITROGEN 12 MG/DL (7-18); BUN/CREATININE RATIO 16.9 (10.0-20.0); CALCIUM 9.1 MG/DL (8.5-10.1); CHLORIDE 103 MMOL/L (99-107); CREATININE 0.71 MG/DL (0.60-1.10); GLUCOSE 94 MG/DL (70-104); POTASSIUM 3.8 MMOL/L (3.5-5.1); SODIUM 140 MMOL/L (135-145); TOTAL CARBON DIOXIDE 27.3 MMOL/L (24-32); eGFR > 90 ML/MIN
[2022-10-03 06:43] LABS: BASOPHILS % (AUTO) 0.1 % (0-1); EOSINOPHILS # (AUTO) 0.2 X10'3 (0-0.9); EOSINOPHILS % (AUTO) 1.5 % (0-6); HEMATOCRIT 38.8 % (42.0-52.0); HEMOGLOBIN 12.8 g/dl (14.0-17.9); LYMPHOCYTES # (AUTO) 3.4 X10'3 (1.1-4.8); LYMPHOCYTES % (AUTO) 28.5 % (21-51); MEAN CORPUSCULAR HEMOGLOBIN 28.7 PG (27.0-31.0); MEAN CORPUSCULAR HGB CONC 33.1 g/dL (33.0-36.5); MEAN CORPUSCULAR VOLUME 86.8 FL (78-98); MEAN PLATELET VOLUME 7.2 FL (7.4-10.4); MONOCYTES # (AUTO) 0.8 X10'3 (0-0.9); MONOCYTES % (AUTO) 6.8 % (2-12); NEUTROPHILS # (AUTO) 7.6 X10'3 (1.8-7.7); NEUTROPHILS % (AUTO) 63.1 % (42-75); PLATELET COUNT 356 X10'3 (140-440); RED BLOOD COUNT 4.47 X10'6 (4.70-6.10); RED CELL DISTRIBUTION WIDTH 17.5 % (11.5-14.5); WHITE BLOOD COUNT 12.1 X10'3 (4.5-11.0)
[2022-10-03 08:00] VITALS: RESP 16
[2022-10-03] MEDS: enoxaparin 40mg/0.4ml syringe SQ SCH ×2 (08:53→09:42)
[2022-10-03] MEDS: HYDROmorphone 1 mg/ml syringe IV PRN ×2 (10:17→20:36)
[2022-10-03 10:23] VITALS: BP 134/84; PULSE 88; RESP 20; TEMP 98.4; O2SAT 92
[2022-10-03 18:00] VITALS: BP 133/83; PULSE 73; RESP 16; TEMP 98.2; O2SAT 94
--- NOTE | 2022-10-03 18:57 | NUR ---
Patient in room ORTHO 4018. I have received report from SUKUMAR MEEKS and had the opportunity to ask questions and assume patient care.
[2022-10-03 20:00] VITALS: RESP 16; O2SAT 98
[2022-10-03 22:00] VITALS: BP 129/98; PULSE 77; RESP 16; TEMP 97.9; O2SAT 94
[2022-10-04] MEDS: HYDROmorphone 1 mg/ml syringe IV PRN ×2 (00:52→05:22)
--- NOTE | 2022-10-04 06:17 | NUR ---
Problems reprioritized. Patient report given, questions answered & plan of care reviewed with SHRUTI SANCHEZ.
[2022-10-04 06:20] LABS: ANION GAP 6 (8-16); BLOOD UREA NITROGEN 8 MG/DL (7-18); BUN/CREATININE RATIO 10.3 (10.0-20.0); CHLORIDE 101 MMOL/L (99-107); CREATININE 0.78 MG/DL (0.60-1.10); GLUCOSE 98 MG/DL (70-104); POTASSIUM 3.7 MMOL/L (3.5-5.1); SODIUM 137 MMOL/L (135-145); eGFR > 90 ML/MIN
--- NOTE | 2022-10-04 06:20 | NUR ---
Patient in room ORTHO 4018. I have received report from Soco MEEKS and had the opportunity to ask questions and assume patient care.
[2022-10-04 06:22] LABS: BASOPHILS % (AUTO) 0.3 % (0-1); EOSINOPHILS # (AUTO) 0.2 X10'3 (0-0.9); EOSINOPHILS % (AUTO) 1.8 % (0-6); HEMATOCRIT 38.6 % (42.0-52.0); HEMOGLOBIN 12.7 g/dl (14.0-17.9); LYMPHOCYTES % (AUTO) 28.7 % (21-51); MEAN CORPUSCULAR HEMOGLOBIN 28.6 PG (27.0-31.0); MEAN CORPUSCULAR HGB CONC 32.9 g/dL (33.0-36.5); MEAN CORPUSCULAR VOLUME 86.7 FL (78-98); MEAN PLATELET VOLUME 7.3 FL (7.4-10.4); MONOCYTES # (AUTO) 0.7 X10'3 (0-0.9); MONOCYTES % (AUTO) 6.7 % (2-12); NEUTROPHILS # (AUTO) 6.6 X10'3 (1.8-7.7); NEUTROPHILS % (AUTO) 62.5 % (42-75); PLATELET COUNT 375 X10'3 (140-440); RED BLOOD COUNT 4.45 X10'6 (4.70-6.10); WHITE BLOOD COUNT 10.6 X10'3 (4.5-11.0)
[2022-10-04 07:37] VITALS: BP 135/84; PULSE 72; RESP 15; TEMP 97.6; O2SAT 93
[2022-10-04] MEDS: enoxaparin 40mg/0.4ml syringe SQ SCH (07:46)
[2022-10-04 08:00] VITALS: RESP 15; O2SAT 93
[2022-10-04] MEDS ORDERED: OXYC-150 PO (08:44)
--- NOTE | 2022-10-04 10:15 | NUR ---
FREELANCE OPERATOR documentation: I have reviewed and agree with all interventions, assessments performed and documented by Shadia Goel LVN .
--- NOTE | 2022-10-04 10:30 | NUR ---
Patient discharged home today. IV removed by RN. All discharge instructions were explained and questions were answered. Patient alert and appropriate, all belongings were gathered. Patient was wheeled downstairs.
== END 2022-10-04 10:25 | disposition home or self-care (01) | DRG 230 ==
LOC: UNDOADMIN 06:52 → PAS IN 06:52 → ORTHO 4S 13:59
PROVIDERS: ADMIT Surgery; ATTEND Surgery
PROC: 8E0W4CZ Robotic Assisted Procedure of Trunk Region, Percutaneous Endoscopic Approach (ICD-10-PCS; 2022-10-01)
PROC: 0DNE4ZZ Release Large Intestine, Percutaneous Endoscopic Approach (ICD-10-PCS; 2022-10-01)
PROC: 0DN84ZZ Release Small Intestine, Percutaneous Endoscopic Approach (ICD-10-PCS; 2022-10-01)
PROC: 0DNW4ZZ Release Peritoneum, Percutaneous Endoscopic Approach (ICD-10-PCS; 2022-10-01)
PROC: 0DBB4ZZ Excision of Ileum, Percutaneous Endoscopic Approach (ICD-10-PCS; principal; 2022-10-01 09:20)
DX: Z43.2 Encounter for attention to ileostomy (principal); K66.0 Peritoneal adhesions (postprocedural) (postinfection); Z90.49 Acquired absence of other specified parts of digestive tract
CPT/HCPCS: 36415; 80048; 80053; 82948; 85025; 86885; 86900; 86901; 87081; A4215; A4618; A6449; C1758; G0378; J0694; J1100; J1170; J1650; J2250; J2270; J2405; J2704; J2710; J3010; J3490; J7120

== ENCOUNTER 2023-01-09 13:17 | Outpatient (CLI) | payer MEDICAID ==
[~2023-01-09 13:17] MED LIST changes: +OXYC-150 PO; -ceFOXitin 2GM-NS 100mL ADDvant 100 ML IV ONE; -famotidine 20mg tablet PO ONE; -ringers solution, lacted 1,000 ML IV SCH
[2023-01-09 13:54] LABS: BASOPHILS # (AUTO) 0.1 X10'3 (0-0.2); BASOPHILS % (AUTO) 0.5 % (0-1); EOSINOPHILS # (AUTO) 0.2 X10'3 (0-0.9); EOSINOPHILS % (AUTO) 1.6 % (0-6); HEMATOCRIT 43.9 % (42.0-52.0); HEMOGLOBIN 14.9 g/dl (14.0-17.9); LYMPHOCYTES # (AUTO) 3.3 X10'3 (1.1-4.8); LYMPHOCYTES % (AUTO) 33.5 % (21-51); MEAN CORPUSCULAR HEMOGLOBIN 30.1 PG (27.0-31.0); MEAN CORPUSCULAR VOLUME 88.4 FL (78-98); MEAN PLATELET VOLUME 6.8 FL (7.4-10.4); MONOCYTES # (AUTO) 0.6 X10'3 (0-0.9); NEUTROPHILS # (AUTO) 5.8 X10'3 (1.8-7.7); NEUTROPHILS % (AUTO) 58.4 % (42-75); PLATELET COUNT 387 X10'3 (140-440); RED BLOOD COUNT 4.96 X10'6 (4.70-6.10); RED CELL DISTRIBUTION WIDTH 13.5 % (11.5-14.5)
[2023-01-09 14:09] LABS: ALANINE AMINOTRANSFERASE 21 U/L (12-78); ALBUMIN 3.5 G/DL (3.4-5.0); ALBUMIN/GLOBULIN RATIO 0.9 (1.1-1.5); ALKALINE PHOSPHATASE 120 IU/L (46-116); ANION GAP 7 (8-16); ASPARTATE AMINO TRANSFERASE 20 U/L (10-37); BILIRUBIN,TOTAL 0.2 MG/DL (0.1-1.0); BLOOD UREA NITROGEN 18 MG/DL (7-18); BUN/CREATININE RATIO 19.1 (10.0-20.0); CALCIUM 8.7 MG/DL (8.5-10.1); CHLORIDE 104 MMOL/L (99-107); CREATININE 0.94 MG/DL (0.60-1.10); GLUCOSE 94 MG/DL (70-104); POTASSIUM 4.2 MMOL/L (3.5-5.1); SODIUM 138 MMOL/L (135-145); TOTAL CARBON DIOXIDE 26.7 MMOL/L (24-32); TOTAL PROTEIN 7.3 G/DL (6.4-8.2); eGFR 85 ML/MIN
== END 2023-01-09 23:59 | disposition home or self-care (01) ==
LOC: LAB 13:17
PROVIDERS: ATTEND Surgery
DX: R19.7 Diarrhea, unspecified (principal); R10.84 Generalized abdominal pain; R53.83 Other fatigue
CPT/HCPCS: 36415; 80053; 85025; 87177; 87209; 89055

== ENCOUNTER 2023-02-06 20:36 | Emergency (ER) | payer MEDICAID ==
[~2023-02-06] VITALS: Ht 165.1 cm; Wt 82.7 kg
[2023-02-06 20:51] VITALS: BP 171/76; PULSE 115; RESP 18; TEMP 98.6; O2SAT 99
== END 2023-02-07 01:18 | disposition left against medical advice (07) ==
LOC: ER 20:36
DX: K91.872 Postprocedural seroma of a digestive system organ or structure following a digestive system procedure (principal); Z53.21 Procedure and treatment not carried out due to patient leaving prior to being seen by health care provider; Y83.8 Other surgical procedures as the cause of abnormal reaction of the patient, or of later complication, without mention of misadventure at the time of the procedure
CPT/HCPCS: 99281

== ENCOUNTER 2023-02-07 10:34 | Emergency (ER) | payer MEDICAID ==
[~2023-02-07] VITALS: Ht 165.1 cm; Wt 83.0 kg
[2023-02-07 12:25] LABS: BASOPHILS # (AUTO) 0.1 X10'3 (0-0.2); BASOPHILS % (AUTO) 0.6 % (0-1); EOSINOPHILS # (AUTO) 0.2 X10'3 (0-0.9); EOSINOPHILS % (AUTO) 1.8 % (0-6); HEMATOCRIT 45.1 % (42.0-52.0); HEMOGLOBIN 15.8 g/dl (14.0-17.9); LYMPHOCYTES # (AUTO) 4.1 X10'3 (1.1-4.8); LYMPHOCYTES % (AUTO) 42.9 % (21-51); MEAN CORPUSCULAR HEMOGLOBIN 30.7 PG (27.0-31.0); MEAN CORPUSCULAR HGB CONC 34.9 g/dL (33.0-36.5); MEAN CORPUSCULAR VOLUME 87.8 FL (78-98); MEAN PLATELET VOLUME 7.2 FL (7.4-10.4); MONOCYTES # (AUTO) 0.6 X10'3 (0-0.9); MONOCYTES % (AUTO) 6.7 % (2-12); NEUTROPHILS # (AUTO) 4.6 X10'3 (1.8-7.7); PLATELET COUNT 389 X10'3 (140-440); RED BLOOD COUNT 5.14 X10'6 (4.70-6.10); RED CELL DISTRIBUTION WIDTH 12.9 % (11.5-14.5); WHITE BLOOD COUNT 9.5 X10'3 (4.5-11.0)
[2023-02-07 12:51] LABS: ALANINE AMINOTRANSFERASE 23 U/L (12-78); ALBUMIN 3.8 G/DL (3.4-5.0); ALBUMIN/GLOBULIN RATIO 1.1 (1.1-1.5); ALKALINE PHOSPHATASE 114 IU/L (46-116); ANION GAP 7 (8-16); ASPARTATE AMINO TRANSFERASE 22 U/L (10-37); BILIRUBIN,TOTAL 0.3 MG/DL (0.1-1.0); BLOOD UREA NITROGEN 19 MG/DL (7-18); BUN/CREATININE RATIO 17.8 (10.0-20.0); CALCIUM 9.5 MG/DL (8.5-10.1); CHLORIDE 102 MMOL/L (99-107); CREATININE 1.07 MG/DL (0.60-1.10); GLUCOSE 99 MG/DL (70-104); LIPASE 87 U/L (16-77); POTASSIUM 4.5 MMOL/L (3.5-5.1); SODIUM 137 MMOL/L (135-145); TOTAL CARBON DIOXIDE 27.8 MMOL/L (24-32); TOTAL PROTEIN 7.3 G/DL (6.4-8.2); eCRCL 72 ML/MIN; eGFR 73 ML/MIN
[2023-02-07 13:33] VITALS: BP 156/90; PULSE 90; RESP 14; TEMP 98.3; O2SAT 98
== END 2023-02-07 13:37 | disposition home or self-care (01) ==
LOC: ER 10:38
DX: M62.08 Separation of muscle (nontraumatic), other site (principal); Z72.89 Other problems related to lifestyle; Z98.890 Other specified postprocedural states; Z79.899 Other long term (current) drug therapy
CPT/HCPCS: 36415; 80053; 83690; 85025; 99283

== ENCOUNTER 2023-03-25 10:52 | Inpatient (IN) | payer MEDICAID ==
[2023-03-21 15:39] LABS: BASOPHILS % (AUTO) 0.4 % (0-1); EOSINOPHILS # (AUTO) 0.1 X10'3 (0-0.9); EOSINOPHILS % (AUTO) 1.4 % (0-6); HEMATOCRIT 42.7 % (42.0-52.0); HEMOGLOBIN 14.8 g/dl (14.0-17.9); LYMPHOCYTES # (AUTO) 3.8 X10'3 (1.1-4.8); LYMPHOCYTES % (AUTO) 40.1 % (21-51); MEAN CORPUSCULAR HEMOGLOBIN 30.9 PG (27.0-31.0); MEAN CORPUSCULAR HGB CONC 34.6 g/dL (33.0-36.5); MEAN CORPUSCULAR VOLUME 89.2 FL (78-98); MEAN PLATELET VOLUME 7.1 FL (7.4-10.4); MONOCYTES # (AUTO) 0.6 X10'3 (0-0.9); MONOCYTES % (AUTO) 6.3 % (2-12); NEUTROPHILS # (AUTO) 4.9 X10'3 (1.8-7.7); NEUTROPHILS % (AUTO) 51.8 % (42-75); PLATELET COUNT 404 X10'3 (140-440); RED BLOOD COUNT 4.79 X10'6 (4.70-6.10); RED CELL DISTRIBUTION WIDTH 13.5 % (11.5-14.5); WHITE BLOOD COUNT 9.6 X10'3 (4.5-11.0)
[2023-03-21 15:42] LABS: ALANINE AMINOTRANSFERASE 18 U/L (12-78); ALBUMIN 3.5 G/DL (3.4-5.0); ALBUMIN/GLOBULIN RATIO 0.9 (1.1-1.5); ALKALINE PHOSPHATASE 123 IU/L (46-116); ANION GAP 6 (8-16); ASPARTATE AMINO TRANSFERASE 18 U/L (10-37); BILIRUBIN,TOTAL 0.3 MG/DL (0.1-1.0); BLOOD UREA NITROGEN 19 MG/DL (7-18); BUN/CREATININE RATIO 17.9 (10.0-20.0); CALCIUM 9.3 MG/DL (8.5-10.1); CHLORIDE 105 MMOL/L (99-107); CREATININE 1.06 MG/DL (0.60-1.10); GLUCOSE 88 MG/DL (70-104); POTASSIUM 4.6 MMOL/L (3.5-5.1); SODIUM 140 MMOL/L (135-145); TOTAL CARBON DIOXIDE 29.5 MMOL/L (24-32); TOTAL PROTEIN 7.4 G/DL (6.4-8.2); eGFR 74 ML/MIN
[2023-03-25] VITALS (16 sets, daily range): BP systolic 119–137; BP diastolic 76–95; PULSE 82–105; RESP 12–22; TEMP 97.8–98.6; O2SAT 94–100
[~2023-03-25] VITALS: Ht 165.1 cm; Wt 83.5 kg
[~2023-03-25 10:52] MED LIST changes: -OXYC-150 PO; +albuterol 2.5 MG/3 ML nebule NEB ONE; +cefazolin 2gm/D5W 100mL 100 ML IV ONE; +enalaprilat dihydrate 2.5mg/2ml vial IV PRN; +famotidine 20mg tablet PO ONE; +labetalol 20mg/4ml (5mg/ml) syringe IV PRN; +meperidine/PF 25mg/ml syringe IV PRN; +morphine 2 MG/ML inj. syringe IV PRN; +morphine 4 MG/ML inj SYRINge IV PRN; +ondansetron/PF 4mg/2ml inj IV PRN; +proCHLORperazine 10 MG/2 ml inj IV PRN; +ringers solution, lacted 1,000 ML IV SCH
[2023-03-25] MEDS ORDERED: midazolam 1 mg/ML 2ml injection ONE (11:53)
[2023-03-25] MEDS ORDERED: fentaNYL /PF 50mcg/ml 5ml ampule ONE (11:53)
[2023-03-25] MEDS ORDERED: LIDOcaine 2% (20mg/ml) 5ml vial ONE (11:54)
[2023-03-25] MEDS ORDERED: propofol inj 20 ML IV ONE (11:54)
[2023-03-25] MEDS ORDERED: glycopyrrolate 0.2mg/ml inj ONE (12:33)
[2023-03-25] MEDS ORDERED: dexamethasone sod phosphate 10mg/ml inj ONE (12:33)
[2023-03-25] MEDS ORDERED: ondansetron/PF 4mg/2ml inj ONE (12:33)
[2023-03-25] MEDS ORDERED: neostigmine methylsulfate 1 MG/ML 10ml vial ONE (12:33)
[2023-03-25] MEDS ORDERED: rocuronium 10mg/ml inj IV ONE ×2 (12:33→12:41)
[2023-03-25] MEDS ORDERED: sevoflurane 250ml liquid IH ONE (12:33)
[2023-03-25] MEDS ORDERED: LIDOcaine 1% (10mg/ml)w/preservative inj. 20ml MDV ONE (12:55)
[2023-03-25] MEDS ORDERED: BUPIVACAINE liposomal/PF 13.3 MG/ML vial IM ONE (12:56)
[2023-03-25] MEDS ORDERED: BUPIVAcaine 2.5mg/ml inj 50ml vial (contains preservative) ONE ×2 (12:56→13:02)
[2023-03-25] MEDS ORDERED: ketorolac trometh. 30mg/ml inj. ONE (14:58)
[2023-03-25] MEDS ORDERED: acetaminophen 1,000mg/100ml IV 100 ML IV ONE (14:59)
[2023-03-25] MEDS: normal saline 1000ml 1,000 ML IV SCH ×2 (15:30→20:41)
[2023-03-25] MEDS ORDERED: HYDROmorph/NS 0.2 mg/ml PCA 100 ML IV SCH (15:30)
[2023-03-25] MEDS ORDERED: naloxone 0.4 mg/ml inj IV PRN (15:30)
[2023-03-25] MEDS ORDERED: potassium CL 20mEq in D5-1/2NS 1,000 ML IV SCH (15:30)
[2023-03-25] MEDS: HYDROmorph/NS 0.2 mg/ml PCA 100 ML IV SCH ×4 (16:36→23:00)
[2023-03-26] VITALS (8 sets, daily range): BP systolic 103–131; BP diastolic 42–88; PULSE 78–91; RESP 14–21; TEMP 97.2–99.9; O2SAT 91–92
[2023-03-26] MEDS: HYDROmorph/NS 0.2 mg/ml PCA 100 ML IV SCH ×6 (01:00→23:00)
[2023-03-26 07:07] LABS: ANION GAP 9 (8-16); BLOOD UREA NITROGEN 22 MG/DL (7-18); BUN/CREATININE RATIO 20.6 (10.0-20.0); CALCIUM 7.9 MG/DL (8.5-10.1); CHLORIDE 104 MMOL/L (99-107); CREATININE 1.07 MG/DL (0.60-1.10); GLUCOSE 146 MG/DL (70-104); POTASSIUM 4.2 MMOL/L (3.5-5.1); SODIUM 136 MMOL/L (135-145); TOTAL CARBON DIOXIDE 22.6 MMOL/L (24-32); eCRCL 72 ML/MIN; eGFR 73 ML/MIN
[2023-03-26 07:08] LABS: BASOPHILS % (AUTO) 0.1 % (0-1); EOSINOPHILS % (AUTO) 0 % (0-6); HEMATOCRIT 42.7 % (42.0-52.0); HEMOGLOBIN 14.2 g/dl (14.0-17.9); LYMPHOCYTES # (AUTO) 1.8 X10'3 (1.1-4.8); LYMPHOCYTES % (AUTO) 14.1 % (21-51); MEAN CORPUSCULAR HEMOGLOBIN 30.2 PG (27.0-31.0); MEAN CORPUSCULAR HGB CONC 33.3 g/dL (33.0-36.5); MEAN CORPUSCULAR VOLUME 90.9 FL (78-98); MEAN PLATELET VOLUME 7.1 FL (7.4-10.4); MONOCYTES # (AUTO) 0.8 X10'3 (0-0.9); MONOCYTES % (AUTO) 6.4 % (2-12); NEUTROPHILS # (AUTO) 10.3 X10'3 (1.8-7.7); NEUTROPHILS % (AUTO) 79.4 % (42-75); PLATELET COUNT 375 X10'3 (140-440); RED CELL DISTRIBUTION WIDTH 13.8 % (11.5-14.5)
[2023-03-26] MEDS: enoxaparin 40mg/0.4ml syringe SQ SCH (08:41)
[2023-03-26] MEDS ORDERED: PCA WASTE DOCUMENTATION 1 MG ML MC SCH (19:05)
[2023-03-27] VITALS (8 sets, daily range): BP systolic 119–153; BP diastolic 79–98; PULSE 83–93; RESP 11–22; TEMP 97.9–100.4; O2SAT 91–97
[2023-03-27] MEDS: HYDROmorph/NS 0.2 mg/ml PCA 100 ML IV SCH ×11 (01:00→21:00)
[2023-03-27] MEDS ORDERED: LidoCAINE 2% Topical Jelly 11mL syringe TOP ONE (03:25)
[2023-03-27 07:10] LABS: ALBUMIN 2.8 G/DL (3.4-5.0); ANION GAP 8 (8-16); BASOPHILS % (AUTO) 0.2 % (0-1); BLOOD UREA NITROGEN 16 MG/DL (7-18); BUN/CREATININE RATIO 19.5 (10.0-20.0); CALCIUM 8.2 MG/DL (8.5-10.1); CHLORIDE 103 MMOL/L (99-107); CREATININE 0.82 MG/DL (0.60-1.10); EOSINOPHILS # (AUTO) 0.2 X10'3 (0-0.9); EOSINOPHILS % (AUTO) 1.4 % (0-6); GLUCOSE 114 MG/DL (70-104); HEMATOCRIT 41.1 % (42.0-52.0); HEMOGLOBIN 13.7 g/dl (14.0-17.9); LYMPHOCYTES % (AUTO) 15.6 % (21-51); MEAN CORPUSCULAR HGB CONC 33.4 g/dL (33.0-36.5); MEAN CORPUSCULAR VOLUME 89.8 FL (78-98); MEAN PLATELET VOLUME 6.9 FL (7.4-10.4); MONOCYTES # (AUTO) 1.1 X10'3 (0-0.9); NEUTROPHILS # (AUTO) 9.3 X10'3 (1.8-7.7); NEUTROPHILS % (AUTO) 73.8 % (42-75); PLATELET COUNT 268 X10'3 (140-440); POTASSIUM 3.6 MMOL/L (3.5-5.1); RED BLOOD COUNT 4.58 X10'6 (4.70-6.10); RED CELL DISTRIBUTION WIDTH 13.5 % (11.5-14.5); SODIUM 136 MMOL/L (135-145); TOTAL CARBON DIOXIDE 24.9 MMOL/L (24-32); WHITE BLOOD COUNT 12.6 X10'3 (4.5-11.0); eCRCL 94 ML/MIN; eGFR > 90 ML/MIN
[2023-03-27] MEDS: enoxaparin 40mg/0.4ml syringe SQ SCH (08:45)
[2023-03-27] MEDS ORDERED: magnesium hydroxide 30ml (MOM) UD suspension PO ONE (16:20)
[2023-03-27] MEDS ORDERED: oxyCODONE/APAP 10/325mg tablet PO ONE (16:20)
[2023-03-27] MEDS ORDERED: acetylcysteine 200 MG/ml 4ml vial INH ONE (16:20)
[2023-03-27] MEDS ORDERED: oxyCODONE/APAP 10/325mg tablet PO PRN (16:20)
[2023-03-28 02:00] VITALS: BP 144/95; PULSE 88; RESP 19; TEMP 97.5; O2SAT 95
[2023-03-28 05:03] LABS: BASOPHILS % (AUTO) 0.2 % (0-1); EOSINOPHILS # (AUTO) 0.1 X10'3 (0-0.9); EOSINOPHILS % (AUTO) 1.7 % (0-6); HEMATOCRIT 39.8 % (42.0-52.0); HEMOGLOBIN 13.5 g/dl (14.0-17.9); LYMPHOCYTES # (AUTO) 1.9 X10'3 (1.1-4.8); LYMPHOCYTES % (AUTO) 23.6 % (21-51); MEAN CORPUSCULAR HEMOGLOBIN 30.4 PG (27.0-31.0); MEAN CORPUSCULAR HGB CONC 33.8 g/dL (33.0-36.5); MEAN CORPUSCULAR VOLUME 89.9 FL (78-98); MEAN PLATELET VOLUME 7.3 FL (7.4-10.4); MONOCYTES # (AUTO) 0.6 X10'3 (0-0.9); MONOCYTES % (AUTO) 7.4 % (2-12); NEUTROPHILS # (AUTO) 5.5 X10'3 (1.8-7.7); NEUTROPHILS % (AUTO) 67.1 % (42-75); PLATELET COUNT 259 X10'3 (140-440); RED BLOOD COUNT 4.42 X10'6 (4.70-6.10); RED CELL DISTRIBUTION WIDTH 13.7 % (11.5-14.5); WHITE BLOOD COUNT 8.2 X10'3 (4.5-11.0)
[2023-03-28 05:09] LABS: ALBUMIN 2.7 G/DL (3.4-5.0); ANION GAP 7 (8-16); BLOOD UREA NITROGEN 13 MG/DL (7-18); BUN/CREATININE RATIO 16.5 (10.0-20.0); CALCIUM 8.6 MG/DL (8.5-10.1); CHLORIDE 101 MMOL/L (99-107); CREATININE 0.79 MG/DL (0.60-1.10); GLUCOSE 95 MG/DL (70-104); POTASSIUM 3.7 MMOL/L (3.5-5.1); SODIUM 134 MMOL/L (135-145); TOTAL CARBON DIOXIDE 26.2 MMOL/L (24-32); eCRCL 97 ML/MIN; eGFR > 90 ML/MIN
[2023-03-28 06:00] VITALS: BP 141/106; PULSE 93; RESP 18; TEMP 97.6; O2SAT 95
[2023-03-28 08:00] VITALS: RESP 18; O2SAT 95
[2023-03-28] MEDS: enoxaparin 40mg/0.4ml syringe SQ SCH (08:00)
[2023-03-28] MEDS ORDERED: OXYC1TAB17 PO (08:28)
[2023-03-28 08:30] VITALS: RESP 20; O2SAT 96
== END 2023-03-28 09:02 | disposition home or self-care (01) | DRG 227 ==
LOC: PAS IN 10:52 → PCU 3S 17:14
PROVIDERS: ADMIT Surgery; ATTEND Surgery
PROC: 8E0W4CZ Robotic Assisted Procedure of Trunk Region, Percutaneous Endoscopic Approach (ICD-10-PCS; 2023-03-25)
PROC: 0DN84ZZ Release Small Intestine, Percutaneous Endoscopic Approach (ICD-10-PCS; 2023-03-25)
PROC: 3E0T3BZ Introduction of Anesthetic Agent into Peripheral Nerves and Plexi, Percutaneous Approach (ICD-10-PCS; 2023-03-25)
PROC: 0DNE4ZZ Release Large Intestine, Percutaneous Endoscopic Approach (ICD-10-PCS; 2023-03-25)
PROC: 0DNU4ZZ Release Omentum, Percutaneous Endoscopic Approach (ICD-10-PCS; 2023-03-25)
PROC: 0WUF4JZ Supplement Abdominal Wall with Synthetic Substitute, Percutaneous Endoscopic Approach (ICD-10-PCS; principal; 2023-03-25 12:33)
DX: K43.2 Incisional hernia without obstruction or gangrene (principal); K56.7 Ileus, unspecified; K66.0 Peritoneal adhesions (postprocedural) (postinfection); M62.08 Separation of muscle (nontraumatic), other site; R33.9 Retention of urine, unspecified
CPT/HCPCS: 36415; 80048; 80053; 82948; 85025; 86885; 93005; A4215; A4314; A4340; A4615; A4618; C1758; C1781; C9290; G0378; J0131; J0690; J1100; J1170; J1650; J1885; J2175; J2250; J2270; J2405; J2704; J2710; J3010; J3490; J7030; J7120